=== PATIENT | female | born 1995 | race Caucasian/White ===

== ENCOUNTER 2023-07-24 21:26 | Inpatient (IN) ==
[2023-07-24 22:18] LABS: Appearance Urine Clear (Clear); Bacteria Urine Automated Negative (Negative); Bilirubin Urine Negative (Negative); Blood Urine 1+ (Negative); Color Urine Yellow; Epithelial Cell Urine Auto >30 /lpf (0-5); Glucose Urine UA Trace (Negative); Ketones Urine Negative (Negative); Leukocyte Esterase Urine Negative (Negative); Nitrite Urine Negative (Negative); Protein Urine 3+ (Negative); RBC Urine Automated 0-4 /hpf (0-4); Specific Gravity Urine 1.011 (1.000-1.030); Urobilinogen Urine Negative (Negative)
[2023-07-24 22:21] LABS: Basophils # (auto) 0.04 K/uL (0.00-0.20); Basophils % (auto) 0.5 %; Eosinophils # (auto) 0.12 K/uL (0.00-0.50); Eosinophils % (auto) 1.5 %; Hematocrit (blood only) 32.5 % (37.0-47.0); Hemoglobin 11.4 g/dl (12.0-16.0); Immature Granulocytes # (auto) 0.03 K/uL (0.01-0.20); Immature Granulocytes % (auto) 0.4 %; Lymphocytes # (auto) 1.22 K/uL (1.20-3.40); Lymphocytes % (auto) 15.3 %; Mean Corpuscular Hemoglobin 30.6 pg (25.0-34.0); Mean Corpuscular Hgb Conc 35.1 g/dL (32.0-36.0); Mean Corpuscular Volume 87.4 fL (80.0-100.0); Mean Platelet Volume 10.4 fL (9.4-12.4); Monocytes # (auto) 0.34 K/uL (0.11-0.59); Monocytes % (auto) 4.3 %; Neutrophils # (auto) 6.22 K/uL (1.40-6.50); Platelet Count 166 K/uL (130-400); RDW Coefficient of Variation 12.4 % (11.5-14.5); RDW Standard Deviation 39.8 fL (36.4-46.3); Red Blood Count 3.72 M/uL (4.20-5.40); White Blood Count 7.97 K/ul (4.8-10.8)
--- NOTE | 2023-07-24 22:32 | Emergency Department Note ---
History of Present Illness General Chief complaint: Abdominal Pain Stated complaint: ABDOMINAL PAIN, ON DIALYSIS, POSSIBLE PARATINITIS Time Seen by Provider: 07/24/23 22:10 History of Present Illness Maximum Pain Intensity: 7 This is a 28-year-old female presenting to the emergency department for evaluation of abdominal pains worsening over the past 4 to 5 hours. The patient has a history of chronic kidney disease and follows primarily with [facility] for PCP and transplant services. She began peritoneal dialysis about 2 months ago and reached out to her nephrology team, who sent her to the ER for possible peritonitis. Patient has not had fevers or chills. She has some discomfort at the exit site of her PD catheter. Her effluent has been clear and certainly not cloudy. She does make a small amount of urine, and this has not been uncomfortable. She rates her discomfort a 7/10. Home Medications Medication Instructions Recorded Confirmed Type carvedilol 12.5 mg tablet 12.5 mg PO BID 07/24/23 07/24/23 History levofloxacin 250 mg tablet 250 mg PO DAILY 07/24/23 07/24/23 History levothyroxine 50 mcg tablet 50 mcg PO DAILYBB 07/24/23 07/24/23 History promethazine-DM 6.25 mg-15 mg/5 mL 5 ml PO QID PRN Cough 07/24/23 07/24/23 History oral syrup Allergies Allergy/AdvReac Type Severity Reaction Status Date / Time amoxicillin [From Augmentin] Allergy Intermediate Rash Verified 07/24/23 23:24 clavulanic acid Allergy Intermediate Rash Verified 07/24/23 23:24 [From Augmentin] pollen extracts Allergy Intermediate ITCHY Verified 07/24/23 23:24 EYES, SNEEZING, CONGESTION Past Med/Surg History Medical History (Updated 07/25/23 @ 04:35 by Denzel Ruffin PA-C) Proteinuria FSGS (focal segmental glomerulosclerosis) Nephrotic syndrome Chronic kidney disease, stage V Surgical History (Updated 07/24/23 @ 22:31 by Denzel Ruffin PA-C) History of section H/O laparoscopy With intraperitoneal catheter placement performed 05/29/2023 Dr. Laci Elena @ [facility]. Social History Smoking Status: Never smoker Feels Safe at Home: Yes Review of Systems A total of 10 systems reviewed and were otherwise negative Physical Exam Vital Signs Vital Signs - 24 hr 07/24/23 21:34 07/24/23 22:22 07/25/23 01:00 Temperature 36.5 C Temperature Source Temporal Artery Scan Pulse Rate 103 H Pulse Rate [Finger] Pulse Rate [Right Radial] 86 87 Respiratory Rate 18 18 17 Respiratory Effort / Characteristics Non-Labored Spontaneous Respiratory Depth Normal Blood Pressure 140/88 Blood Pressure [Right Arm] 140/86 138/83 Blood Pressure Mean 105 Blood Pressure Mean [Right Arm] 104 101 Pulse Oximetry 100 99 99 Oxygen Delivery Method Room Air Room Air Room Air Sepsis Recent Fever Within 48 Hours No Sepsis New/Unexplained Change in Mental Status No Sepsis Action Taken by Nursing No Action Required 07/25/23 02:57 07/25/23 04:18 Temperature Temperature Source Pulse Rate Pulse Rate [Finger] 75 62 Pulse Rate [Right Radial] Respiratory Rate 20 16 Respiratory Effort / Characteristics Respiratory Depth Blood Pressure Blood Pressure [Right Arm] 138/83 132/80 Blood Pressure Mean Blood Pressure Mean [Right Arm] 101 97 Pulse Oximetry 99 97 Oxygen Delivery Method Room Air Room Air Sepsis Recent Fever Within 48 Hours Sepsis New/Unexplained Change in Mental Status Sepsis Action Taken by Nursing VITALS: Vitals are noted on the nurse's note and reviewed by myself. Vital signs stable. GENERAL: Well-developed, well-nourished, white female, who is in no acute distress and resting comfortably. Patient is cooperative with the examination. HEAD: Normocephalic atraumatic. MOUTH: Mucous membranes moist. Tonsils are not enlarged. Pharynx without erythema, blood, or exudate. Uvula midline. Airway patent. NECK: Supple without nuchal rigidity. No lymphadenopathy. No thyromegaly. Cervical spine is nontender. HEART: Regular rate and rhythm without murmurs gallops or rubs. LUNGS: Clear to auscultation bilaterally without wheezes, rales or rhonchi. No retractions or accessory muscle use. ABDOMEN: Positive normal bowel sounds x 4. Soft, nontender, without masses or organomegaly. No guarding or rebound tenderness. PD catheter site appears appropriately positioned. Course Administered Medications Discontinued Medications Acetaminophen (Acetaminophen 500 Mg Tab) 1,000 mg PO NOW STA Stop: 07/25/23 03:00 Last Admin: 07/25/23 03:04 Dose: 1,000 mg Documented By: DOLLY Medical Decision Making Differential Diagnosis Differential diagnosis: Etiologies such as biliary colic, cholecystitis, hepatitis, pancreatitis, cardiac disease, pancreatitis, gastritis, peptic ulcer disease, appendicitis, cystitis, diverticulitis, mesenteric ischemia, inflammatory bowel disease, ileus, bowel obstruction, testicular/adnexal torsion, aortic pathology, shingles, as well as others were considered Laboratory Data 07/24/23 Unknown 07/24/23 Unknown Lab Results 07/24/23 07/24/23 07/24/23 Range/Units 21:50 21:51 Unknown WBC 7.97 (4.8-10.8) K/ul RBC 3.72 L (4.20-5.40) M/uL Hgb 11.4 L (12.0-16.0) g/dl Hct 32.5 L (37.0-47.0) % MCV 87.4 (80.0-100.0) fL MCH 30.6 (25.0-34.0) pg MCHC 35.1 (32.0-36.0) g/dL RDW Std Deviation 39.8 (36.4-46.3) fL RDW Coeff of [place] 12.4 (11.5-14.5) % Plt Count 166 (130-400) K/uL MPV 10.4 (9.4-12.4) fL Immature Gran % (Auto) 0.4 % Neut % (Auto) 78.0 % Lymph % (Auto) 15.3 % [place] % (Auto) 4.3 % Eos % (Auto) 1.5 % Baso % (Auto) 0.5 % Neut # (Auto) 6.22 (1.40-6.50) K/uL Lymph # (Auto) 1.22 (1.20-3.40) K/uL [place] # (Auto) 0.34 (0.11-0.59) K/uL Eos # (Auto) 0.12 (0.00-0.50) K/uL Baso # (Auto) 0.04 (0.00-0.20) K/uL Immature Gran # (Auto) 0.03 (0.01-0.20) K/uL Sodium 136 (136-145) mmol/L Potassium 3.4 L (3.5-5.1) mmol/L Chloride 97 L (98-107) mmol/L Carbon Dioxide 27 (21-32) mmol/L Anion Gap 12 H (3-11) BUN 60 H (6-23) mg/dl Creatinine 9.79 H* (0.6-1.2) mg/dl Est Cr Clr Drug Dosing 9.1 ml/min Est GFR ( Amer) 5.7 ml/min Est GFR (Non-Af Amer) 4.9 ml/min BUN/Creatinine Ratio 6.1 L (10-20) Glucose 84 (70-99(Fasting)) mg/dl Lactate 0.7 (0.4-2.0) mmol/L Calcium 9.2 (8.6-10.3) mg/dl Total Bilirubin 0.4 (0.2-1.0) mg/dl AST 14 (13-39) U/L ALT 15 (7-52) U/L Alkaline Phosphatase 83 (34-104) U/L Total Protein 7.1 (6.0-8.3) gm/dl Albumin 4.1 (3.4-5.0) gm/dl Globulin 3.0 (2.5-4.0) gm/dl Albumin/Globulin Ratio 1.4 (0.9-2) Lipase 25 (11-82) U/L Urine Color Yellow Urine Appearance Clear (Clear) Urine pH 7.0 (4.5-7.5) Ur Specific [place] 1.011 (1.000-1.030) Urine Protein 3+ H (Negative) Urine Glucose (UA) Trace H (Negative) Urine Ketones Negative (Negative) Urine Blood 1+ H (Negative) Urine Nitrite Negative (Negative) Urine Bilirubin Negative (Negative) Urine Urobilinogen Negative (Negative) Ur Leukocyte Esterase Negative (Negative) Urine WBC (Auto) 1-5 (0-5) /hpf Urine RBC (Auto) 0-4 (0-4) /hpf U Hyaline Cast (Auto) 1-5 (0-5) /lpf U Epithel Cells (Auto) >30 H (0-5) /lpf Urine Bacteria (Auto) Negative (Negative) POC Ur Test NEG (NEG) Adenovirus (PCR) Not Detected (NotDetected) B. pertussis DNA (PCR) Not Detected (NotDetected) B.parapertussis DNA PCR Not Detected (NotDetected) C. pneumoniae DNA (PCR) Not Detected (NotDetected) Coronavirus OC43 (PCR) Not Detected (NotDetected) Coronavirus HKU1 (PCR) Not Detected (NotDetected) Coronavirus 229E (PCR) Not Detected (NotDetected) SARS-CoV-2 (PCR) Not Detected (NotDetected) Coronavirus NL63 (PCR) Not Detected (NotDetected) Human Metapneumovir PCR Not Detected (NotDetected) Influenza Type A (PCR) Not Detected (NotDetected) Influenza Type B (PCR) Not Detected (NotDetected) M. pneumoniae (PCR) Not Detected (NotDetected) Parainfluenza 1 (PCR) Not Detected (NotDetected) Parainfluenza 2 (PCR) Not Detected (NotDetected) Parainfluenza 3 (PCR) Not Detected (NotDetected) Parainfluenza 4 (PCR) Not Detected (NotDetected) RSV (PCR) Not Detected (NotDetected) Entero/Rhino (PCR) Not Detected (NotDetected) Imaging Data Radiologist's Impression: Abdomen/Pelvis CT 07/24/23 22:24 Exam(s): CT ABDOMEN + PELVIS Without Contrast EXAM: CT Abdomen and Pelvis Without Intravenous Contrast CLINICAL HISTORY: Pain. TECHNIQUE: Axial computed tomography images of the abdomen and pelvis without intravenous contrast. CTDI is 22.78 mGy and DLP is 1180.04 mGy-cm. Automated exposure control was utilized for the study. A dose lowering technique was utilized adhering to the principles of ALARA. COMPARISON: No relevant prior studies available. FINDINGS: Lung bases: Unremarkable. No mass. No consolidation. ABDOMEN: Liver: Unremarkable. Gallbladder and bile ducts: Unremarkable. No calcified stones. No ductal dilation. Pancreas: Unremarkable. No ductal dilation. Spleen: Unremarkable. No splenomegaly. Adrenals: Unremarkable. No mass. Kidneys and ureters: Atrophic kidneys. No obstructing stones. No hydronephrosis. Stomach and bowel: Unremarkable. No obstruction. No mucosal thickening. PELVIS: Appendix: Normal appendix. Bladder: Thickening of the urinary bladder wall could relate to nondistention or cystitis. No stones. Reproductive: Unremarkable as visualized. ABDOMEN and PELVIS: Intraperitoneal space: Trace free air likely relates to the peritoneal dialysis catheter. No significant fluid collection. Bones/joints: There are degenerative changes of the spine. No acute fracture. No dislocation. Soft tissues: Unremarkable. Vasculature: Unremarkable. No abdominal aortic aneurysm. Lymph nodes: Unremarkable. No enlarged lymph nodes. Tubes, lines and devices: There is a peritoneal dialysis catheter. IMPRESSION: 1. Thickening of the urinary bladder wall could relate to nondistention or cystitis. 2. Atrophic kidneys. Electronically signed by: Bronwyn Sandy MD 07/25/23 00:43 AM MDM Narrative Physical exam and history were performed. Nursing notes, EMR, and Medication List were personally reviewed. No social concerns were identified as barriers to patients care. I did engage with case management and reviewed patient's outpatient [facility] records including PCP and transplant notes. Patient appears to have abdominal discomfort bringing her to the ER. Symptoms have been ongoing for the past several hours. She does not appear toxic on exam and abdomen is fairly soft without significant reproducible tenderness. I discussed options of care with the patient. IV access was established and labs were obtained. She was sent to CT scan for imaging of her abdomen and pelvis. Patient's blood work is as above and was reviewed. She does not have a significantly elevated white blood cell count, gross anemia, bandemia, or significant electrolyte imbalance. Potassium is 3.4. Creatinine is greater than 9, and this is fairly consistent for the patient over the past 1 to 2 months per her outpatient labs. Lactic is negative with blood cultures pending. I did reach out to the on-call [facility] cotton expert, Dr Mo, and after discussion with nephrology it would be reasonable to bring the patient into the ER. She may need peritoneal fluid tapping for culture, as well as possibly peritoneal antibiotics. She does not appear toxic on current presentation, and the case was discussed with the [facility] hospitalist team. [facility] further patient course, plan, and disposition. The chart was completed utilizing [employer] Speech Voice Recognition Software. Grammatical errors, random word insertions, pronoun errors, and incomplete sentences are an occasional consequence of this system due to software limitations, ambient noise, and hardware issues. Any formal questions or concerns about the content, text, or information contained within the body of this dictation should be directly addressed to the provider for clarification. . Impression & Plan Abdominal pain, Chronic kidney disease, stage V, Complication of peritoneal dialysis Discharge Plan Visit Data Chief Complaint: Abdominal Pain Stated Complaint: ABDOMINAL PAIN, ON DIALYSIS, POSSIBLE PARATINITIS ED Provider: Emerson Yun ED Midlevel Provider: Denzel Ruffin Discharge Problem: Abdominal pain, Chronic kidney disease, stage V, Complication of peritoneal dialysis Forms Stand Alone Forms: My [facility] Prescriptions Prescriptions: No Action carvedilol 12.5 mg tablet 12.5 mg PO BID levofloxacin 250 mg Tablet 250 mg PO DAILY Rx Instructions: STARTED 07/23/23/ FOR 3 DAYS levothyroxine 50 mcg tablet 50 mcg PO DAILYBB promethazine-DM 6.25-15 mg/5 mL syrup 5 ml PO QID PRN (Reason: Cough) Referrals Referrals: PCP,NO [Physician] -
[2023-07-24 22:48] LABS: Albumin Globulin Ratio 1.4 (0.9-2); Albumin Level 4.1 gm/dl (3.4-5.0); BUN Creatinine Ratio 6.1 (10-20); Bilirubin,Total 0.4 mg/dl (0.2-1.0); Calcium 9.2 mg/dl (8.6-10.3); Creatinine Clr Calc Pharmacy 9.1 ml/min; Est GFR (African American) 5.7 ml/min; Est GFR (Non-African American) 4.9 ml/min; Potassium 3.4 mmol/L (3.5-5.1); Total Protein 7.1 gm/dl (6.0-8.3)
[2023-07-24 23:47] LABS: Adenovirus PCR Not Detected (NotDetected); Bordetella parapertussis PCR Not Detected (NotDetected); Bordetella pertussis PCR Not Detected (NotDetected); Chlamydia pneumoniae PCR Not Detected (NotDetected); Coronavirus 229E PCR Not Detected (NotDetected); Coronavirus CoV-2 (COVID19)PCR Not Detected (NotDetected); Coronavirus HKU1 PCR Not Detected (NotDetected); Coronavirus NL63 PCR Not Detected (NotDetected); Coronavirus OC43PCR Not Detected (NotDetected); Human Metapneumovirus PCR Not Detected (NotDetected); Influenza A PCR Not Detected (NotDetected); Influenza B PCR Not Detected (NotDetected); Mycoplasma pneumoniae PCR Not Detected (NotDetected); Parainfluenza Virus 1 PCR Not Detected (NotDetected); Parainfluenza Virus 2 PCR Not Detected (NotDetected); Parainfluenza Virus 3 PCR Not Detected (NotDetected); Parainfluenza Virus 4 PCR Not Detected (NotDetected); Respiratory Syncytial VirusPCR Not Detected (NotDetected); Rhinovirus/Enterovirus PCR Not Detected (NotDetected)
[2023-07-25] MEDS ORDERED: cephALEXin 500 MG CAP PO SCH
--- NOTE | 2023-07-25 00:44 | CT Scan Report ---
Exam(s): CT ABDOMEN + PELVIS Without Contrast EXAM: CT Abdomen and Pelvis Without Intravenous Contrast CLINICAL HISTORY: Pain. TECHNIQUE: Axial computed tomography images of the abdomen and pelvis without intravenous contrast. CTDI is 22.78 mGy and DLP is 1180.04 mGy-cm. Automated exposure control was utilized for the study. A dose lowering technique was utilized adhering to the principles of ALARA. COMPARISON: No relevant prior studies available. FINDINGS: Lung bases: Unremarkable. No mass. No consolidation. ABDOMEN: Liver: Unremarkable. Gallbladder and bile ducts: Unremarkable. No calcified stones. No ductal dilation. Pancreas: Unremarkable. No ductal dilation. Spleen: Unremarkable. No splenomegaly. Adrenals: Unremarkable. No mass. Kidneys and ureters: Atrophic kidneys. No obstructing stones. No hydronephrosis. Stomach and bowel: Unremarkable. No obstruction. No mucosal thickening. PELVIS: Appendix: Normal appendix. Bladder: Thickening of the urinary bladder wall could relate to nondistention or cystitis. No stones. Reproductive: Unremarkable as visualized. ABDOMEN and PELVIS: Intraperitoneal space: Trace free air likely relates to the peritoneal dialysis catheter. No significant fluid collection. Bones/joints: There are degenerative changes of the spine. No acute fracture. No dislocation. Soft tissues: Unremarkable. Vasculature: Unremarkable. No abdominal aortic aneurysm. Lymph nodes: Unremarkable. No enlarged lymph nodes. Tubes, lines and devices: There is a peritoneal dialysis catheter. IMPRESSION: 1. Thickening of the urinary bladder wall could relate to nondistention or cystitis. 2. Atrophic kidneys. Electronically signed by: Bronwyn Sandy MD 07/25/23 00:43 AM
[2023-07-25] MEDS ORDERED: ACETAMINOPHEN 500 MG TAB PO STA (02:59)
--- NOTE | 2023-07-25 05:47 | History & Physical Report ---
Date of Service July 25, 2023 Assessment & Plan (1) Abdominal pain: Plan: 28-year-old female with past medical history significant for hypothyroidism, hypertension, nephrotic syndrome, focal segmental glomerulosclerosis with nephrosis,end-stage renal disease on peritoneal dialysis, history of abnormal uterine bleeding, anxiety and depression presents with severe abdominal pain. Pain is located around peritoneal dialysis catheter site. Denies any fevers. No chest pain or shortness of breath. No nausea. No headache. No runny nose or sore throat or cough. No diarrhea or constipation. Hemodynamics are stable. Abdominal pain Possible PD cath site infection CT scan no obvious findings Pain control IV Invanz for now Consult nephrology for further recommendations History of focal segmental glomerulosclerosis End-stage renal disease on peritoneal dialysis Nephro consult Hypertension On Coreg Hypothyroidism On Synthyroid DVT prophylaxis SCDs for now Disposition Medical floor Full code History of Present Illness Chief Complaint: Abdominal pain Primary Care Provider: Robert Gtz 28-year-old female with past medical history significant for hypothyroidism, hypertension, nephrotic syndrome, focal segmental glomerulosclerosis with nephrosis,end-stage renal disease on peritoneal dialysis, history of abnormal uterine bleeding, anxiety and depression presents with severe abdominal pain. Pain is located around peritoneal dialysis catheter site. Denies any fevers. No chest pain or shortness of breath. No nausea. No headache. No runny nose or sore throat or cough. No diarrhea or constipation. Hemodynamics are stable. Past medical history. As mentioned above Past surgical history. . Insert contraceptive capsules. IR biopsy. Laparoscopic insertion of intraperitoneal cannula. Renal biopsy. Social history. No smoking. No alcohol use. No drug use. Family history. Father has scoliosis. Allergies Allergy/AdvReac Type Severity Reaction Status Date / Time amoxicillin [From Augmentin] Allergy Intermediate Rash Verified 07/24/23 23:24 clavulanic acid Allergy Intermediate Rash Verified 07/24/23 23:24 [From Augmentin] pollen extracts Allergy Intermediate ITCHY Verified 07/24/23 23:24 EYES, SNEEZING, CONGESTION Home Medications Medication Instructions Recorded Confirmed Type carvedilol 12.5 mg tablet 12.5 mg PO BID 07/24/23 07/24/23 History levofloxacin 250 mg tablet 250 mg PO DAILY 07/24/23 07/24/23 History levothyroxine 50 mcg tablet 50 mcg PO DAILYBB 07/24/23 07/24/23 History promethazine-DM 6.25 mg-15 mg/5 mL 5 ml PO QID PRN Cough 07/24/23 07/24/23 History oral syrup Past Med/Surg History Medical History (Updated 07/25/23 @ 04:35 by Denzel Ruffin PA-C) Proteinuria FSGS (focal segmental glomerulosclerosis) Nephrotic syndrome Chronic kidney disease, stage V Surgical History (Updated 07/24/23 @ 22:31 by Denzel Ruffin PA-C) History of section H/O laparoscopy With intraperitoneal catheter placement performed 05/29/2023 Dr. Laci Briones on @ [facility]. Social History Smoking Status: Never smoker Feels Safe at Home: Yes Review of Systems Review of Systems: All systems reviewed & are unremarkable except as noted in HPI & below Physical Exam Physical Exam: General- Not in distress Head- atraumatic Eyes- PERRL. ENT- oropharynx clear Neck- supple, no JVD. Lungs- clear to auscultation no wheezing or crackles. Heart- regular rhythm; no murmur, no gallop. Abdomen- normal bowel sounds, soft, nontender, no distension. Peritoneal cath site no erythema or drainage seen. Extremities- no pretibial edema, no erythema Neuro- alert, oriented x 3; PERRL no facial palsy; no dysarthria; moves extremities. Skin- warm & dry Results & Data Results & Data Vital Signs (Past 12 Hours) Vital Signs Temp Pulse Pulse Pulse Resp BP BP 07/25/23 04:18 62 16 132/80 07/25/23 02:57 75 20 138/83 07/25/23 01:00 87 17 138/83 07/24/23 22:22 86 18 140/86 07/24/23 21:34 36.5 C 103 H 18 140/88 Pulse Ox O2 Del Method 07/25/23 04:18 97 Room Air 07/25/23 02:57 99 Room Air 07/25/23 01:00 99 Room Air 07/24/23 22:22 99 Room Air 07/24/23 21:34 100 Room Air Diagnostic Findings Laboratory Results WBC 7.97 K/ul (4.8-10.8) 07/24/23 Unknown RBC 3.72 M/uL (4.20-5.40) L 07/24/23 Unknown Hgb 11.4 g/dl (12.0-16.0) L 07/24/23 Unknown Hct 32.5 % (37.0-47.0) L 07/24/23 Unknown MCV 87.4 fL (80.0-100.0) 07/24/23 Unknown MCH 30.6 pg (25.0-34.0) 07/24/23 Unknown MCHC 35.1 g/dL (32.0-36.0) 07/24/23 Unknown RDW Std Deviation 39.8 fL (36.4-46.3) 07/24/23 Unknown RDW Coeff of [place] 12.4 % (11.5-14.5) 07/24/23 Unknown Plt Count 166 K/uL (130-400) 07/24/23 Unknown MPV 10.4 fL (9.4-12.4) 07/24/23 Unknown Immature Gran % (Auto) 0.4 % 07/24/23 Unknown Neut % (Auto) 78.0 % 07/24/23 Unknown Lymph % (Auto) 15.3 % 07/24/23 Unknown [place] % (Auto) 4.3 % 07/24/23 Unknown Eos % (Auto) 1.5 % 07/24/23 Unknown Baso % (Auto) 0.5 % 07/24/23 Unknown Neut # (Auto) 6.22 K/uL (1.40-6.50) 07/24/23 Unknown Lymph # (Auto) 1.22 K/uL (1.20-3.40) 07/24/23 Unknown [place] # (Auto) 0.34 K/uL (0.11-0.59) 07/24/23 Unknown Eos # (Auto) 0.12 K/uL (0.00-0.50) 07/24/23 Unknown Baso # (Auto) 0.04 K/uL (0.00-0.20) 07/24/23 Unknown Immature Gran # (Auto) 0.03 K/uL (0.01-0.20) 07/24/23 Unknown Sodium 136 mmol/L (136-145) 07/24/23 Unknown Potassium 3.4 mmol/L (3.5-5.1) L 07/24/23 Unknown Chloride 97 mmol/L (98-107) L 07/24/23 Unknown Carbon Dioxide 27 mmol/L (21-32) 07/24/23 Unknown Anion Gap 12 (3-11) H 07/24/23 Unknown BUN 60 mg/dl (6-23) H 07/24/23 Unknown Creatinine 9.79 mg/dl (0.6-1.2) H* 07/24/23 Unknown Est Cr Clr Drug Dosing 9.1 ml/min 07/24/23 Unknown Est GFR ( Amer) 5.7 ml/min 07/24/23 Unknown Est GFR (Non-Af Amer) 4.9 ml/min 07/24/23 Unknown BUN/Creatinine Ratio 6.1 (10-20) L 07/24/23 Unknown Glucose 84 mg/dl (70-99(Fasting)) 07/24/23 Unknown Lactate 0.7 mmol/L (0.4-2.0) 07/24/23 Unknown Calcium 9.2 mg/dl (8.6-10.3) 07/24/23 Unknown Total Bilirubin 0.4 mg/dl (0.2-1.0) 07/24/23 Unknown AST 14 U/L (13-39) 07/24/23 Unknown ALT 15 U/L (7-52) 07/24/23 Unknown Alkaline Phosphatase 83 U/L (34-104) 07/24/23 Unknown Total Protein 7.1 gm/dl (6.0-8.3) 07/24/23 Unknown Albumin 4.1 gm/dl (3.4-5.0) 07/24/23 Unknown Globulin 3.0 gm/dl (2.5-4.0) 07/24/23 Unknown Albumin/Globulin Ratio 1.4 (0.9-2) 07/24/23 Unknown Lipase 25 U/L (11-82) 07/24/23 Unknown Urine Color Yellow 07/24/23 21:50 Urine Appearance Clear (Clear) 07/24/23 21:50 Urine pH 7.0 (4.5-7.5) 07/24/23 21:50 Ur Specific [place] 1.011 (1.000-1.030) 07/24/23 21:50 Urine Protein 3+ (Negative) H 07/24/23 21:50 Urine Glucose (UA) Trace (Negative) H 07/24/23 21:50 Urine Ketones Negative (Negative) 07/24/23 21:50 Urine Blood 1+ (Negative) H 07/24/23 21:50 Urine Nitrite Negative (Negative) 07/24/23 21:50 Urine Bilirubin Negative (Negative) 07/24/23 21:50 Urine Urobilinogen Negative (Negative) 07/24/23 21:50 Ur Leukocyte Esterase Negative (Negative) 07/24/23 21:50 Urine WBC (Auto) 1-5 /hpf (0-5) 07/24/23 21:50 Urine RBC (Auto) 0-4 /hpf (0-4) 07/24/23 21:50 U Hyaline Cast (Auto) 1-5 /lpf (0-5) 07/24/23 21:50 U Epithel Cells (Auto) >30 /lpf (0-5) H 07/24/23 21:50 Urine Bacteria (Auto) Negative (Negative) 07/24/23 21:50 POC Ur Test NEG (NEG) 07/24/23 21:51 Adenovirus (PCR) Not Detected (NotDetected) 07/24/23 Unknown B. pertussis DNA (PCR) Not Detected (NotDetected) 07/24/23 Unknown B.parapertussis DNA PCR Not Detected (NotDetected) 07/24/23 Unknown C. pneumoniae DNA (PCR) Not Detected (NotDetected) 07/24/23 Unknown Coronavirus OC43 (PCR) Not Detected (NotDetected) 07/24/23 Unknown Coronavirus HKU1 (PCR) Not Detected (NotDetected) 07/24/23 Unknown Coronavirus 229E (PCR) Not Detected (NotDetected) 07/24/23 Unknown SARS-CoV-2 (PCR) Not Detected (NotDetected) 07/24/23 Unknown Coronavirus NL63 (PCR) Not Detected (NotDetected) 07/24/23 Unknown Human Metapneumovir PCR Not Detected (NotDetected) 07/24/23 Unknown Influenza Type A (PCR) Not Detected (NotDetected) 07/24/23 Unknown Influenza Type B (PCR) Not Detected (NotDetected) 07/24/23 Unknown M. pneumoniae (PCR) Not Detected (NotDetected) 07/24/23 Unknown Parainfluenza 1 (PCR) Not Detected (NotDetected) 07/24/23 Unknown Parainfluenza 2 (PCR) Not Detected (NotDetected) 07/24/23 Unknown Parainfluenza 3 (PCR) Not Detected (NotDetected) 07/24/23 Unknown Parainfluenza 4 (PCR) Not Detected (NotDetected) 07/24/23 Unknown RSV (PCR) Not Detected (NotDetected) 07/24/23 Unknown Entero/Rhino (PCR) Not Detected (NotDetected) 07/24/23 Unknown Impressions Abdomen/Pelvis CT 07/24/23 22:24 Exam(s): CT ABDOMEN + PELVIS Without Contrast EXAM: CT Abdomen and Pelvis Without Intravenous Contrast CLINICAL HISTORY: Pain. TECHNIQUE: Axial computed tomography images of the abdomen and pelvis without intravenous contrast. CTDI is 22.78 mGy and DLP is 1180.04 mGy-cm. Automated exposure control was utilized for the study. A dose lowering technique was utilized adhering to the principles of ALARA. COMPARISON: No relevant prior studies available. FINDINGS: Lung bases: Unremarkable. No mass. No consolidation. ABDOMEN: Liver: Unremarkable. Gallbladder and bile ducts: Unremarkable. No calcified stones. No ductal dilation. Pancreas: Unremarkable. No ductal dilation. Spleen: Unremarkable. No splenomegaly. Adrenals: Unremarkable. No mass. Kidneys and ureters: Atrophic kidneys. No obstructing stones. No hydronephrosis. Stomach and bowel: Unremarkable. No obstruction. No mucosal thickening. PELVIS: Appendix: Normal appendix. Bladder: Thickening of the urinary bladder wall could relate to nondistention or cystitis. No stones. Reproductive: Unremarkable as visualized. ABDOMEN and PELVIS: Intraperitoneal space: Trace free air likely relates to the peritoneal dialysis catheter. No significant fluid collection. Bones/joints: There are degenerative changes of the spine. No acute fracture. No dislocation. Soft tissues: Unremarkable. Vasculature: Unremarkable. No abdominal aortic aneurysm. Lymph nodes: Unremarkable. No enlarged lymph nodes. Tubes, lines and devices: There is a peritoneal dialysis catheter. IMPRESSION: 1. Thickening of the urinary bladder wall could relate to nondistention or cystitis. 2. Atrophic kidneys. Electronically signed by: Bronwyn Sandy MD 07/25/23 00:43 AM Code Status & VTE Plan VTE Prophylaxis Plan VTE Prophylaxis will be ordered: Yes
[2023-07-25] MEDS ORDERED: ACETAMINOPHEN 325 MG TAB PO PRN (09:33)
[2023-07-25] MEDS ORDERED: HYDROmorphone INJ 0.5 MG/0.5 ML SYR IV PRN (09:33)
[2023-07-25] MEDS ORDERED: carvediloL 12.5 MG TAB PO SCH (09:33)
[2023-07-25] MEDS ORDERED: LEVOTHYROXINE SODIUM 50 MCG TABLET PO SCH (09:33)
[2023-07-25] MEDS ORDERED: ERTAPENEM SODIUM 500 MG in SYRINGE 0 ML IV SCH (10:00)
[2023-07-25 10:34] LABS: Basophils # (auto) 0.03 K/uL (0.00-0.20); Basophils % (auto) 0.6 %; Eosinophils % (auto) 1.9 %; Hematocrit (blood only) 28.6 % (37.0-47.0); Hemoglobin 10.3 g/dl (12.0-16.0); Immature Granulocytes # (auto) 0.03 K/uL (0.01-0.20); Immature Granulocytes % (auto) 0.6 %; Lymphocytes # (auto) 0.98 K/uL (1.20-3.40); Lymphocytes % (auto) 18.6 %; Mean Corpuscular Hemoglobin 31.2 pg (25.0-34.0); Mean Corpuscular Volume 86.7 fL (80.0-100.0); Mean Platelet Volume 10.2 fL (9.4-12.4); Monocytes # (auto) 0.25 K/uL (0.11-0.59); Monocytes % (auto) 4.7 %; Neutrophils # (auto) 3.88 K/uL (1.40-6.50); Neutrophils % (auto) 73.6 %; Platelet Count 133 K/uL (130-400); RDW Coefficient of Variation 12.3 % (11.5-14.5); RDW Standard Deviation 39.1 fL (36.4-46.3); White Blood Count 5.27 K/ul (4.8-10.8)
[2023-07-25] MEDS: MUPIROCIN 2% OINT 22 GM TUBE EXT SCH ×2 (10:44→14:37)
[2023-07-25 10:46] LABS: BUN Creatinine Ratio 6.4 (10-20); Calcium 8.9 mg/dl (8.6-10.3); Creatinine Clr Calc Pharmacy 8.6 ml/min; Est GFR (African American) 5.3 ml/min; Est GFR (Non-African American) 4.6 ml/min; Magnesium 2.2 mg/dl (1.7-2.4)
[2023-07-25 11:24] LABS: Appearance Peritoneal Fluid Clear; Color Peritoneal Fluid Colorless; RBC Peritoneal Fluid Auto < 2000 /uL; WBC Peritoneal Fluid Auto < 10 /ul (0-300)
--- OUTSIDE RECORDS SUMMARY | 2023-07-25 11:31 | External Medical Summary | Summary of Care ---
Author Name Unknown Organization [facility] Address [address] [place] [address] Phone [phone] Care Team Providers Care User Experience Team Lead Name Role Phone Robert Garza PA-C Primary Care Provider [phone] Reason for Visit * Reason Onset Date Comments Appointment 07/21/2023 Encounter Details Date Type Department Care Team (Late st Contact Info) Description 07/21/2023 Telephone Trans[facility], [place] [address] [place] [address] Alexei Ross DNP [address] [place] [address] Appointment Allergies Active Allergy Reactions Criticality Noted Date Comments Amoxicillin-Pot Clavulanate Hives 04/26/2016 Pollen Other (Please comment) Medium 04/12/2012 Seasonal allergies: Itchy watery eyes, sneezes. documented as of this encounter (statuses as of 07/21/2023) Medications Medication Sig Dispensed Refills Start Date End Date Status Sodium Bicarbonate 650 MG Oral TabletIndications: CKD (chronic kidney disease) stage 5, GFR less than 15 ml/min ([facility]),Metabolic acidosis Take 1 Tablet by mouth in the morning and 1 Tablet before bedtime. 180 Tablet 2 08/29/2022 Active Additional Information Patient not taking.Reported on 06/18/2023 Vitamin D (Ergocalciferol) 92788 UNIT Oral CapsuleIndications :Vitamin D deficiency Take 50,000 Units by mouth once a week. 10 Capsule 4 11/06/2022 Active Sertraline HCl 50 MG Oral Tablet (Zoloft) Take 1 Tablet by mouth in the morning. 30 Tablet 5 11/05/2022 Active Levothyroxine Sodium 50 MCG Oral Tablet (Levoxyl) Take 1 Tablet by mouth daily first thing in the morning. (at least 30 min prior to breakfast or other meds) 30 Tablet 5 11/20/2022 Active Calcium Acetate (Phos Binder) 667 MG Oral Capsule (Phoslo)Indication s:Chronic kidney disease, stage 5 (HCC) Take 2 Capsules by mouth in the morning and 2 Capsules at noon and 2 Capsules in the evening. Take with meals. 180 Capsule 1 03/24/2023 Active Ferrous Sulfate 325 (65 Fe) MG Oral Tablet (FeroSul)Indicatio ns:Iron deficiency anemia, unspecified iron deficiency anemia type Take 1 Tablet by mouth in the morning and 1 Tablet before bedtime. 180 Tablet 2 04/21/2023 Active oxyCODONE HCl 5 MG Oral Tablet (Oxy IR) Take 1 Tablet by mouth every 6 hours as needed for Pain, Severe. 5 Tablet 0 05/29/2023 Active Additional Information Patient not taking.Reported on 06/01/2023 Furosemide 80 MG Oral Tablet (Lasix) Take 1 tablet by mouth daily. 90 Tablet 3 06/04/2023 Active Additional Information Patient not taking.Reported on 06/18/2023 Carvedilol 12.5 MG Oral Tablet (Coreg) Take 1 Tablet by mouth in the morning and 1 Tablet before bedtime. 0 Active Promethazine-DM 6.25-15 MG/5ML Oral Syrup Take 5 mL by mouth 4 times a day as needed for Cough. 120 mL 1 06/30/2023 Active documented as of this encounter (statuses as of 07/21/2023) Active Problems Problem Noted Date Diagnosed Date Postop check 05/29/2023 Anxiety and depression 05/21/2023 Chronic kidney disease, stage 5 09/29/2022 Overview: Per CKD protocol Abnormal uterine bleeding (AUB) 07/29/2022 Encounter for gynecological examination with abnormal finding 07/29/2022 Acquired hypothyroidism 05/08/2022 HTN, goal below 130/80 08/03/2019 FSGS (focal segmental glomerulosclerosis) with n ephrosis 08/03/2019 Nephrotic range proteinuria 08/03/2019 Nephrotic syndrome 11/13/2017 Overview: See 11/2015 note documented as of this encounter (statuses as of 07/21/2023) Resolved Problems Problem Noted Date Diagnosed Date Resolved Date Hypertensive urgency 05/08/2022 022 Stage 4 chronic kidney disease 05/08/2022 10/01/2022 Overview: Per CKD protocol Body mass index (BMI) of 40. 0 to 44.9 in adult 10/28/2021 10/15/2022 Overview: Per Obesity protocol Morbid (severe) obesity due to excess calories 07/18/2019 06/21/2022 GBS (group B streptococcus) infection 10/01/2018 11/12/2018 Overview: RV probe positive for GBS. Will in treat when in labor per protocol. Severe pre-eclampsia in third trimester 09/29/2018 11/12/2018 Nexplanon removal 09/27/2018 05/01/2021 Overview: No, Advance Directive brochure offered, patient declined. Dichorionic diamniotic twin , antepartum 07/26/2018 12/29/2018 Low back pain during pregnan cy in second trimester 05/31/2018 12/29/2018 Persistent proteinuria 05/06/201806/21 Encounter for supervision of other normal , unspecified trimester 03/17/2018 019 Overview: 03/17/18 Problem Action Taken Date entered Entered by Date resolved BMI greater than 30 Discuss importance of proper diet 03/17/2018 Jen Kessler RN 03/17/18 Fatigue Schedule a short nap if possible Take vitamins Good nutrition and hydration will help Exercise every day will help regulate the extremes 03/17/2018 Jen Kessler RN 03/17/18 Nutrition Currently receiving food stamps and WIC - letter given for current 03/17/18 Jen Kessler RN 03/17/18 Education Booklet and appropriate trimester education reviewed. 03/17/2018 Jen Kessler RN 03/17/18 04/20/18 Problem Action Taken Date entered Entered by Date resolved High Risk - twins Provider referral to Maternal Medicine 04/20/2018 Jen Kessler RN 04/20/18 05/31/18 Problem Action Taken Date entered Entered by Date resolved Backache Encourage good posture and body mechanics Wear supportive footwear Back stretching exercises and pelvic rock exercises Tylenol as needed 05/31/2018 Jen Kessler RN ongoing 06/28/18 Problem Action Taken Date entered Entered by Date resolved Current needs or questions Patient denies having any current needs or questions 06/28/2018 Jen Kessler RN 06/28/18 Gestational proteinuria in third trimester 04/29/2016 12/29/2018 , with renal disease 12/13/2015 05/01/2021 Class 1 obesity 12/13/2015 05/01/2021 Obesity in , antepartum 12/13/2015 06/21/2022 Hypothyroid in , antepartum 12/13/2015 07/21/2019 Supervision of high risk pre gnancy in third trimester 09/13/2015 12/29/2018 Overview: 09/13/2015 Problem Action Taken Date entered Entered by Date resolved First Referral sent to [facility] 09/13/2015 Jen Kessler RN 09/13/2015 Nausea and vomiting due to Nutrition Review 9 months booklet 09/13/2015 Jen Kessler RN ongoing Nutrition Pamphlet given for WIC 09/13/2015 Jen Kessler RN 09/13/2015 Education Booklet and appropriate trimester education reviewed. 09/13/2015 Jen Kessler RN 09/13/2015 10/15/2015 Problem Action Taken Date entered Entered by Date resolved Current needs or questions Patient denies having any current needs or questions. Has decided to decline NFP. 10/15/2015 Jen Kessler RN 10/15/2015 11/15/2015 Problem Action Taken Date entered Entered by Date resolved Current needs or questions Patient denies having any current needs or questions 11/15/2015 Jen Kessler RN 11/15/2015 01/07/2016 Problem Action Taken Date entered Entered by Date resolved Current needs or questions Patient denies having any current needs or questions 01/07/2016 Jen Kessler RN 01/07/2016 02/04/2016 Problem Action Taken Date entered Entered by Date resolved Current needs or questions Patient denies having any current needs or questions 02/04/2016 Jen Kessler RN 02/04/2016 02/18/2016 Problem Action Taken Date entered Entered by Date resolved Current needs or questions Patient denies having any current needs or questions 02/18/2016 Jen Kessler RN 02/18/2016 03/03/2016 Problem Action Taken Date entered Entered by Date resolved Current needs or questions Patient denies having any current needs or questions 03/03/2016 Jen Kessler RN 03/03/2016 04/16/2016 Problem Action Taken Date entered Entered by Date resolved Current needs or questions Patient denies having any current needs or questions 04/16/2016 Jen Kessler RN 04/16/2016 ICD-10 update of inactive term Surveillance of previously p rescribed contraceptive method 04/25/2009 12/29/2018 Overview: Implanon left arm 04/19/09, removal due 04/19/2012 Viral warts 02/13/2009 04/25/2009 Overview: ICD-10 update of inactive term NO KNOWN PROBLEMS 03/30/2009 documented as of this encounter (statuses as of 07/21/2023) Immunizations Name Administration Dates Next Due Pneumococcal Conjugate Vacci ne, 20-valent ([id number]) 05/29/2023(Deferred: Patient Refused) Seasonal Influenza, PF, 6 M & above, IM , (FluLaval or Fluzone) 07/21/2019 TDAP (age 10 and older)(Boostrix) 10/03/2018,07/2015 documented as of this encounter Social History Tobacco Use Types Packs/Day Years Used Date Smoking Tobacco: Never Smokeless Tobacco: Never Alcohol Use Standard Drinks/Week Comments No 0 (1 standard drink = 0.6 oz pur e alcohol) PHQ-2 Answer Date Recorded PHQ-2 Score 0 05/23/2018 Hunger Vital Sign Answer Date Recorded Within the past 12 months, y ou worried that your food would run out before you got the money to buy more. Never true 07/30/19 23 Within the past 12 months, t he food you bought just didn't last and you didn't have money to get more. Never true 07/30/2022 Sex and Gender Information Value Date Recorded Sex Assigned at Female 05/01/2021 5:18 PM EDT Gender Identity Female 05/01/2021 5:18 PM EDT Sexual Orientation Straight 05/01/2021 5: 18 PM EDT Job Start Date Occupation Industry Not on file Not on file Not on file documented as of this encounter Functional Status Functional Status Response Date of Assess ment Are you deaf or do you have serious difficulty h earing? No 05/08/2022 Are you blind or do you have serious difficulty seeing, even when wearing glasses? No 05/08/2022 Do you have serious difficul ty walking or climbing stairs? (5 years old or older) No 05/08/2022 Do you have difficulty dress ing or bathing? (5 years old or older) No 05/08/2022 Because of a physical, menta l, or emotional condition, do you have difficulty doing errands alone such as visiting a doctor s office or shopping? (15 years old or older) No 05/08/20 22 Cognitive Status Response Date of Assessm ent Because of a physical, menta l, or emotional condition, do you have serious difficulty concentrating, remembering, or making decisions? (5 years old or older) No 05/08/2022 documented as of this encounter Miscellaneous Notes * Telephone Encounter - Laurie Guevara OSA - 07/21/2023 2:36 PM EST Please reschedule the annual eval that pt canceled for tomorrow with Mauricio * Telephone Encounter - Ashlee Hatch - Kathe Ob/OrHEIDE - 07/21/2023 1:40 PM EST Elysia all she is schedule for 1.3 needs to reschedule would like 1.8 if possible if not an am time Please call her back Thank you ashlee documented in this encounter Plan of Treatment Upcoming Encounters Date Type Department Care Team ([facility] st Contact Info) Description 07/29/2023 8:00 AM EST Telemedicine Transplant Surgery 3rd Floor PIO, Amy Kohler [address] [place] [address] Coordinator, Transplant Nurse [address] [place] [address] 09/18/2023 12:00 PM EST Office Visit [facility] [address] [place] [id number] Robert Garza PA-C [address] [place] [id number] Health Maintenance Due Date Last Done Comments Hepatitis B (1 of 3 - 3-dose series) 1996 COVID-19 Vaccine (#1) 1996 Pneumococcal Vaccine: Pediatrics (0 to 5 Years) and At-Risk Patients (6 to 64 Years) (1 - PCV) 01/03/2002 Depression Screening 08/02/2020 08/02/2019 Influenza Vaccine (FLU shot) (#1) 2023 07/21/2019 TSH 06/02/2024 06/02/2023, 10/19, 06/23/2022, Additional history exists Pap Smear 07/29/2025 07/29/2022, 11/13/2017 DTaP,Tdap,and Td Vaccines (3 - Td or Tdap) 10/03/2028 10/03/2018, 02/18/2016 Gonorrhea / Chlamydia Screen Discontinued 07/29/2022, 08/02/2019, 03/17/2018, Additional history exists Albumin/Creatinine Ratio Discontinued 10/06/2022, 04/20 Nephrology Referral Discontinued 06/01/2023 GARDASIL-HPV IMMUNIZATION SERIES Aged Out No longer eligible based on patient's age to complete this topic MENINGOCOCCAL (MENACTRA/MENVEO) Aged Out No longer eligible based on patient's age to complete this topic documented as of this encounter Medical Devices Not on filedocumented as of this encounter Advance Directives Latest Code Status on File Code Status Date Activated Date Inactivated Comments Full Code 05/29/2023 9:34 AM 05/29/2023 8:09 PM Question Answer Comments Discussion of Advance Direct kendell occurred with: Patient Code Status History Code Status Date Activated Date Inactivated Comments Full Code 05/08/2022 6:36 PM 05/09/2022 6:05 PM Thi s order reflects the patients wishes and were consensually agreed upon. Question Answer Comments Discussion of Advance Directives occurred with: Patient Does the patient have a Living Will? No Does the patient have Health Care Power of [place]? No Full Code 09/28/2018 11:48 PM 10/03/2018 4:20 PM This order reflects the patients wishes and were consensually agreed upon. Full Code 04/26/2016 12:06 PM 04/29/2016 11:05 PM Th is order reflects the patients wishes and were consensually agreed upon. Care Teams User Experience Team Lead Relationship Specialty Start Date End Date Robert Garza PA-C [address] [place] [address] [place] [address] PCP - General Physician Construction Sales Representative 06/18/22 documented as of this encounter
--- OUTSIDE RECORDS SUMMARY | 2023-07-25 11:31 | External Medical Summary | Summary of Care ---
Author Name Unknown Organization [facility] Address [address] [place] [address] Phone [phone] Support Name Relationship Address Phone Agnieszka Lane Mother Unknown Yudelkachidi Lane Grandparent Unknown Bryce [place] Emergency Contact 48 07/21 [facility] [place] [address] Care Team Providers Care Body Builder Apprentice Name Role Phone Robert Garza PA-C Primary Care Provider [phone] [phone] Reason for Visit * Reason Comments Cold Symptoms Encounter Details Date Type Department Care Team (Late st Contact Info) Description 06/30/2023 3:35 PM EST [facility] [place] [address] [place] [address] Denzel Carney PA-C [address] [place] [place] [address] Upper respiratory tract infection, unspecified type* Allergies Active Allergy Reactions Criticality Noted Date Comments Amoxicillin-Pot Clavulanate Hives 04/26/2016 Pollen Other (Please comment) Medium 04/12/2012 Seasonal allergies: Itchy watery eyes, sneezes. documented as of this encounter (statuses as of 06/30/2023) Medications Medication Sig Dispensed Refills Start Date End Date Status Sodium Bicarbonate 650 MG Oral TabletIndications: CKD (chronic kidney disease) stage 5, GFR less than 15 ml/min (HCC),Metabolic acidosis Take 1 Tablet by mouth in the morning and 1 Tablet before bedtime. 180 Tablet 2 08/29/2022 Active Additional Information Patient not taking.Reported on 06/18/2023 Vitamin D (Ergocalciferol) 17873 UNIT Oral CapsuleIndications :Vitamin D deficiency Take [...] and 1 Tablet before bedtime. 0 Active predniSONE 20 MG Oral Tablet (Deltasone) Take 1 Tablet by mouth in the morning and 1 Tablet before bedtime. Do all this for 3 days. 6 Tablet 0 06/30/2023 07/03/2023 Active Promethazine-DM 6.25-15 MG/5ML Oral Syrup Take 5 mL by mouth 4 times a day as needed for Cough. 120 mL 1 06/30/2023 Active documented as of this encounter (statuses as of 06/30/2023) Active Problems Problem Noted Date Diagnosed Date [...] as of this encounter (statuses as of 06/30/2023) Resolved Problems Problem Noted Date Diagnosed Date [...] as of this encounter (statuses as of 06/30/2023) Immunizations Name Administration Dates Next Due Pneumococcal Conjugate Vacci ne, 20-valent ([id number]) 05/29/2023(Deferred: Patient Refused) Seasonal Influenza, PF, 6 [...] on file documented as of this encounter Last Filed Vital Signs Vital Sign Reading Time Taken Comments Blood Pressure 161/124 06/30/2023 3:38 PM EST on dialysis and was high this morning; happens; has next dialysis 1HR form now. Pulse 76 06/30/2023 3:38 PM EST Temperature 37.1 C (98.8 F) 06/30/2023 3 :38 PM EST Respiratory Rate 14 06/30/2023 3:38 PM EST Oxygen Saturation 100% 06/30/2023 3:3 8 PM EST Inhaled Oxygen Concentration - - Weight 88.5 kg (195 lb) 06/30/2023 3:38 PM EST Height - - Body Mass Index 33.47 05/29/2023 9:41 AM EST documented in this encounter Functional Status Functional Status Response [...] (15 years old or older) No 05/08/20 Cognitive Status Response Date of Assessm ent Because of a physical, menta l, or emotional condition, do you have serious difficulty concentrating, remembering, or making decisions? (5 years old or older) No 05/08/2022 documented as of this encounter Patient Instructions * Patient Instructions* Denzel Carney PA-C - 06/30/2023 4:13 PM EST FLUIDS FLUIDS FLUIDS; TYLENOL DIRECTED FOR PAIN AND FEVERS; HUMIDIFY RETURN TO or SEE PCP IF NEEDED. documented in this encounter Progress Notes * Denzel Carney PA-C - 06/30/2023 3:38 PM EST . Subjective: Radha Lane is a 28 year old female. No chief complaint on file. There are no exam notes on file for this visit. HPI: 3 DAYS OF SINUS PRESSURE AND FATIGUE; BAD COUGING; LOTS OF PRESSURE IN EARS ALSO; HAS BEEN TAKING NOTHING OTC DUE TO KIDNEY; TYLENOL FOR THE HEADACHE/ACHES; NO N/V/D; NO CONCERNS ABOUT COVID/FLU/RSV - NO KNOWN CONTACTS RECENTLY, BUT KIDS HAVE BEEN SICK WITH OFF/ON SINUS ISSUES SINCE ; PATIENT IS CURRENTLY IN DIALYSIS; BP THIS MORNING WAS 160s/>100s; GOING BACK IN AN HOUR FROM NOWFOR ANOTHER DIALYSIS AND THE HOPES IS IT WILL GO DOWN; HAPPENS AT TIMES; BROTHER MEETING WITH TRANSPLANT TEAM IN A FEW WEEKS - LOOKS LIKE HE IS A MATCH. All other systems reviewed and are negative. 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 Do all this for 3 days. 6 Tablet 0 Promethazine-DM 6.25-15 MG/5ML Oral Syrup Take 5 mL by mouth 4 times a day as needed for Cough. 120mL 1 Sodium Bicarbonate 650 MG Oral Tablet Take 1 Tablet by mouth in the morning and 1 Tablet before bedtime. (Patient not taking: Reported on 06/18/2023) 180 Tablet 2 Vitamin D (Ergocalciferol) 47954 UNIT Oral Capsule Take 50,000 Units by mouth once a week. 10 Capsule 4 Sertraline HCl 50 MG Oral Tablet (Zoloft) Take 1 Tablet by mouth in the morning. 30 Tablet 5 Levothyroxine Sodium 50 MCG Oral Tablet (Levoxyl) Take 1 Tablet by mouth daily first thing in the morning. (at least 30 min prior to breakfast or other meds) 30 Tablet 5 Calcium Acetate (Phos Binder) 667 MG Oral Capsule (Phoslo) Take 2 Capsules by mouth in the morning and 2 Capsules at noon and 2 Capsules in the evening. Take with meals. 180 Capsule 1 Ferrous Sulfate 325 (65 Fe) MG Oral Tablet (FeroSul) Take 1 Tablet by mouth in the morning and 1 Tablet before bedtime. 180 Tablet 2 oxyCODONE HCl 5 MG Oral Tablet (Oxy IR) Take 1 Tablet by mouth every 6 hours as needed for Pain, Severe. (Patient not taking: Reported on 06/01/2023) 5 Tablet 0 Furosemide 80 MG Oral Tablet (Lasix) Take 1 tablet by mouth daily. (Patient not taking: Reported on06/18/2023) 90 Tablet 3 Carvedilol 12.5 MG Oral Tablet (Coreg) Take 1 Tablet by mouth in the morning and 1 Tablet before bedtime. No current facility-administered medications for this visit. Review of patient's allergies indicates: Allergen Reactions Environmental [Pollen] Other (Please comment) Seasonal allergies: Itchy watery eyes, sneezes. Augmentin [Amoxicillin-Pot Clavulanate] Hives OBJECTIVE: BP (!) 161/124 (BP Site: Left Arm, BP Position: Sitting, BP Cuff Size: Regular) Comment: on dialysis and was high this morning; happens; has next dialysis 1HR form now. | Pulse 76 | Temp 37.1 C (98.8 F) (Tympanic) | Resp 14 | Wt 88.5 kg (195 lb) | SpO2 100% | BMI 33.47 kg/m | BSA 2 m Review of Systems: See HPI. All other systems reviewed and are negative. PHYSICAL EXAM: General: alert, healthy, and no distress; FATIGUED. Head: Normocephalic, No masses, lesions, tenderness or abnormalities Eye Exam: PERRLA, extraocular movements intact, conjunctiva are pink and non- injected, sclera GLASSY BUT NO D/C Ears: External ears normal, Canals clear, TM's NORMAL Nose: no mucosal erythema, ++ mucosal edema, no purulent discharge Oropharynx: no exudate, NO erythema, lips, buccal mucosa, and tongue normal, and mucous membranes are moist; NO PND Lymph: NO palpable lymphadenopathy Heart: regular rate & rhythm, no murmur, and no gallops Lungs; NO WHEEZE; NO RHONCHI ASSESSMENT/PLAN: Upper respiratory tract infection, unspecified type (Primary) - INFLUENZA A/B RSV SARS-COV2,PCR Other orders - predniSONE 20 MG Oral Tablet (Deltasone); Take 1 Tablet by mouth in the morning and 1 Tablet before bedtime. Do all this for 3 days. - Promethazine-DM 6.25-15 MG/5ML Oral Syrup; Take 5 mL by mouth 4 times a day as needed for Cough. Denzel Carney PA-C 06/30/23 documented in this encounter Plan of Treatment Upcoming Encounters Date Type Department Care Team (Late st Contact Info) Description 07/29/2023 8:00 AM EST Telemedicine Transplant Surgery 3rd Floor [facility] [address] [facility] [place] [address] Coordinator, Transplant Nurse [address] [place] [facility] [place] [address] 07/29/2023 11:30 AM EST Office Visit Trans[facility] Clinic, [place] [address] [place] [address] Alexei Ross, ARON [address] [place] [address] Stephanie Milton, VIKTORIYA [address] [place] [address] 07/29/2023 12:40 PM EST Laboratory Outpatient Laboratory, [place] [address] [place] [address] [place], Lab B1a [address] [place] [address] 09/18/2023 12:00 PM EST Office Visit [facility] [address] [place] [address] Robert Garza PA-C [address] [place] [address] Pending Results Name Type Priority Associated Diagnoses Date /Time INFLUENZA A/B RSV SARS-COV2,PCR Lab Routine Upper respiratory tract infection, unspecified type 06/30/2023 3:48 PM EST Health Maintenance Due Date Last Done Comments [...] Not on filedocumented as of this encounter Visit Diagnoses Diagnosis Upper respiratory tract infection, unspecified type- Primary documented in this encounter Advance Directives Latest Code Status [...] the patient have Health Care Power of Manager Solar? No Full Code 09/28/2018 11:48 PM 10/03/2018 4:20 PM This order reflects the patients wishes and were consensually agreed upon. Full Code 04/26/2016 12:06 PM 04/29/2016 11:05 PM Th is order reflects the patients wishes and were consensually agreed upon. Care Teams Body Builder Apprentice Relationship Specialty Start Date End Date Robert Garza PA-C [address] [place] [address] PCP - General Physician Supervisory Historian 06/18/22 documented as of this encounter"
--- OUTSIDE RECORDS SUMMARY | 2023-07-25 11:31 | External Medical Summary | Summary of Care ---
Author Name Unknown Organization [facility] Address [address] [place] [address] Phone [phone] Care Team Providers Care Egg Processor Name Role Phone Robert Garza PA-C Primary Care Provider [phone] [phone] Reason for Visit * Reason Onset Date Comments Appointment 07/21/2023 Encounter Details Date Type Department Care Team (Late st Contact Info) Description 07/21/2023 Telephone Transplant Clinic, [place] [address] [place] [address] Alexei Ross DNP [address] [place] [address] Appointment Allergies Active Allergy Reactions Criticality Noted Date Comments Amoxicillin-Pot Clavulanate Hives 04/26/2016 Pollen Other (Please comment) Medium 04/12/2012 Seasonal allergies: Itchy watery eyes, sneezes. documented as of this encounter (statuses as of 07/21/2023) Medications Medication Sig Dispensed Refills Start Date End Date Status Sodium Bicarbonate 650 MG Oral TabletIndications: CKD (chronic kidney disease) stage 5, GFR less than 15 ml/min ([facility]),Metabolic acidosis Take 1 Tablet by mouth in the morning and 1 Tablet before bedtime. 180 Tablet 2 08/29/2022 Active Additional Information Patient not taking.Reported on 06/18/2023 Vitamin D (Ergocalciferol) 48437 UNIT Oral CapsuleIndications :Vitamin D deficiency Take [...] Next Due Pneumococcal Conjugate Vacci ne, 20-valent ([id number]) 05/29/2023(Deferred: Patient Refused) Seasonal Influenza, PF, 6 [...] encounter Miscellaneous Notes * Telephone Encounter - Asa Hatch - No Ob/Or, HEIDE - 07/21/2023 1:40 PM EST Elysia all she is schedule for 1.3 needs to reschedule would like 1.8 if possible if not an am time Please call her back Thank you asa documented in this encounter Plan of Treatment Upcoming Encounters Date Type Department Care Team (Late st Contact Info) Description 07/29/2023 8:00 AM EST Telemedicine Transplant Surgery 3rd Floor Aym [facility] [address] [place] [address] Coordinator, Transplant Nurse [address] [place] [address] 09/18/2023 12:00 PM EST Office Visit [facility] [address] [facility] [place] [phone] Robert Garza PA-C [address] [place] [address] Health Maintenance Due Date Last Done Comments [...] the patient have Health Care Power of Batch Unloader? No Full Code 09/28/2018 11:48 PM 10/03/2018 4:20 PM This order reflects the patients wishes and were consensually agreed upon. Full Code 04/26/2016 12:06 PM 04/29/2016 11:05 PM Th is order reflects the patients wishes and were consensually agreed upon. Care Teams Egg Processor Relationship Specialty Start Date End Date Robetr Garza PA-C [address] [place] [address] PCP - General Physician Conservation Engineer 06/18/22 documented as of this encounter
--- OUTSIDE RECORDS SUMMARY | 2023-07-25 11:32 | External Medical Summary | Summary of Care ---
Author Name Unknown Organization [facility] Address [address] [place] [address] Phone [phone] Care Team Providers Care Cable Systems Installer Name Role Phone Robert Garza PA-C Primary Care Provider [phone] [phone] Reason for Visit * Reason Onset Date Comments Pre-Transplant Evaluation 06/02/2023 Encounter Details Date Type Department Care Team (Late st Contact Info) Description [facility] [address] [place] [address] Addie Barr, RN [address] [place] [address] Pre-Transplant Evaluation Allergies Active Allergy Reactions Criticality Noted Date Comments Amoxicillin-Pot Clavulanate Hives 04/26/2016 Pollen Other (Please comment) Medium 04/12/2012 Seasonal allergies: Itchy watery eyes, sneezes. documented as of this encounter (statuses as of 06/02/2023) Medications Medication Sig Dispensed Refills Start Date End Date Status Sodium Bicarbonate 650 MG Oral TabletIndications: CKD (chronic kidney disease) stage 5, GFR less than 15 ml/min (HCC),Metabolic acidosis Take 1 Tablet by mouth in the morning and 1 Tablet before bedtime. 180 Tablet 2 08/29/2022 Active Vitamin D (Ergocalciferol) 12401 UNIT Oral CapsuleIndications :Vitamin D deficiency Take [...] Additional Information Patient not taking.Reported on 06/01/2023 documented as of this encounter (statuses as of 06/02/2023) Active Problems Problem Noted Date Diagnosed Date [...] as of this encounter (statuses as of 06/02/2023) Resolved Problems Problem Noted Date Diagnosed Date [...] as of this encounter (statuses as of 06/02/2023) Immunizations Name Administration Dates Next Due Pneumococcal Conjugate Vacci ne, 20-valent ([id number]) 05/29/2023(Deferred: Patient Refused) SEASONAL INFLUENZA, PF, 6 M & Above, IM , (FLULAVAL or FLUZONE) 07/21/2019 TDAP (age 10 and older)(Boostrix) 10/03/2018,07/2015 documented as of this encounter Social History Tobacco Use Types Packs/Day Years Used Date Smoking Tobacco: Never Smokeless Tobacco: Never Alcohol Use Standard Drinks/Week Comments No 0 (1 standard drink = 0.6 oz pur e alcohol) PHQ-2 Answer Date Recorded PHQ-2 Score 0 05/23/2018 Hunger Vital Sign Answer Date Recorded Worried About Running Out of Food in the Last Ye ar Never true 07/21/2019 Ran Out of Food in the Last Year Never true 07/21/2019 Sex and Gender Information Value Date Recorded [...] encounter Miscellaneous Notes * Telephone Encounter - Addie Barr, RN - 06/02/2023 12:52 PM EST I called and spoke to Elysia. I received a message for [employer] about her HLA sample. She needs anupdate. She plans to go today for the sample documented in this encounter Plan of Treatment Upcoming Encounters Date Type Department Care Team (Late st Contact Info) Description 07/29/2023 8:00 AM EST Telemedicine Transplant Surgery 3rd Floor [facility] [place] [address] [place] [facility] [place] [address] Coordinator, Transplant Nurse [address] [place] [facility] [place] [place] [address] 07/29/2023 11:30 AM EST Office Visit Transplant Clinic, [address] [address] Alexei Ross, ARON [address] [place] [address] Stephanie Milton, ELIGIBILITY SERVICES REPRESENTATIVE [address] [place] [address] 07/29/2023 12:40 PM EST Laboratory Outpatient Laboratory, [address] [phone] [place], Lab B1a [address] [place] [address] 09/18/2023 12:00 PM EST Office Visit [address] [address] Robert Garza PA-C [address] [place] [address] Health Maintenance Due Date Last Done Comments Hepatitis B (1 of 3 - 3-dose series) 1996 COVID-19 Vaccine (#1) 1996 Pneumococcal Vaccine: Pediatrics (0 to 5 Years) and At-Risk Patients (6 to 64 Years) (1 - PCV) 01/03/2002 Depression Screening 08/02/2020 08/02/2019 Influenza Vaccine (FLU shot) (#1) 2023 07/21/2019 TSH 11/15/2023 11/14/2022, 1211/2021, 05/08/2022, Additional history exists Pap Smear 07/29/2025 07/29/2022, [...] the patient have Health Care Power of Multi Slide Machine Tender? No Full Code 09/28/2018 11:48 PM 10/03/2018 4:20 PM This order reflects the patients wishes and were consensually agreed upon. Full Code 04/26/2016 12:06 PM 04/29/2016 11:05 PM Th is order reflects the patients wishes and were consensually agreed upon. Care Teams Cable Systems Installer Relationship Specialty Start Date End Date Robert Garza PA-C [address] [place] [address] PCP - General Physician Revenue Cycle Specialist 06/18/22 documented as of this encounter
--- OUTSIDE RECORDS SUMMARY | 2023-07-25 11:32 | External Medical Summary | Summary of Care ---
Author Name Unknown Organization [facility] Address [address] [place] [address] Phone [phone] Care Team Providers Care Mule Developer Name Role Phone Robert Garza PA-C Primary Care Provider [phone] [phone] Encounter Details Date Type Department Care Team (Late st Contact Info) Description 06/12/2023 Orders Only Transplant Clinic, [place] [address], [place] [id number] Agatha Marshall, RN [facility] [place] [address] Pre-transplant evaluation for ESRD (end stage renal disease)* Allergies Active Allergy Reactions Criticality Noted Date Comments Amoxicillin-Pot Clavulanate Hives 04/26/2016 Pollen Other (Please comment) Medium 04/12/2012 Seasonal allergies: Itchy watery eyes, sneezes. documented as of this encounter (statuses as of 06/12/2023) Medications Medication Sig Dispensed Refills Start Date End Date Status Sodium Bicarbonate 650 MG Oral TabletIndications: CKD (chronic kidney disease) stage 5, GFR less than 15 ml/min (HCC),Metabolic acidosis Take 1 Tablet by mouth in the morning and 1 Tablet before bedtime. 180 Tablet 2 08/29/2022 Active Vitamin D (Ergocalciferol) 04608 UNIT Oral CapsuleIndications :Vitamin D deficiency Take [...] mouth daily. 90 Tablet 3 06/04/2023 Active documented as of this encounter (statuses as of 06/12/2023) Active Problems Problem Noted Date Diagnosed Date [...] as of this encounter (statuses as of 06/12/2023) Resolved Problems Problem Noted Date Diagnosed Date [...] as of this encounter (statuses as of 06/12/2023) Immunizations Name Administration Dates Next Due Pneumococcal Conjugate Vacci ne, 20-valent ([id number]) 05/29/2023(Deferred: Patient Refused) SEASONAL INFLUENZA, PF, 6 [...] No 05/08/2022 documented as of this encounter Plan of Treatment Upcoming Encounters Date Type Department Care Team (Late st Contact Info) Description 07/29/2023 8:00 AM EST Telemedicine Transplant Surgery 3rd Floor [facility] [address] [facility] [place] [address] Coordinator, Transplant Nurse [address] [facility] [place] [address] 07/29/2023 11:30 AM EST Office Visit Transplant Clinic, [place] [address] [place] [address] Alexei Ross, DNP [address] [place] [address] Stephanie Milton, SUPERVISOR CUSTOMER COMPLAINT SERVICE [address] [place] [address] 07/29/2023 12:40 PM EST Laboratory Outpatient Laboratory, [place] [address] [place] [address] [place], Lab B1a [address] [place] [address] 09/18/2023 12:00 PM EST Office Visit [facility] [address] [place] [address] Robert Garza PA-C [address] [place] [address] Scheduled Orders Name Type Priority Associated Diagnoses Orde r Schedule MONTHLY HLA CLASS 1 & 2 W/REFLEX, SOLID ORGAN TRANSPLANT Lab STAT Pre-transplant evaluation for ESRD (end stage renal disease) Every Month for 15 Occurrences starting 06/12/2023 until 07/12/2024 Health Maintenance Due Date Last Done Comments [...] as of this encounter Visit Diagnoses Diagnosis Pre-transplant evaluation for ESRD (end stage renal disease)- Primary Other specified pre-operative examination documented in this encounter Advance Directives Latest [...] the patient have Health Care Power of Housecalls Nurse? No Full Code 09/28/2018 11:48 PM 10/03/2018 4:20 PM This order reflects the patients wishes and were consensually agreed upon. Full Code 04/26/2016 12:06 PM 04/29/2016 11:05 PM Th is order reflects the patients wishes and were consensually agreed upon. Care Teams Mule Developer Relationship Specialty Start Date End Date Robert Garza PA-C [address] [place] [address] PCP - General Physician Boom Operator 06/18/22 documented as of this encounter
--- OUTSIDE RECORDS SUMMARY | 2023-07-25 11:32 | External Medical Summary | Summary of Care ---
Demographics Address [address] [place] [address] Mobile Phone Email Address Preferred Language Korean Marital Status Unknown Buddhism Affiliation Unknown Race White Ethnic Group Not or Lati no Author Name Unknown Organization [facility] Address [address] [place] [address] Phone [phone] Support Name Relationship Address Phone Agnieszka Lane Mother Unknown Yudelka Lane Grandparent Unknown Bryce [place] Emergency Contact [address] [place] [address] Care Team Providers Care Pharmacovigilance Specialist Name Role Phone Robert Garza PA-C Primary Care Provider [phone] Reason for Visit * Reason Comments Outpatient Testing Encounter Details Date Type Department Care Team (Late st Contact Info) Description 06/02/2023 1:20 PM EST Laboratory Laboratory Patient Service [address] [phone] [address] Pre-transplant evaluation for ESRD (end stage renal disease); Acquired hypothyroidism; Chronic kidney disease, stage 5 ([facility]) Allergies Active Allergy Reactions Criticality Noted Date Comments Amoxicillin-Pot Clavulanate Hives 04/26/2016 Pollen Other (Please comment) Medium 04/12/2012 Seasonal allergies: Itchy watery eyes, sneezes. documented as of this encounter (statuses as of 06/02/2023) Medications Medication Sig Dispensed Refills Start Date End Date Status Sodium Bicarbonate 650 MG Oral TabletIndications: CKD (chronic kidney disease) stage 5, GFR less than 15 ml/min ([facility]),Metabolic acidosis Take 1 Tablet by mouth in the morning and 1 Tablet before bedtime. 180 Tablet 2 08/29/2022 Active Vitamin D (Ergocalciferol) 54140 UNIT Oral CapsuleIndications :Vitamin D deficiency Take [...] Next Due Pneumococcal Conjugate Vacci ne, 20-valent ([id number]) 05/29/2023(Deferred: Patient Refused) SEASONAL INFLUENZA, PF, 6 [...] AM EST Telemedicine Transplant Surgery 3rd Floor [facility], Amy Kohler [address] [facility] [place] [address] Coordinator, Transplant Nurse [address] [facility] [place] [address] 07/29/2023 11:30 AM EST Office Visit Transplant Clinic, [place] [address] [place] [address] Alexei Ross, [facility] [address] [place] [address] Stephanie Milton, DIE GRINDER [address] [place] [address] 07/29/2023 12:40 PM EST Laboratory Outpatient Laboratory, [place] [address] [place] [address] Lois, Lab [facility] [address] [place] [address] 09/18/2023 12:00 PM EST Office Visit [address] [phone] Robert Garza PA-C [address] [place] [phone] Pending Results Name Type Priority Associated Diagnoses Date /Time MONTHLY HLA CLASS 1 & 2 W/REFLEX, SOLID ORGAN TRANSPLANT Lab STAT Pre-transplant evaluation for ESRD (end stage renal disease) 06/02/2023 1:17 PM EST TSH WITH FREE T4 IF INDICATED Lab Routine Acquired hypothyroidism 06/02/2023 1:17 PM EST 25-HYDROXY VITAMIN D Lab Routine Chronic kidney disease, stage 5 (HCC) 06/02/2023 1:17 PM EST Health Maintenance Due Date Last Done Comments Hepatitis B (1 of 3 - 3-dose series) 1996 COVID-19 Vaccine (#1) 1996 Pneumococcal Vaccine: Pediatrics (0 to 5 Years) and At-Risk Patients (6 to 64 Years) (1 - PCV) 01/03/2002 Depression Screening 08/02/2020 08/02/2019 Influenza Vaccine (FLU shot) (#1) 2023 07/21/2019 TSH 11/15/2023 11/14/2022, 11/2021, 05/08/2022, Additional history exists Pap Smear 07/29/2025 [...] evaluation for ESRD (end stage renal disease) Other specified pre-operative examination Acquired hypothyroidism Unspecified hypothyroidism Chronic kidney disease, stage 5 (HCC) documented in this encounter Advance Directives Latest [...] the patient have Health Care Power of Retarder Operator? No Full Code 09/28/2018 11:48 PM 10/03/2018 4:20 PM This order reflects the patients wishes and were consensually agreed upon. Full Code 04/26/2016 12:06 PM 04/29/2016 11:05 PM Th is order reflects the patients wishes and were consensually agreed upon. Care Teams Pharmacovigilance Specialist Relationship Specialty Start Date End Date Robert Garza PA-C [address] [place] [id number] PCP - General Physician Line Builder 06/18/22 documented as of this encounter
--- OUTSIDE RECORDS SUMMARY | 2023-07-25 11:32 | External Medical Summary | Summary of Care ---
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 [N04.1] Procedures LAPAROSCOPY, W/ INSERT INTRAPERITONEAL CATH LAPAROSCOPIC INSERTION INTRAPERITONEAL CANNULA OR CATHETER Referral ID Status Reason Start Date Expiration Date Visits Re quested Visits Authorized [id number] Encounter Details Date Type Department Care Team (Latest Contact Info) Description 05/29/2023 9:27 AM EST - 05/29/2023 4:09 PM EST Hospital Encounter OR GL, Operating Room, [facility] - 4th Floor [address] [facility] [place] [address] Donnie Elena MD [address] [facility] [address] [place] [address] Discharge Disposition: Home - Self Care Allergies Active Allergy Reactions Criticality Noted Date Comments Amoxicillin-Pot Clavulanate Hives 04/26/2016 Pollen Other (Please comment) Medium 04/12/2012 Seasonal allergies: Itchy watery eyes, sneezes. documented as of this encounter (statuses as of 05/30/2023) Medications Medication Sig Dispensed Refills Start Date End Date Status Sodium Bicarbonate 650 MG Oral TabletIndications: CKD (chronic kidney disease) stage 5, GFR less than 15 ml/min (HCC),Metabolic acidosis Take 1 Tablet by mouth in the morning and 1 Tablet before bedtime. 180 Tablet 2 08/29/2022 Active Vitamin D (Ergocalciferol) 96850 UNIT Oral CapsuleIndications :Vitamin D deficiency Take [...] Pain, Severe. 5 Tablet 0 05/29/2023 Active Carvedilol 12.5 MG Oral Tablet (Coreg) TAKE 1 TABLET BY MOUTH 2 TIMES A DAY WITH MORNING AND EVENING MEALS. 60 Tablet 11 05/09/2022 05/29/2023 documented as of this encounter (statuses as of 05/30/2023) Active Problems Problem Noted Date Diagnosed Date [...] as of this encounter (statuses as of 05/30/2023) Resolved Problems Problem Noted Date Diagnosed Date [...] as of this encounter (statuses as of 05/30/2023) Immunizations Name Administration Dates Next Due Pneumococcal Conjugate Vacci ne, 20-valent ([id number]) 05/29/2023(Deferred: Patient Refused) SEASONAL INFLUENZA, PF, 6 [...] Sign Reading Time Taken Comments Blood Pressure 134/86 05/29/2023 3:57 PM EST Pulse 56 05/29/2023 3:57 PM EST Temperature 36 C (96.8 F) 05/29/2023 3:57 PM EST Respiratory Rate 14 05/29/2023 3:57 PM EST Oxygen Saturation 100% 05/29/2023 3:57 PM EST Inhaled Oxygen Concentration - - Weight 89.8 kg (198 lb) 05/29/2023 9:41 AM EST Height 162.6 cm (5' 4") 05/29/2023 9:41 AM EST Body Mass Index 33.99 05/29/2023 9:41 AM EST documented in this [...] or making decisions? (5 years old or older No 05/08/2022 documented as of this encounter Discharge Summaries * Missy Ny MD - 05/29/2023 1:09 PM EST [facility] [address] OUTPATIENT SURGERY DISCHARGE SUMMARY NOTE Name: Radha Lane Location: [place] [facility] Date: 05/29/2023 Time: 1:10 PM Surgery Date: 05/29/2023 Procedure: Procedure(s): LAPAROSCOPIC INSERTION INTRAPERITONEAL CANNULA OR CATHETER N/A Surgeon: Surgeon(s): Donnie Elena MD Jammula, Shreya, MD Blase, Gina, PA-Mirza Discharge Diagnosis: End stage renal disease After examination of this patient, I have determined she is ready for discharge to home when the patient meets criteria. Discharge instructions were given to the patient. documented in this encounter Discharge Instructions * Discharge Instr - AVS* Missy Ny MD - 05/29/2023 12:56 PM EST Discharge Date: 05/29/2023 You may call Doctor Elena of the department of General Surgery at [phone] during business hours for any questions or test results. Your attending physician at the time of your discharge was: Donnie Elena [address] [place] [address] Brief summary of your care: You underwent the procedure listed below. You tolerated this operation well and were discharged home after tolerating adequate oral intake and had good pain control. Please follow-up with the dialysis nurse in 1 week for dressing change. You do not need to follow-up withDr. Elena unless you have an issue with your incisions Your primary diagnosis at discharge was Need for peritoneal dialysis access Your doctors during this hospitalization included: Dr. Elena Inpatient test results pending: Surgical pathology Operations & Procedures: 05/29/2023 Placement of peritoneal dialysis catheter Complications: none significant Diet: normal diet Pain control: Please take the following medication every six hours for three days after your surgery: -Tylenol 975mg (3 tabs of 325mg) every 6 hours. Do not take more than 4000mg of Tylenol in 24 hours. You may also try ice packs or heating pads to the abdomen as needed to help with pain and swelling / bruising. If your pain is not controlled with the above medications, you may take the Oxycodone 5mg tabs every 4 to 6 hours as needed in addition. You may also try ice packs or heating pads to the abdomen as needed to help with pain and swelling / bruising. Wound instructions: - You may take off the tape and 4x4 off on 05/31/23. Please only remove the dressings on the right side of the abdomen and the smaller one on the bottom midline. The larger dressing on the left side of the abdomen is the dialysis catheter. This dressing should only be changed sterilely. DO NOT REMOVE THE DRESSING FROM THE LEFT SIDE. - Your incisions are closed with sutures and Steri-strips. The sutures do not have to be removed. The Steri-strips will fall off on its own. - You may shower, but do not scrub vigorously over the incisions. - Do not immerse the incision (for example, no swimming, no tub baths, no hot tubs). Activity: No strenuous activity for 4-6 weeks Getting up and walking after surgery aids recovery in many ways. Much of the pain after major surgery is from muscle spasm. Getting out of bed, sitting and walking help you loosen up and actually reduce your pain. This also helps your breathing and quickens the recovery of your bowel function. Walking and using the stairs is permitted. You should try to get lots of rest. You should avoid full activity and vigorous exercise for about six to eight weeks after surgery. Driving: Don't drive until you are off narcotics for one full week and can walk normally and firmlyapply the brake without pain. Date you may return to work or school: N/A See your primary care physician as needed. Special Instructions: Call the Surgery office if you have any questions or concerns or if you experience any of the following: - Elevated temperatures of 101.5 degrees or greater - Persistent nausea and vomiting - Pus-like drainage or redness around the incision or wound - Pain that is not controlled with prescribed medications Additional Instructions: - Take a stool softener while taking narcotic pain medication; hold for loose stools. - May shower, but do not scrub vigorously over the incisions. - Do not immerse the incision (for example, no swimming, no tub baths, no hot tubs). documented in this encounter Progress Notes * Philippe Montano [facility] - 05/29/2023 1:00 PM EST PHARMACY DISCHARGE MEDICATION RECONCILIATION REVIEW [address] [address] Name: Radha Lane Location: [place] [facility]/[place] Date: 05/29/2023 Time: 1:00 PM This discharge medication reconciliation was reviewed by a pharmacist and no corrections or interventions were required. documented in this encounter H&P Notes * Missy Ny MD - 05/29/2023 11:15 AM EST HISTORY & PHYSICAL INTERVAL NOTE - General Surgery [address] [address] History and Physical Update: Name: Radha Lane Location: OR [facility] Date: 05/29/2023 Time: 11:15 AM DATE OF HISTORY AND PHYSICAL: 05/29/2023 BP: 158 mmHg/103 mmHg (05/29/23 1004) Pulse: 74 (05/29/[address]) Temp: 36.5 C (05/29/[address]) Resp: 18 (05/29/[address]) SpO2: 100 % (05/29/[address]) Does patient take a beta luci? No Did patient stop anticoagulants: None Heart Exam: regular rate and rhythm Lung Exam: clear to auscultation bilaterally Other Pertinent Physical Exam: N?A This patient has undergone a preprocedural evaluation. A determination has been made to proceed with the planned procedure under [facility] procedural guidelines and the CMS Non-Emergent, Elective Medical Services and Treatment Recommendations (published on 10-25-19). The community and hospital prevalence of COVID-19 has been discussed as well as this patient's specific risks associated with SARS-CoV-19 infection. Based upon the clinical acuity and patient-specific care considerations, this procedure is deemed a Tier II - Intermediate acuity treatment or service with either progression or the threat of progressive disease related to the delay in treatment. Not providing the service has the potential for increasing morbidity or mortality. I have reviewed the H&P previously performed and examined the patient today. There are no new findings noted. * Missy Ny MD - 05/29/2023 6:45 AM EST HISTORY AND PHYSICAL EXAMINATION - General Surgery [facility] [address] Name: Radha Lane Location: Room/bed info not found Date: 05/29/2023 Time: 6:45 AM Date of service: 05/05/23 HISTORY OF PRESENT ILLNESS: Patient is a 28 year old female with PMHx of biopsy-proven primary FSGS, nephrotic range proteinuria 2018,CKD stage 5, HTN hypothyroidism presenting for surgical consultation for PD Cath placement. Surgery scheduled 06/15/23 No blood thinners. Previous C section (2018), otherwise no previous surgeries Subjective ROS: CONST: no weight loss, no fever, no fatigue EYES: no changes in vision ENT: no changes in hearing, no sinus problems, no sore throat, no hoarseness, no nodes RESP: no cough, no wheezing, no SOB, no change in breathing CV: no chest pain, no dyspnea, no palpitations, no edema GI: no melena, no hemetemesis, no vomiting, no diarrhea, no constipation : no dysuria, no hematuria, no frequency MSK: no change in joint pains, no new arthritis PSYCH: no anxiety, no depression HEME: no bleeding tendency, no clotting tendency NEURO: no significant headache, no seizures, no strokes SKIN: no new rashes, no itching Past Medical History: Diagnosis Date Chronic kidney disease (CKD), stage II (mild) FSGS (focal segmental glomerulosclerosis) 2016 Hypothyroidism Kidney disease, chronic, stage IV (GFR 15-29 ml/min) ([facility]) 06/20/2021 Nephrotic syndrome 2016 Surveillance of previously prescribed contraceptive method 04/25/2009 Implanon left arm 04/19/09, removal due 04/19/2012 Viral warts, unspecified 02/13/2009 condyloma Current Medications - Prior to This Encounter Medication Sig Last Dose Discont. Ferrous Sulfate 325 (65 Fe) MG Oral Tablet (FeroSul) Take 1 Tablet by mouth in the morning and 1 Tablet before bedtime. 05/04/2023 Calcium Acetate (Phos Binder) 667 MG Oral Capsule (Phoslo) Take 2 Capsules by mouth in the morning and 2 Capsules at noon and 2 Capsules in the evening. Take with meals. 05/04/2023 Levothyroxine Sodium 50 MCG Oral Tablet (Levoxyl) Take 1 Tablet by mouth daily first thing in the morning. (at least 30 min prior to breakfast or other meds) 05/04/2023 Vitamin D (Ergocalciferol) 22211 UNIT Oral Capsule Take 50,000 Units by mouth once a week. 05/04/2023 Sertraline HCl 50 MG Oral Tablet (Zoloft) Take 1 Tablet by mouth in the morning. 05/04/2023 Sodium Bicarbonate 650 MG Oral Tablet Take 1 Tablet by mouth in the morning and 1 Tablet before bedtime. 05/04/2023 Carvedilol 12.5 MG Oral Tablet (Coreg) TAKE 1 TABLET BY MOUTH 2 TIMES A DAY WITH MORNING AND EVENING MEALS. 05/04/2023 Review of patient's allergies indicates: Allergen Reactions Environmental [Pollen] Other (Please comment) Seasonal allergies: Itchy watery eyes, sneezes. Augmentin [Amoxicillin-Pot Clavulanate] Hives Past Surgical History: Procedure Laterality Date DELIVERY ONLY W/ N/A 09/30/2018 DELIVERY AND CARE performed by Mio Fuentes MD at [facility] INSERT CONTRACEPTIVE CAPSULES 04/19/09 Implanon IR BIOPSY 06/04/2022 RENAL BIOPSY, PERCUTANEOUS (TROCAR/NEEDLE) N/A 02/23/2019 RENAL BIOPSY PERCUTANEOUS performed by [place] [facility] [place] [facility] [place] [facility] [place] Family History Problem Relation Age of Onset No Past Hx Mother Other (scoliosis) Father Other (ing hernias) Father No Past Hx Sister No Past Hx Brother Other (Polydactyly) Brother No Known Problems Brother No Known Problems Son No Known Problems Son No Known Problems Son No Known Problems Daughter Social History Tobacco Use Smoking status: Never Smokeless tobacco: Never Vaping Use Vaping Use: Never used Substance Use Topics Alcohol use: No Drug use: No Objective EXAM: BP 189/99 | Pulse 66 | Temp 36.6 C (97.9 F) (Temporal Artery) | Wt 89.8 kg (198 lb) | BMI 33.99kg/m | BSA 2.01 m GENERAL: alert, healthy, no distress, well nourished, and well developed HEAD: Normocephalic, No masses, lesions, tenderness or abnormalities EYES: sclera clear EARS: External ears normal NOSE: no mucosal erythema MOUTH: mucous membranes are moist NECK: supple, no adenopathy LUNGS: normal respiratory rate and rhythm, lungs clear to auscultation, clear to auscultation HEART: regular rate & rhythm, no gallops, and no murmurs ABDOMEN: abdomen soft, non-tender, normal bowel sounds, no masses or organomegaly, and no palpable hernias; well healed incision from BACK: no tenderness to percussion or palpation, No CVA tenderness EXTREMITIES: no edema NEURO: alert & oriented x 3 with fluent speech, no focal motor/sensory deficits SKIN: skin color, texture, turgor are normal, no rashes or significant lesions Assessment & Plan ASSESSMENT: Patient is a 28 year old female with PMHx of biopsy-proven primary FSGS, nephrotic range proteinuria 2018,CKD stage 5, HTN hypothyroidism presenting for surgical consultation for PD Cath placement. PLAN: -Discussed procedure, including risks, benefits, after-care -Patient expressed understanding and agrees Erendira May, This service was discussed with Dr. Elena to review the plan of care. ATTENDING NOTE: I have discussed the patient's management with the medical trainee and agree with the note. Please refer to the documented findings and plan of care. This patient's visit today consisted of an evaluation. I was present and confirmed the findings of the history and exam. Elijah Elena MD documented in this encounter Nursing Notes * Kathrine Geronimo RN - 05/29/2023 4:06 PM EST [address] [address] SameDay Surgery Discharge Note Name: Radha Lane Date: 05/29/2023 Time: 4:07 PM Discharge Disposition: Home Responsible adult as escort home: sister Transport Mode: Wheelchair Accompanied by: Mervat Geronimo RNC-NORA To: Car Belongings with patient: Yes Patient meets criteria to be transferred or discharged. * Chanel Dietz RN - 05/29/2023 9:41 AM EST Patient or the Patients Legally Authorized Leaf Binner has been advised that (1) the Patient meets criteria for testing and (2) the administration of anesthesia, radiation or other imaging agents may have a harmful impact to an unborn child. The Patient or Patients Representativewere offered the opportunity to ask questions as to necessity of such testing and potential outcomes. Consent for testing has been given. * Sally Irving RN - 05/29/2023 9:36 AM EST Patient or the Patients Legally Authorized [place] has been advised that (1) the Patient meets criteria for testing and (2) the administration of anesthesia, radiation or other imaging agents may have a harmful impact to an unborn child. The Patient or Patients Representativewere offered the opportunity to ask questions as to necessity of such testing and potential outcomes. Consent for testing has been given. A * Nicolette Reynolds RN - 05/06/2023 10:07 AM EDT Patient identified by: name/birthdate Person taught: Patient Optime case procedure confirmed with patient/parent/guardian - no consent signed. Laterality confirmed as N/a Surgery date at time of Pre-Surgery Center Encounter: 05/15/2023. What procedure is patient having? LAPAROSCOPIC INSERTION INTRAPERITONEAL CANNULA OR CATHETER ([address]) In an emergency, is patient willing to accept blood products or blood transfusion? Unknown. Do you need to place a blood bank order? No Anesthesia consent pool notified? N/A Anesthesia evaluation requested per case documentation? No Preop Evaluation Requested? No PATIENT EDUCATION SCREENING Person taught: Patient Motivation Level: Asks Questions and Eager to Learn Language Barrier: No Physical Barrier: N/A METHOD: Lecture-telephone interview Patient Preferred Learning Methods: Lecture-Telephone interview Health History interview completed, questions answered, and the following patient instructions provided via telephone interview: Preoperative bathing instructions General preoperative instructions Medication instructions NPO instructions - If your normal morning routine take Coreg, Levothyroxine, and Zoloft the morning of surgery. If you take metformin, hold it the evening before surgery as well. No tobacco products after midnight. OUTCOME: State / Describe / Explain and Needs Reinforcement documented in this encounter OR Notes * OR Surgeon - Missy Ny MD - 05/29/2023 1:11 PM EST [facility] [address] OPERATIVE REPORT Name: Radha Lane Date: 05/29/2023 Time: 1:11 PM Location: [facility] Service: General Surgery Date of Operation: 05/29/2023 Pre-op Diagnosis: Chronic kidney disease, need for peritoneal dialysis access Post-op Diagnosis: Same Operation: Placement of peritoneal dialysis catheter Surgeon: Donnie Elena MD Assistants: Missy Ny MD; Ирина Sykes PA-C Anesthesia: General endotracheal anesthesia 10 ml of Local anesthesia: 0.5% Sensorcaine infiltrated in the incision Drains: Peritoneal dialysis catheter (exiting in left mid abdomen) Estimated Blood Loss: 10 ml. IV Fluids: 100 ml. Urine Output: N/A Specimens/Disposition: None Apparent Intraoperative Complications: NONE Indications: Radha Lane is a 28 year old female who presents with the symptoms, signs, and findings of chronic kidney disease in need of peritoneal dialysis access. She is willing to undergo surgery for placement of peritoneal dialysis catheter. Consent: The details, benefits, risks, options, and alternatives of peritoneal dialysis catheter were explained to the patient, including the risks of bleeding, infection, and injury to the bowel. After apprising her of these risks, Radha Lane verbalized understanding and agreed to proceed. Details: The patient was brought to the operating room, correctly identified as Radha Lane, and positioned supine on the operating room table. After induction of general anesthesia, the abdomenwas sterilely prepped and draped. A timeout occurred, and the correct patient, procedure, and site were verified. A transverse incision above the umbilicus was marked and infiltrated with 0.5% Marcaine w/ Epinephrine. The incision was made with a #15 blade and carried down to the fascia. The fascia was elevated with Sammi clamps, divided with a 15 blade, and a Agustina clamp was used to make peritoneal entry. This was followed by introduction of a 5 mm trocar. The camera was inserted, and the abdomen was insufflated under direct vision to 15 mm Hg pressure. A general inspection revealed no evidence of injuryupon peritoneal entry. An additional 5mm trocar was placed on the right mid abdomen. The pelvis was inspected and minor midline adhesions to the abdominal wall were noted. These were taken down bluntly. A 5mm trocar was placed in the pelvis and the peritoneal dialysis catheter was introduced through that port. The coil of the catheter was positioned in the pelvis. The port site waswithdrawn from the abdomen. The catheter was positioned so the inner cuff lay just outside of the peritoneal lining - in the pre-peritoneal space. The catheter was then attached to a tunneling device and tunneled subcutaneously and brought out inthe patient's left upper abdomen. The catheter was then connected to heparinized saline flushes andthe catheter tested by filling the abdomen saline and subsequently draining the saline out of the abdomen. The catheter was secured to the skin with a prolene suture. The abdomen was desufflated and all trocars removed from the abdomen. The umbilical fascia was closed in a [id number] fashion using 0 Vicryl suture. All incisions were closed with 4-0 Monocryl in subcuticular fashion. Benzoin, steri-strips, and dry dressings were placed. Sterile dressings were additionally placed on the left s sergio to secure the peritoneal dialysis catheter. This terminated the procedure. The patient was extubated and brought to the Post-Operative Care Unit in stable condition. All sponge and needle counts were correct at the completion of the case. Patient Condition: stable Disposition: Post Anesthesia Care Unit Attestation: Dr. Elena was present and scrubbed for the entire procedure documented in this encounter Plan of Treatment Upcoming Encounters Date Type Department Care Team (Late st Contact Info) Description 06/01/2023 10:00 AM EST Scheduled Telephone General Surgery Baldo Mojica [address] [place] [address] Baldo, Nurse Gen Surg Ceci Sultana, RN [address] [place] [address] 06/01/2023 11:20 AM EST Office Visit Nephrology [facility] [address] [facility] [address] [place] [address] Dennis Sanford MD [address] [place], [place] [id number] 07/29/2023 8:00 AM EST Telemedicine Transplant Surgery 3rd Floor PIO, Amy Kohler [address] [facility] [place] [address] Coordinator, Transplant Nurse [address] [facility] [place] [address] 07/29/2023 11:30 AM EST Office Visit Transplant Clinic, [place] [address], [place] [id number] Alexei Ross, [facility] [address] [place] [address] Stephanie Milton, [facility]ER [address], [place] [id number] 07/29/2023 12:40 PM EST Laboratory Outpatient Laboratory, [place] [address] [place] [phone] [place], Lab [address], [place] [id number] 09/18/2023 12:00 PM EST Office Visit Family [address] [address] Robert Garza PA-C [address] [place] [address] Health Maintenance Due Date Last Done Comments [...] Ratio Discontinued 10/06/2022, 04/20 Nephrology Referral Discontinued 04/29/2023 GARDASIL-HPV IMMUNIZATION SERIES Aged Out No longer eligible based on patient's age to complete this topic MENINGOCOCCAL (MENACTRA/MENVEO) Aged Out No longer eligible based on patient's age to complete this topic documented as of this encounter Medical Devices Not on filedocumented as of this encounter Procedures Procedure Name Priority Date/Time Associated Diagnosis Comments GLUCOSE METER, POINT OF CARE BENITO 05/29/2023 10:11 AM EST URINE SCREEN, POINT OF CARE (ENTER/EDIT) STAT 05/29/2023 9:39 AM EST documented in this encounter Results * GLUCOSE METER, POINT OF CARE (05/29/2023 10:11 AM EST) Glucose Meter 75 70 - 120 mg/dL 05/29/2023 10:14 AM EST [facility] Blood Whole blood specimen / Unknown 05/29/2023 10:11 AM EST 05/29/2023 10:14 AM EST Donnie Elena MD LAB POINT OF C ARE TEST DOCKED DEVICE UNSOLICITED RESULTS [facility] [address] [facility] [address] [place] [address] * URINE SCREEN, POINT OF CARE (ENTER/EDIT) (05/29/2023 9:39 AM EST) hCG Beta, Urine Negative Negative Procedural Control Valid? Yes Lot Number [id number] Expiration Date 07/24/24 Urine 05/29/2023 9:39 AM EST Missy Ny MD LAB POINT OF CARE TE ST ENTER/EDIT ORDERABLES documented in this encounter Visit Diagnoses Diagnosis Postop check Follow-up examination, following unspecified surgery documented in this encounter Administered Medications Inactive Administered Medications - up to 3 most recent administrations Medication Order MAR Action Action Date Dose Rate Site Acetaminophen (Tylenol) tab 650 mg 650 mg, Oral, ONCE, On Thu05/29/23 at 1600, For 1 dose, Maximum of 4 grams (4000 mg) per day. Given 05/29/2023 3:30 PM EST 650 mg Acetaminophen (Tylenol) tab 975 mg 975 mg, Oral, PREOP, First dose on Thu05/29/23 at 1015, Last dose on Thu05/29/23 at 1015, For 1 dose, Maximum 4 g acetaminophen/day. Avoid in patients with severe hepatic impairment or severe active liver disease. Administer 60 minutes prior to OR., Pre-Op Given 05/29/2023 9:46 AM EST 975 mg fentaNYL (PF) inj 50 mcg 50 mcg, IV Push, ONCE, On Thu05/29/23 at 1500, For 1 dose, When given IV Push its recommended that the dose be given over 3 to 5 minutes. Given 05/29/2023 2:27 PM EST 50 mcg fentaNYL (PF) inj 50 mcg 50 mcg, IV Push, Q5 MIN PRN Pain, Moderate, Pain, Severe, Starting on Thu05/29/23 at 1420, Until Thu05/29/23 at 2008, Administer up to a total of 200mcg. Administer only postop in PACU When given IV Push its recommended that the dose be given over 3 to 5 minutes., PACU HYDROmorphone (Dilaudid) inj 0.5 mg 0.5 mg, IV Push, Q15 MIN PRN Pain, Severe, Pain, Breakthrough, Starting on Thu05/29/23 at 1420, Until Thu05/29/23 at 2008, Administer only postop in PACU. Hold for respiratory rate less than 12. Administer up to a total of 2mg., PACU metoclopramide (Reglan) inj 10 mg 10 mg, IV Push, ONCE, On Thu05/29/23 at 1600, For 1 dose Given 05/29/2023 3:31 PM EST 10 mg NSS infusion Intravenous, at 25 mL/hr, CONTINUOUS, Starting on Thu05/29/23 at 1015, Until Thu05/29/23 at 2008, Pre-Op Restarted 05/29/2023 12:27 PM EST Continue from Pre-Op 05/29/2023 11:33 AM EST 25 mL/hr New Bag 05/29/2023 10:28 AM EST 25 mL/hr ondansetron (Zofran) inj 4 mg 4 mg, IV Push, ONCE, On Thu05/29/23 at 1500, For 1 dose Given 05/29/2023 2:22 PM EST 4 mg ondansetron (Zofran) inj 4 mg 4 mg, IV Push, Q6H PRN Nausea, Starting on Thu05/29/23 at 1420, Until Thu05/29/23 at 2008, For 1 day, Administer only during the first hour post-op in PACU., PACU oxygen GAS Inhalation, OXYGEN, First dose on Thu05/29/23 at 1600, Until Discontinued, Device/Managed by: Low Flow Device, Goal SPO2 (%): Other, Lower-limit SPO2 (%): 88, Upper-limit SPO2 (%): 92, Starting Device: Nasal Cannula, Inital Flow Rate (LPM): 6 LPM for NC; 10 LPM for NRB mask, Lowest Support: Nasal Cannula: Flow 0-6 LPM. Titrate up/down by 1 LPM., Higher Support: Non-Rebreather (NRB) Mask: Minimum of 10 LPM. Titrate to maintain bag inflation., Titration Interval: Q2 minutes and as needed., Notify Provider: Other, Notify Provider [other]: If SpO2 less than 88%, notify provider immediately, If patient is on Room Air in the PACU and SpO2 is greater than 88% but less than 92% place patient on Nasal Cannula If patient is on Room Air in the PACU and SpO2 is less than 88% place patient on NRB Mask sodium chloride 0.9 % flush peripheral ravi 3 mL 3 mL, IV Push, QSHIFT, First dose on Thu05/29/23 at 1600, Until Discontinued, Do not flush if lock, PICC, or central line not in place; IV infusing or unable to flush., Pre-Op Vancomycin (Vancocin) 1250 mg in NSS 250 mL ivpb 1,250 mg, IV Piggyback, ONCALL, 1 dose, Starting on Thu05/29/23 at 1054, Until Thu05/29/23 at 1150, To be administered within 60 mins of incision time +++ SDS for Tuesday 05/29 +++, Pre-Op New Bag 05/29/2023 10:27 AM EST 1,250 mg 183.33 mL/hr documented in this encounter Active and Recently Administered Medications Times are shown in EST. Scheduled Medication Order 05/27/2023 05/28/2023 05/29/2023 Acetaminophen (Tylenol) tab 650 mg (COMPLETED) 650 mg, Oral, ONCE, On Thu05/29/23 at 1600, For 1 dose, Maximum of 4 grams (4000 mg) per day. 1530 (Given - Provid er: Kathrine Geronimo RN) Acetaminophen (Tylenol) tab 975 mg (COMPLETED) 975 mg, Oral, PREOP, First dose on Thu05/29/23 at 1015, Last dose on Thu05/29/23 at 1015, For 1 dose, Maximum 4 g acetaminophen/day. Avoid in patients with severe hepatic impairment or severe active liver disease. Administer 60 minutes prior to OR., Pre-Op 0946 (Given - Provid er: Sally Irving RN) fentaNYL (PF) inj 50 mcg (COMPLETED) 50 mcg, IV Push, ONCE, On Thu05/29/23 at 1500, For 1 dose, When given IV Push its recommended that the dose be given over 3 to 5 minutes. 1427 (Given - Provid er: Kathrine Geronimo RN) metoclopramide (Reglan) inj 10 mg (COMPLETED) 10 mg, IV Push, ONCE, On Thu05/29/23 at 1600, For 1 dose 1531 (Given - Provid er: Kathrine Geronimo RN) ondansetron (Zofran) inj 4 mg (COMPLETED) 4 mg, IV Push, ONCE, On Thu05/29/23 at 1500, For 1 dose 1422 (Given - Provid er: Kathrine Geronimo RN) oxyCODONE (Oxy IR) tab 5 mg 5 mg, Oral, ONCE, On Thu05/29/23 at 1330, For 1 dose, Post-op 1330 (Due) oxygen GAS Inhalation, OXYGEN, First dose on Thu05/29/23 at 1600, Until Discontinued, Device/Managed by: Low Flow Device, Goal SPO2 (%): Other, Lower-limit SPO2 (%): 88, Upper-limit SPO2 (%): 92, Starting Device: Nasal Cannula, Inital Flow Rate (LPM): 6 LPM for NC; 10 LPM for NRB mask, Lowest Support: Nasal Cannula: Flow 0-6 LPM. Titrate up/down by 1 LPM., Higher Support: Non-Rebreather (NRB) Mask: Minimum of 10 LPM. Titrate to maintain bag inflation., Titration Interval: Q2 minutes and as needed., Notify Provider: Other, Notify Provider [other]: If SpO2 less than 88%, notify provider immediately, If patient is on Room Air in the PACU and SpO2 is greater than 88% but less than 92% place patient on Nasal Cannula If patient is on Room Air in the PACU and SpO2 is less than 88% place patient on NRB Mask 1600 (Due) sodium chloride 0.9 % flush peripheral ravi 3 mL 3 mL, IV Push, QSHIFT, First dose on Thu05/29/23 at 1600, Until Discontinued, Do not flush if lock, PICC, or central line not in place; IV infusing or unable to flush., Pre-Op 1600 (Due) Vancomycin (Vancocin) 1250 mg in NSS 250 mL ivpb (COMPLETED) 1,250 mg, IV Piggyback, ONCALL, 1 dose, Starting on Thu05/29/23 at 1054, Until Discontinued, To be administered within 60 mins of incision time +++ SDS for Tuesday 05/29 +++, Pre-Op 1027 (New Bag - Prov ider: Sally Irving RN)1150 (Stopped - Provider: Arthur Marie CRNA) Continuous Medication Order 05/27/2023 05/28/2023 05/29/2023 NSS infusion Intravenous, at 25 mL/hr, CONTINUOUS, Starting on Thu05/29/23 at 1015, Until Thu05/29/23 at 2009, Pre-Op 1028 (New Bag - Prov ider: Sally Irivng RN)1133 (Continue from Pre-Op - Provider: Arthur Marie CRNA)1226 (Paused - Provider: Susie You CRNA - Comment: Switch to gravity)1227 (Restarted - Provider: Susie You CRNA)1256 (Anes Intra-Op Fluid - Provider: Susie You CRNA) PRN Medication Order 05/27/2023 05/28/2023 05/29/2023 BUPivacaine-EPINEPHrine (Sensorcaine W/ Epi) 0.5% -[id number] inj (CANCELED) ONCE PRN INTRA PROCEDURE, Starting on Thu05/29/23 at 1234, Until Thu05/29/23 at 1252, Intra-Op 1234 (Given - Provid er: Donnie Elena MD - Comment: abdomen) fentaNYL (PF) inj 50 mcg 50 mcg, IV Push, Q5 MIN PRN Pain, Moderate, Pain, Severe, Starting on Thu05/29/23 at 1420, Until Thu05/29/23 at 2009, Administer up to a total of 200mcg. Administer only postop in PACU When given IV Push its recommended that the dose be given over 3 to 5 minutes., PACU hEParin 5,000 Units in sodium chloride IR 0.9 % 500 mL irrigation (CANCELED) ONCE PRN INTRA PROCEDURE, Starting on Thu05/29/23 at 1236, Until Thu05/29/23 at 1252, Intra-Op 1236 (Given - Provid er: Donnie Elena MD - Comment: abdomen) HYDROmorphone (Dilaudid) inj 0.5 mg 0.5 mg, IV Push, Q15 MIN PRN Pain, Severe, Pain, Breakthrough, Starting on Thu05/29/23 at 1420, Until Thu05/29/23 at 2008, Administer only postop in PACU. Hold for respiratory rate less than 12. Administer up to a total of 2mg., PACU ondansetron (Zofran) inj 4 mg 4 mg, IV Push, Q6H PRN Nausea, Starting on Thu05/29/23 at 1420, Until Thu05/29/23 at 2008, For 1 day, Administer only during the first hour post-op in PACU., PACU documented in this encounter Advance Directives Latest [...] the patient have Health Care Power of Sub Prior? No Full Code 09/28/2018 11:48 PM 10/03/2018 4:20 PM This order reflects the patients wishes and were consensually agreed upon. Full Code 04/26/2016 12:06 PM 04/29/2016 11:05 PM Th is order reflects the patients wishes and were consensually agreed upon. Care Teams Skirt Maker Relationship Specialty Start Date End Date Robert Garza PA-C [address] [place] [address] [place] [address] PCP - General Physician Institute Scientist 06/18/22 documented as of this encounter
--- OUTSIDE RECORDS SUMMARY | 2023-07-25 11:32 | External Medical Summary ---
Demographics Address [address] [place] [address] Phone Unavailable Phone Unavailable Preferred Language Unknown Marital Status Unknown Hoahaoism Affiliation Unknown Race Unknown Ethnic Group Unknown Author Name Unknown Address Unknown Organization K01[place] [place] [address] [facility] [id number] Laboratory Report Ordering Provider Test Date Status EDMUNDO CANNON 06/30/2023 15:48:22 Final Observation Date Value Abnormality Reference (Units ) Status SARS Coronavirus 2 06/30/2023 15:48:22 Negative N egative Final No SARS-CoV2 Coronavirus RNA detected by PCR (amplified probe).
This automated test was developed and its performance characteristics determined by [facility]. It has not been cleared or approved by the U.S. Food and Drug Administration (FDA). FDA does not require this test to go thru premarket FDA review. This test is used for clinical purposes. It should not be regarded as investigational or for research. This laboratory is certified under the Clinical Laboratory Improvement Amendments (CLIA) as qualified to perform high complexity clinical laboratory testing.

This test is a nucleic acid amplification test (NAAT), a reverse transcriptase polymerase chain reaction (RT-PCR) test, or a Centers for Disease Control-acceptable equivalent. The test is performed in a high complexity Clinical Laboratory Improvement Amendments-(CLIA) certified laboratory. The test is acceptable for SARS-CoV-2 diagnosis, surveillance, and travel within the [place] and to most countries. Please check with local testing authorities about requirements before travel.

The validation of bronchial specimens, tracheal aspirates, and sputum for this assay was developed and performance characteristics determined by [facility]. The validation of alternate specimen types has not been cleared or approved by the U.S. Food and Drug Administration (FDA). It has been determined that such clearance or approval is not necessary. Influenza virus A RNA [Prese nce] in Specimen by [facility] with probe detection 06/30/2023 15:48:22 Negative Negative Final No Influenza A RNA detected by PCR (amplified probe) Influenza virus B RNA [Prese nce] in Specimen by [facility] with probe detection 06/30/2023 15:48:22 Negative Negative Final No Influenza B RNA detected by PCR (amplified probe) Respiratory syncytial virus RNA [Identifier] in Specimen by [facility] with probe detection 06/30/2023 15:48:22 Negative Negative Final No Respiratory Syncytial Vir us RNA detected by PCR (amplified probe) Performing Location [facility]ATORY [place] [address] [facility] [address]
--- OUTSIDE RECORDS SUMMARY | 2023-07-25 11:32 | External Medical Summary | Summary of Care ---
Author Name Unknown Organization [facility] Address [address] [place] [address] Phone [phone] Care Team Providers Care Cloth Booker Name Role Phone Robert Garza PA-C Primary Care Provider [phone] Reason for Visit * Reason Comments case management CKD CM goal review Encounter Details Date Type Department Care Team (Late st Contact Info) Description 05/19/2023 Mathematics Department Chair Care Coordination [address], [place] [id number] Miri Herzog, ALEX [address] [place] [address] Chronic kidney disease, stage 5 (HCC)*; CKD, patient preferred treatment modality peritoneal dialysis Allergies Active Allergy Reactions Criticality Noted Date Comments Amoxicillin-Pot Clavulanate Hives 04/26/2016 Pollen Other (Please comment) Medium 04/12/2012 Seasonal allergies: Itchy watery eyes, sneezes. documented as of this encounter (statuses as of 05/19/2023) Medications Medication Sig Dispensed Refills Start Date End Date Status Carvedilol 12.5 MG Oral Tablet (Coreg) TAKE 1 TABLET BY MOUTH 2 TIMES A DAY WITH MORNING AND EVENING MEALS. 60 Tablet 11 05/09/2022 05/26/2023 Active Sodium Bicarbonate 650 MG Oral TabletIndications: CKD (chronic kidney disease) stage 5, GFR less than 15 ml/min (HCC),Metabolic acidosis Take 1 Tablet by mouth in the morning and 1 Tablet before bedtime. 180 Tablet 2 08/29/2022 Active Vitamin D (Ergocalciferol) 14248 UNIT Oral CapsuleIndications :Vitamin D deficiency Take [...] before bedtime. 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 Verified patient name/. Advised patient that call is being recorded for quality and training purposes. Assessment: Pt. noted the following: CKD CM goal review Spoke with pt, she reports she feels better, she had COVID last week. Pt denies fever. Occasional cough, non productive. Said she does have some clear drainage when she blows her nose. Reports that she has noticed some SOB that started when she was sick, said that "carrying the kids"makes her SOB. Denies edema. No medication changes. Pt has appt with PCP tomorrow. She rescheduled her PD catheter placement until 05/29/23 d/t COVID. Reminded her to touch base with her PD nurse and make her aware of surgery date. Current wt 198#, BP 135/80. Pt able to teach back red flags. Plan; f/u in one week with phone call/progress note.. Did you receive an alert for an annual wellness visit? No Is this call for a hospital, half-way or rehab facility discharge to home? No Medication Reconciliation: Medication Reconciliation completed: no changes Review of Current goals: Discussed the following patient-centered CM goals with the patient during this discussion: -CKD: Patient will maintain kidney function as long as possible -Status: On Track pt denies s/s of uremia. . -ESRD: Patient will be prepared for dialysis initiation -Status: On Track pt rescheduled PD catheter placement for 05/29/23. -ESRD: Promote minimal renal risk for patient -Status: On Track Pt able to teach back red flags. COPD Patient: No CHF Patient: NO CM Plan: Reviewed 3 Red Flags with patient. Advised to call CM with any of the following: Red Flag 1: Edema,Red Flag 2: metallic taste/n/v, or Red Flag 3: SOB Remote Patient Monitoring: At this time, RPM not offered/considered for patient due to pt has own equipment. Plan for Future Contacts: Plan to follow up within 1 week to check progress on the following goals/needs s/s of uremia. Planned contacts from the following parties will occur this week: PCP office visit as additional contacts per workflow. Advancement/Closure Plan: Keep patient at current Tier with reassessment per workflow. Patient provided CM contact information and encouraged to call with any changes in condition. SNP Member? No PCP Notified of enrollment in CM/HM program: Yes Is Provider in agreement with POC? Yes Miri Herzog RN Kidney Transitions Specialist CKD Mathematics Department Chair documented in this encounter Plan of Treatment Upcoming Encounters Date Type Department Care Team ([facility] Contact Info) Description 05/20/2023 6:20 PM EDT Office Visit [facility] [address] [place] [address] Robert Garza PA-C [address] [place] [address] 05/29/2023 10:54 AM EST Hospital Encounter OR [facility], Operating Room, [facility] - 4th Floor [address] [place] [address] Donnie Elena MD [address] [place] [address] 05/29/2023 10:54 AM EST - 05/29/2023 12:38 PM EST Surgery OR [facility], Operating Room, [facility] - 4th Floor [address] [place] [address] Donnie Elena MD [address] [place] [address] LAPAROSCOPIC INSERTION INTRAPERITONEAL CANNULA OR CATHETER 06/01/2023 10:00 AM EST Scheduled Telephone General Surgery Baldo Mojica [address] [place] [address] Baldo Nurse Gen Surg Cecistewart Sultana, RN [address] [place] [address] 06/01/2023 11:20 AM EST Office Visit Nephrology [address] [place] [address] Dennis Sanford MD [address] [facility], [place] [id number] 07/29/2023 8:00 AM EST Telemedicine Transplant Surgery 3rd Floor [facility] [place] Amy Kohler [address] [facility] [place] [address] Coordinator, Transplant Nurse [address] [facility] [place] [address] 07/29/2023 11:30 AM EST Office Visit Transplant Clinic, [place] [address] [place], [place] [phone] Alexei Ross, DNP [address] [place] [address] Stephanie Milton, CLINICAL INFORMATICS STRATEGIST [address] [place] [address] 07/29/2023 12:40 PM EST Laboratory Outpatient Laboratory, [place] [address] [place] [id number] [place], Lab B[address] [place] [address] Scheduled Procedures Name Priority Associated Diagnoses Date/Ti me LAPAROSCOPIC INSERTION INTRAPERITONEAL CANNULA OR CATHETER FSGS (focal segmental glomerulosclerosis) with nephrosis 05/29/2023 10:54 AM EST Health Maintenance Due Date Last Done Comments Hepatitis B (1 of 3 - 3-dose series) 1996 COVID-19 Vaccine (#1) 1996 Pneumococcal Vaccine: Pediatrics (0 to 5 Years) and At-Risk Patients (6 to 64 Years) (1 - PCV) 01/03/2002 Depression Screening 08/02/2020 08/02/2019 Influenza Vaccine (FLU shot) (#1) 2023 07/21/2019 TSH 11/15/2023 11/14/2022, 12/0 11/2021, 05/08/2022, Additional history exists Pap Smear [...] as of this encounter Visit Diagnoses Diagnosis Chronic kidney disease, stage 5 (HCC)- Primary CKD, patient preferred treatment modality peritoneal dialysis 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 No Code Status History Code Status Date Activated Date Inactivated Comments Full Code 09/28/2018 11:48 PM 10/03/2018 4:20 PM This order reflects the patients wishes and were consensually agreed upon. Full Code 04/26/2016 12:06 PM 04/29/2016 11:05 PM Th is order reflects the patients wishes and were consensually agreed upon. Care Teams Cloth Booker Relationship Specialty Start Date End Date Robert Garza PA-C [address] [place] [phone] PCP - General Physician Traffic Ii Manager 06/18/22 documented as of this encounter
--- OUTSIDE RECORDS SUMMARY | 2023-07-25 11:32 | External Medical Summary ---
Author Name Unknown Address Unknown Organization K01[place] [place] [address] [place] [address] Laboratory Report Ordering Provider Test Date Status RUBEN JEAN 06/02/2023 13:17:05 Final Deficient: <20 ng/mL
Ins ufficient: 20-29 ng/mL
Recommended/Optimum:30-50 ng/mL

Vitamin D intoxication is rare. If suspicious of Vitamin D toxicity, evaluation of serum Calcium and PTH is recommended. Observation Date Value Abnormality Reference (Units ) Status 25-OH Vitamin D total 06/02/2023 13:17:05 27 >19 (ng/mL) Final Performing Location [facility] - [address] [place] [address]
--- OUTSIDE RECORDS SUMMARY | 2023-07-25 11:32 | External Medical Summary | Summary of Care ---
Demographics Address [address] [place] [address] Mobile Phone Email Address Preferred Language Yakut Marital Status Unknown Yazidism Affiliation Unknown Race White Ethnic Group Not or Lati no Author Name Unknown Organization [facility] Address [address] [place] [address] Phone [phone] Support Name Relationship Address Phone Agnieszka Lane Mother Unknown Yudelka Lane Grandparent Unknown Bryce Madison Emergency Contact [address] [place] [address] Care Team Providers Care [employer] English Teacher Name Role Phone Robert Garza PA-C Primary Care Provider [phone] Reason for Visit * Reason Comments Follow Up 4 month returnXenia colon was sick last week and has been having bilateral ear pain ever since, more so the left ear. Encounter Details Date Type Department Care Team ([facility] Contact Info) Description 05/20/2023 6:20 PM EDT Office Visit [facility] [address] [place] [address] Robert Garza PA-C [address] [place] [id number] Chronic kidney disease, stage 5 (HCC)*; FSGS (focal segmental glomerulosclerosis) with nephrosis; HTN, goal below 130/80; Acquired hypothyroidism; Anxiety and depression Allergies Active Allergy Reactions Criticality Noted Date Comments Amoxicillin-Pot Clavulanate Hives 04/26/2016 Pollen Other (Please comment) Medium 04/12/2012 Seasonal allergies: Itchy watery eyes, sneezes. documented as of this encounter (statuses as of 05/21/2023) Medications Medication Sig Dispensed Refills Start Date [...] Tablet 2 08/29/2022 Active Vitamin D (Ergocalciferol) 94020 UNIT Oral CapsuleIndications :Vitamin D deficiency Take [...] as of this encounter (statuses as of 05/21/2023) Active Problems Problem Noted Date Diagnosed Date Anxiety and depression 05/21/2023 Chronic kidney disease, stage 5 09/29/2022 Overview: Per CKD protocol Abnormal uterine bleeding (AUB) 07/29/2022 Encounter for gynecological examination with abnormal finding 07/29/2022 Acquired hypothyroidism 05/08/2022 HTN, goal below 130/80 08/03/2019 FSGS (focal segmental glomerulosclerosis) with n ephrosis 08/03/2019 Nephrotic range proteinuria 08/03/2019 Nephrotic syndrome 11/13/2017 Overview: See 11/2015 note documented as of this encounter (statuses as of 05/21/2023) Resolved Problems Problem Noted Date Diagnosed Date [...] as of this encounter (statuses as of 05/21/2023) Immunizations Name Administration Dates Next Due SEASONAL [...] Sign Reading Time Taken Comments Blood Pressure 142/100 05/20/2023 6:20 PM EDT Pulse 68 05/20/2023 6:20 PM EDT Temperature 36.4 C (97.5 F) 05/20/2023 6:20 PM ED T Respiratory Rate 16 05/20/2023 6:20 PM EDT Oxygen Saturation 99% 05/20/2023 6:20 PM EDT Inhaled Oxygen Concentration - - Weight 88.5 kg (195 lb 3.2 oz) 05/20/2023 6:20 P M EDT Height - - Body Mass Index 33.51 05/06/2023 9:47 AM EDT documented in this encounter Functional Status Functional [...] as of this encounter Progress Notes * Robert Garza PA-C - 05/20/2023 6:48 PM EDT Images from the original note were not included. History of Present Illness Radha Lane is a 28 year old female that presents for Follow Up (4 month return/Patient was sick last week and has been having bilateral ear pain ever since, more so the left ear. ) Last appointment 01/14/2023 (in office). Recovered from recent COVID-19 infection, just some lingering ear discomfort L>R. CKD5 following closely with Nephrology, PD catheter insertion planned 05/29/23. Creatinine Results: Lab Results Component Value Date/Time CREATININE - [facility] 11.4 (H) 05/08/2023 09:10 AM CREATININE - [facility] 10.7 (H) 04/28/2023 08:33 AM CREATININE - [facility] 8.5 (H) 03/20/2023 08:39 AM CREATININE - [facility] 1.2 (H) 11/02/2019 09:09 AM Home BP readings consistently <130/80. Mood stable on Zoloft, feels dose is appropriate. TSH normalized on levothyroxine. TSH Results: Lab Results Component Value Date/Time TSH - [facility] 3.12 11/14/2022 12:29 PM TSH - [facility] 2.92 06/23/2022 04:00 PM TSH - [facility] 4.95 (H) 05/08/2022 02:30 PM TSH - [facility] 3.89 07/05/2019 10:45 AM TSH - [facility] 1.95 09/22/2018 02:07 PM TSH - [facility] 4.29 (H) 08/23/2018 02:18 PM Medications: Ferrous Sulfate 325 (65 Fe) MG Oral Tablet (FeroSul) Calcium Acetate (Phos Binder) 667 MG Oral Capsule (Phoslo) Levothyroxine Sodium 50 MCG Oral Tablet (Levoxyl) Vitamin D (Ergocalciferol) 68210 UNIT Oral Capsule Sertraline HCl 50 MG Oral Tablet (Zoloft) Sodium Bicarbonate 650 MG Oral Tablet Carvedilol 12.5 MG Oral Tablet (Coreg) Immunizations declined. Physical Exam Vitals: 05/20/23 1820 Temp: 36.4 C (97.5 F) Pulse: 68 Resp: 16 SpO2: 99% BP: 142/100 BP Readings from Last 3 Encounters: 05/20/23 142/100 05/05/23 189/99 04/29/23 155/109 Wt Readings from Last 3 Encounters: 05/20/23 88.5 kg (195 lb 3.2 oz) 05/05/23 89.8 kg (198 lb) 04/29/23 90.7 kg (200 lb) Physical Exam Vitals and nursing note reviewed. Constitutional: General: She is not in acute distress. Appearance: Normal appearance. HENT: Head: Normocephalic and atraumatic. Right Ear: Tympanic membrane, ear canal and external ear normal. Left Ear: Tympanic membrane, ear canal and external ear normal. Nose: Nose normal. Mouth/Throat: Mouth: Mucous membranes are moist. Pharynx: Oropharynx is clear. Cardiovascular: Rate and Rhythm: Normal rate and regular rhythm. Heart sounds: Normal heart sounds. Pulmonary: Effort: Pulmonary effort is normal. Breath sounds: Normal breath sounds. Abdominal: General: Bowel sounds are normal. Palpations: Abdomen is soft. Tenderness: There is no abdominal tenderness. There is no guarding. Musculoskeletal: General: No swelling. Cervical back: Neck supple. Lymphadenopathy: Cervical: No cervical adenopathy. Neurological: Mental Status: She is alert and oriented to person, place, and time. Psychiatric: Mood and Affect: Mood normal. Behavior: Behavior normal. Thought Content: Thought content normal. I have reviewed the following results: TSH Results: Lab Results Component Value Date/Time TSH - [facility] 3.12 11/14/2022 12:29 PM TSH - [facility] 2.92 06/23/2022 04:00 PM TSH - [facility] 4.95 (H) 05/08/2022 02:30 PM TSH - [facility] 3.89 07/05/2019 10:45 AM TSH - [facility] 1.95 09/22/2018 02:07 PM TSH - [facility] 4.29 (H) 08/23/2018 02:18 PM Assessment and Plan Chronic kidney disease, stage 5 (HCC) - 25-HYDROXY VITAMIN D; Future FSGS (focal segmental glomerulosclerosis) with nephrosis HTN, goal below 130/80 Acquired hypothyroidism - TSH WITH FREE T4 IF INDICATED; Future Anxiety and depression Wrap-Up Follow Up: Return in about 4 months (around 09/18/2023). Time: I spent a total of 20-29 minutes (exact time 25 mins) on the date of service in preparation, delivery, and documentation of the care provided to Radha Lane excluding any time spent in the performance of separately billed services. documented in this encounter Nursing Notes * Bonny Martin LPN - 05/20/2023 6:20 PM EDT The patient has been properly identified by confirmation of name and date of . Chief Complaint Patient presents with Follow Up 4 month return Patient was sick last week and has been having bilateral ear pain ever since, more so the left ear. documented in this encounter Plan of Treatment Upcoming Encounters Date Type Department Care Team (Late st Contact Info) Description 05/29/2023 10:54 AM EST Hospital Encounter OR [facility], Operating Room, [facility] - 4th Floor [address] [place] [address] Donnie Elena MD [facility] [address] [place] [address] 05/29/2023 10:54 AM EST - 05/29/2023 12:38 PM EST Surgery OR [facility], Operating Room, [facility] - [facility] Floor [address] [place] [address] Donnie Elena MD [address] [facility] [address] [place] [address] LAPAROSCOPIC INSERTION INTRAPERITONEAL CANNULA OR CATHETER 06/01/2023 10:00 AM EST Scheduled Telephone General Surgery Baldo Mojica [address] [place] [address] Baldo Nurse Gen Surg Ceci Sultana, ALEX [address] [place] [address] 06/01/2023 11:20 AM EST Office Visit Nephrology [address] [place] [address] Dennis Sanford MD [address] [facility] [address] 07/29/2023 8:00 AM EST Telemedicine Transplant Surgery 3rd Floor Amy SUERO [address] [place] [address] Coordinator, Transplant Nurse [address] [place] [address] 07/29/2023 11:30 AM EST Office Visit Transplant Clinic, [place] [address] [place] [address] Alexei Ross, DNP [address] [place] [address] Stephanie Milton, STENOGRAPHER SECRETARY [address], [place] [id number] 07/29/2023 12:40 PM EST Laboratory Outpatient Laboratory, [place] [address] [place] [address] [place], Lab B1a [address], [place] [id number] 09/18/2023 12:00 PM EST Office Visit [address] [address] Robert Garza PA-C [address] [place] [phone] Scheduled Orders Name Type Priority Associated Diagnoses Orde r Schedule TSH WITH FREE T4 IF INDICATED Lab Routine Acquired hypothyroidism Expected: 05/20/2023 (Approximate), Expires: 05/19/2024 25-HYDROXY VITAMIN D Lab Routine Chronic kidney disease, stage 5 (HCC) Expected: 05/20/2023 (Approximate), Expires: 05/19/2024 Scheduled Procedures Name Priority Associated Diagnoses Date/Ti [...] shot) (#1) 2023 07/21/2019 TSH 11/15/2023 11/14/2022, 12/11/2021, 05/08/2022, Additional history exists Pap Smear 07/29/2025 [...] Chronic kidney disease, stage 5 (HCC)- Primary 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 No Code Status History Code Status Date Activated Date Inactivated Comments Full Code 09/28/2018 11:48 PM 10/03/2018 4:20 PM This order reflects the patients wishes and were consensually agreed upon. Full Code 04/26/2016 12:06 PM 04/29/2016 11:05 PM Th is order reflects the patients wishes and were consensually agreed upon. Care Teams Middle School English Teacher Relationship Specialty Start Date End Date Robert Garza PA-C [address] [place] [id number] PCP - General Physician Spanish Professor 06/18/22 documented as of this encounter
--- OUTSIDE RECORDS SUMMARY | 2023-07-25 11:32 | External Medical Summary ---
Demographics Address [address] [place] [address] Phone Unavailable Phone Unavailable Preferred Language Unknown Marital Status Unknown Restoration Affiliation Unknown Race Unknown Ethnic Group Unknown Author Name Unknown Address Unknown Organization : Laboratory Report Ordering Provider Test Date Status WILBERT WRIGHT 06/19/2023 09:15:00 Final Observation Date Value Abnormality Reference (Units ) Status REFERENCE LAB SCANNED REPORT 06/19/2023 09:15:00 See Scanned Report Final Performing Location
--- OUTSIDE RECORDS SUMMARY | 2023-07-25 11:32 | External Medical Summary | Summary of Care ---
Demographics Address [address] [place] [address] Mobile Phone Email Address Preferred Language Nepali Marital Status Unknown Zoroastrianism Affiliation Unknown Race White Ethnic Group Not or Lati no Author Name Unknown Organization [facility] Address [address] [place] [address] Phone [phone] Support Name Relationship Address Phone Agnieszka Lane Mother Unknown Yudelka Lane Grandparent Unknown Bryce Madison Emergency Contact [address] [place] [address] Care Team Providers Care Industrial Controls Technician Name Role Phone Robert Garza PA-C Primary Care Provider [phone] Reason for Visit * Reason Comments Outpatient Testing Encounter Details Date Type Department Care Team (Late st Contact Info) Description 06/02/2023 1:20 PM EST Laboratory Laboratory Patient Service [address] [phone] [address] Pre-transplant evaluation for ESRD (end stage renal disease); Acquired hypothyroidism; Chronic kidney disease, stage 5 ([facility]) Allergies Active Allergy Reactions Criticality Noted Date Comments Amoxicillin-Pot Clavulanate Hives 04/26/2016 Pollen Other (Please comment) Medium 04/12/2012 Seasonal allergies: Itchy watery eyes, sneezes. documented as of this encounter (statuses as of 06/02/2023) Medications Medication Sig Dispensed Refills Start Date End Date Status Sodium Bicarbonate 650 MG Oral TabletIndications: CKD (chronic kidney disease) stage 5, GFR less than 15 ml/min ([facility]),Metabolic acidosis Take 1 Tablet by mouth in the morning and 1 Tablet before bedtime. 180 Tablet 2 08/29/2022 Active Vitamin D (Ergocalciferol) 16109 UNIT Oral CapsuleIndications :Vitamin D deficiency Take [...] Next Due Pneumococcal Conjugate Vacci ne, 20-valent ([id number]) 05/29/2023(Deferred: Patient Refused) SEASONAL INFLUENZA, PF, 6 [...] AM EST Telemedicine Transplant Surgery 3rd Floor [facility], Amy Kohler [address] [facility] [place] [address] Coordinator, Transplant Nurse [address] [facility] [place] [address] 07/29/2023 11:30 AM EST Office Visit Transplant Clinic, [place] [address] [place] [address] Alexei Ross, [facility] [address] [place] [address] Stephanie Milton, LEAD BI DEVELOPER [address] [place] [address] 07/29/2023 12:40 PM EST Laboratory Outpatient Laboratory, [place] [address] [place] [address] [place], Lab B1a [address] [place] [address] 09/18/2023 12:00 PM EST Office Visit [address] [phone] Robert Garza PA-C [address] [place] [phone] Pending Results Name Type Priority Associated Diagnoses [...] the patient have Health Care Power of First Sampler? No Full Code 09/28/2018 11:48 PM 10/03/2018 4:20 PM This order reflects the patients wishes and were consensually agreed upon. Full Code 04/26/2016 12:06 PM 04/29/2016 11:05 PM Th is order reflects the patients wishes and were consensually agreed upon. Care Teams Industrial Controls Technician Relationship Specialty Start Date End Date Robert Garza PA-C [address] [place] [id number] PCP - General Physician Integrated Marketing Intern 06/18/22 documented as of this encounter
--- OUTSIDE RECORDS SUMMARY | 2023-07-25 11:32 | External Medical Summary | Summary of Care ---
Author Name Unknown Organization [facility] Address [address] [place] [address] Phone [phone] Support Name Relationship Address Phone Agnieszka Lane Mother Unknown Yudelka Lane Grandparent Unknown Bryce Madison Emergency Contact [address] [place] [address] Care Team Providers Care Poiser Name Role Phone Robert Garza PA-C Primary Care Provider [phone] [phone] Reason for Visit * Reason Comments Chronic Kidney Disease (CKD) Encounter Details Date Type Department Care Team ([facility] Contact Info) Description 06/01/2023 11:20 AM EST Office Visit Nephrology [address] [place] [phone] Dennis Sanford MD [address] [place] [address] Chronic kidney disease, stage 5 (HCC)*; FSGS (focal segmental glomerulosclerosis) with nephrosis Allergies Active Allergy Reactions Criticality Noted Date Comments Amoxicillin-Pot Clavulanate Hives 04/26/2016 Pollen Other (Please comment) Medium 04/12/2012 Seasonal allergies: Itchy watery eyes, sneezes. documented as of this encounter (statuses as of 06/01/2023) Medications Medication Sig Dispensed Refills Start Date End Date Status Carvedilol 12.5 MG Oral Tablet (Coreg) TAKE 1 TABLET BY MOUTH 2 TIMES A DAY WITH MORNING AND EVENING MEALS. 60 Tablet 11 05/09/2022 06/01/2023 Active Sodium Bicarbonate 650 MG Oral TabletIndications: CKD (chronic kidney disease) stage 5, GFR less than 15 ml/min (HCC),Metabolic acidosis Take 1 Tablet by mouth in the morning and 1 Tablet before bedtime. 180 Tablet 2 08/29/2022 Active Vitamin D (Ergocalciferol) 92193 UNIT Oral CapsuleIndications :Vitamin D deficiency Take [...] as of this encounter (statuses as of 06/01/2023) Active Problems Problem Noted Date Diagnosed Date [...] as of this encounter (statuses as of 06/01/2023) Resolved Problems Problem Noted Date Diagnosed Date [...] as of this encounter (statuses as of 06/01/2023) Immunizations Name Administration Dates Next Due Pneumococcal Conjugate Vacci ne, 20-valent ([id number]) 05/29/2023(Deferred: Patient Refused) SEASONAL INFLUENZA, PF, 6 [...] Sign Reading Time Taken Comments Blood Pressure 158/100 06/01/2023 11:14 AM EST Pulse 75 06/01/2023 11:14 AM EST Temperature 36.3 C (97.3 F) 06/01/2023 11:[address] Respiratory Rate 10 06/01/2023 11:14 AM EST Oxygen Saturation 98% 06/01/2023 11:14 AM EST Inhaled Oxygen Concentration - - Weight 87.2 kg (192 lb 3.2 oz) 06/01/2023 11:14 AM EST Height - - Body Mass Index 32.99 05/29/2023 9:41 AM EST documented in this [...] as of this encounter Progress Notes * Dennis Sanford MD - 06/01/2023 11:21 AM EST Chief Complaint Patient presents with Chronic Kidney Disease (CKD) SUBJECTIVE: HPI:Patient is a 28 year old female with notable for history of biopsy-proven primary FSGS, nephrotic range proteinuria,CKD stage 5, HTN hypothyroidism called today for CKD follow up. Regarding her primary FSGS-patient is been having nephrotic range proteinuria since 2016 (at that time she had her 1st child) and then lost to follow-up and with her 2nd she was found to have persistent nephrotic range proteinuria and underwent renal biopsy in 02/2019 which showed primary FSGS NOS variant, ATN, interstitial fibrosis and tubular atrophy 20-25%. Initially on prednisone (unknown date ) which was tapered around March 2019 and she was started on cyclosporine since February 2019. She has been taking it and then around February 2022 she stopped taking due to unclear reasons. Then the kidney rapidly failed. Since last visit ----She decided to do PD and also has multiple potential donors. Finally hadthe PD cath placement 05/29/2023. Starting PD training on 06/03 as urgent start. Patient presents today and reports she is feeling well despite very high creat. Denies any inc in fatigue- cares for 3small children . Good appetite, no pruritus, normal sleep pattern. Is now listed on transplant listand gets monthly labs. No edema despite No diuretics. alb still normal. No edema even though no diuretics HISTORY: Current Outpatient Medications Medication Sig Dispense Refill Carvedilol 12.5 MG Oral Tablet (Coreg) TAKE 1 TABLET BY MOUTH 2 TIMES A DAY WITH MORNING AND EVENING MEALS. 60 Tablet 11 Sodium Bicarbonate 650 MG Oral Tablet Take 1 Tablet by mouth in the morning and 1 Tablet before bedtime. 180 Tablet 2 Vitamin D (Ergocalciferol) 97601 UNIT Oral Capsule Take 50,000 Units by [...] taking: Reported on 06/01/2023) 5 Tablet 0 No current facility-administered medications for this visit. Review of patient's allergies indicates: Allergen Reactions Environmental [Pollen] Other (Please comment) Seasonal allergies: Itchy watery eyes, sneezes. Augmentin [Amoxicillin-Pot Clavulanate] Hives Past Medical History: Diagnosis Date Anxiety and depression Chronic kidney disease (CKD), stage II (mild) FSGS (focal segmental glomerulosclerosis) 2015 Hypothyroidism Kidney disease, chronic, stage IV (GFR 15-29 ml/min) (HCC) 06/20/2021 Nephrotic syndrome 2015 Surveillance of previously prescribed contraceptive method 04/25/2009 Implanon left arm 04/19/09, removal due 04/19/2012 Viral warts, unspecified 02/13/2009 condyloma Past Surgical History: Procedure Laterality Date DELIVERY ONLY W/ N/A 09/30/2018 DELIVERY AND CARE performed by Mio Fuentes MD at [facility] INSERT CONTRACEPTIVE CAPSULES 04/19/09 Implanon IR BIOPSY 06/04/2022 RENAL BIOPSY, PERCUTANEOUS (TROCAR/NEEDLE) N/A 02/23/2019 RENAL BIOPSY PERCUTANEOUS [place] [facility] [place] [facility] Family History Problem Relation Age of Onset No Past Hx Mother Other (scoliosis) Father Other (ing hernias) Father No Past Hx Sister No Past Hx Brother Other (Polydactyly) Brother No Known Problems Brother No Known Problems Son No Known Problems Son No Known Problems Son No Known Problems Daughter Social History Socioeconomic History Marital status: Single Spouse name: bryce 25 yo Number of children: 3 Years of education: 12 Highest education level: Not on file Occupational History Occupation: homemaker Tobacco Use Smoking status: Never Smokeless tobacco: Never Vaping Use Vaping Use: Never used Substance and Sexual Activity Alcohol use: No Drug use: No Sexual activity: Yes Partners: Male Comment: In a relationship for 3-4 yrs Other Topics Concern Not on file Social History Narrative Not on file Social Determinants of Health Financial Resource Strain: Not on file Food Insecurity: No Food Insecurity (07/21/2019) Hunger Vital Sign Worried About Running Out of Food in the Last Year: Never true Ran Out of Food in the Last Year: Never true Transportation Needs: Not on file Physical Activity: Not on file Stress: Not on file Social Connections: Not on file Intimate Partner Violence: Not on file Housing Stability: Not on file Ambulation: Withot assisted device REVIEW OF SYSTEMS General: No fatigue, No change in weight Head: No significant headache Respiratory: No cough,No wheezing, No shortness of breath Cardiovascular:No chest pain, No palpitations, and No syncope Gastrointestinal: No nausea, vomiting, diarrhea No blood in stools No abdominal pain Urinary: No dysuira, No hematuria. No flank pain Musculoskeletal: No muscle/joint pains , No edema Skin: No itching All other systems were reviewed and were negative. OBJECTIVE: BP 158/100 (BP Site: Right Arm, BP Position: Sitting, BP Cuff Size: Regular) | Pulse 75 | Temp 36.3C (97.3 F) (Tympanic) | Resp 10 | Wt 87.2 kg (192 lb 3.2 oz) | SpO2 98% | BMI 32.99 kg/m | BSA 1.98 m Wt Readings from Last 1 Encounters: 06/01/23 87.2 kg (192 lb 3.2 oz) General appearance: alert, no apparent distress. HEAD: Normocephalic, No masses, lesions, tenderness Respiratory: clear to auscultation, no rhonchi and no wheezes Heart: regular rate and regular rhythm Abdomen: abdomen soft, non-tender and no CVA tenderness EXTREMITIES: no edema, Skin: skin color, texture, turgor are normal NEURO: alert & oriented x 3 with fluent speech, no focal motor/sensory deficits No tremor Patient is a reliable historian of events Last 4 BP Readings: BP Readings from Last 4 Encounters: 06/01/23 158/100 05/29/23 134/86 05/20/23 142/100 05/05/23 189/99 Last 3 Weights: Wt Readings from Last 3 Encounters: 06/01/23 87.2 kg (192 lb 3.2 oz) 05/29/23 89.8 kg (198 lb) 05/20/23 88.5 kg (195 lb 3.2 oz) Estimated body mass index is 32.99 kg/m as calculated from the following: Height as of 05/29/23: 1.626 m (5' 4"). Weight as of this encounter: 87.2 kg (192 lb 3.2 oz). LABS: Latest Reference Range & Units 06/20/21 15:12 05/08/22 16:19 05/09/22 01:06 05/09/22 04:39 05/14/22 11:02 06/23/22 16:00 07/22/22 13:43 Sodium 135 - 146 mmol/L 140 135 137 137 136 137 135 Potassium 3.5 - 5.1 mmol/L 4.6 4.6 4.7 4.5 4.7 5.0 5.0 Chloride 98 - 107 mmol/L 107 101 104 105 102 107 104 CO2 22 - 32 mmol/L 19 (L) 17 (L) 19 (L) 19 (L) 22 20 (L) 19 (L) BUN 6 - 20 mg/dL 25 (H) 36 (H) 35 (H) 35 (H) 45 (H) 42 (H) 60 (H) Creatinine 0.5 - 1.0 mg/dL 2.5 (H) 5.0 (H) 4.9 (H) 4.9 (H) 5.1 (H) 4.6 (H) 5.0 (H) Estimated Glomerular Filtration Rate >=60 mL/min 26 (L) 12 (L) 12 (L) 12 (L) 12 (L) 11 (L) 13 (L) 12 (L) Anion Gap 7 - 15 mmol/L 14 17 (H) 14 13 12 10 12 (L): Data is abnormally low (H): Data is abnormally high Latest Reference Range & Units 07/05/19 10:45 11/02/19 09:09 05/03/21 09:21 06/20/21 15:12 05/08/22 14:29 07/22/22 13:43 Albumin / Creatinine Ratio, Urine <30 mg/g Creat 3,822 (H) ALBUMIN / CREATININE RATIO, URINE Rpt ! Protein/ Creatinine Ratio, Urine <150 mg/g 5,440 (H) 5,753 (H) 4,154 (H) PROTEIN/CREAT RATIO <150 mg/g 3,405 (H) 5,143 (H) (H): Data is abnormally high !: Data is abnormal Rpt: View report in Results Review for more information IMAGING: Exam: CT Abdomen And Pelvis Without Contrast Exam date and time: 07/22/2022 2:44 PM Age: 27 years old Clinical indication: Encounter for other preprocedural examination; Additional info: Pre transplant evaluation TECHNIQUE: Imaging protocol: Computed tomography of the abdomen and pelvis without contrast. Radiation optimization: All CT scans at this facility use at least one of these dose optimization techniques: automated exposure control; mA and/or kV adjustment per patient size (includes targeted exams where dose is matched to clinical indication); or iterative reconstruction. COMPARISON: CT Specials^ABD INTERVENTION (Adult) 06/04/2022 9:54 AM FINDINGS: Liver: Normal. No mass. Gallbladder and bile ducts: Normal. No calcified stones. No ductal dilation. Pancreas: Normal. No ductal dilation. Spleen: Normal. No splenomegaly. Adrenal glands: Normal. No mass. Kidneys and ureters: The [place] kidneys are small and atrophic. Stomach and bowel: Unremarkable. No obstruction. No mucosal thickening. Appendix: The appendix is seen and is normal in appearance. Intraperitoneal space: Unremarkable. No free air. No significant fluid collection. Vasculature: Unremarkable. No abdominal aortic aneurysm. Lymph nodes: Unremarkable. No enlarged lymph nodes. Urinary bladder: Unremarkable as visualized. Reproductive: Unremarkable as visualized. Bones/joints: Unremarkable. No acute fracture. Soft tissues: Unremarkable. IMPRESSION IMPRESSION: Bilateral atrophic kidneys. No significant vascular disease noted. ASSESSMENT/PLAN: Chronic kidney disease, stage 5 (HCC) (Primary) FSGS (focal segmental glomerulosclerosis) with nephrosis Gradually worsening renal function with proteinuria> unfortunately now progressed to CKD 5 GFR now 5. medication non compliance- previously on prednisone and cyclosporine, stopped by herself, and lost to follow up with nephrology. Kidney biopsy 06/04/22 showed advanced FSGS with IFTA 60%,Glomerular obsolescence. Pt is aware of NURSE TRANSPLANT modalities- Pt is also listed with transplant. She decided to do PD and also has multiple potential donors ( but has not really worked out) Finally had the PD cath placement 05/29/2023. Starting PD training on 06/03 as urgent start. Patient presents today and reports she is feeling well despite very high creat. Denies any inc in fatigue- cares for 3 small children . Good appetite, no pruritus, normal sleep pattern. Is now listed on transplant list and gets monthly labs. No edema despite No diuretics. alb still normal. No edema even though no diuretics Check-out note: No clinic follow up needed. Now peritoneal Dialysis patient. Will be seen in dialysis unit Dennis Sanford MD documented in this encounter Nursing Notes * Zenaida Marshall RN - 06/01/2023 11:17 AM EST 28 yo female here for follow up of CKD. Has questions about starting dialysis. documented in this encounter Plan of Treatment Upcoming Encounters Date Type Department Care Team (Late st Contact Info) Description 07/29/2023 8:00 AM EST Telemedicine Transplant Surgery 3rd Floor [facility], Amy Kohler [address] [facility] [place] [address] Coordinator, Transplant Nurse [address] [facility] [place] [address] 07/29/2023 11:30 AM EST Office Visit Transplant Clinic, [place] [address] [place] [address] Alexei Ross, [facility] [address] [place] [address] Stephanie Milton, EMERGENCY DEPARTMENT TECHNICIAN [address] [place] [address] 07/29/2023 12:40 PM EST Laboratory Outpatient Laboratory, [place] [address] [place] [address] [place], Lab B1a [address] [place] [address] 09/18/2023 12:00 PM EST Office Visit [address] [phone] Robert Garza PAPaul [address] [place] [address] [phone] Health Maintenance Due Date Last Done Comments [...] the patient have Health Care Power of Wood Drilling Machine Operator? No Full Code 09/28/2018 11:48 PM 10/03/2018 4:20 PM This order reflects the patients wishes and were consensually agreed upon. Full Code 04/26/2016 12:06 PM 04/29/2016 11:05 PM Th is order reflects the patients wishes and were consensually agreed upon. Care Teams Poiser Relationship Specialty Start Date End Date Robert Garza PA-C [address] [place] [id number] PCP - General Physician Candle Molder Hand 06/18/22 documented as of this encounter
--- OUTSIDE RECORDS SUMMARY | 2023-07-25 11:32 | External Medical Summary | Summary of Care ---
Author Name Unknown Organization [facility] Address [address] [place] [address] Phone [phone] Care Team Providers Care Brand Sales Consultant Name Role Phone Robert Garza PA-C Primary Care Provider [phone] Reason for Visit * Reason Comments case management CKD CM progress note Encounter Details Date Type Department Care Team (Late st Contact Info) Description 06/01/2023 Vault Manager Care Coordination [address] [place], [place] [id number] Miri Herzog, ALEX [address] [place] [address] Chronic kidney disease, stage 5 (HCC)* Allergies Active Allergy Reactions Criticality Noted Date Comments Amoxicillin-Pot Clavulanate Hives 04/26/2016 Pollen Other (Please comment) Medium 04/12/2012 Seasonal allergies: Itchy watery eyes, sneezes. documented as of this encounter (statuses as of 06/01/2023) Medications Medication Sig Dispensed Refills Start Date End Date Status Sodium Bicarbonate 650 MG Oral TabletIndications:C KD (chronic kidney disease) stage 5, GFR less than 15 ml/min (HCC),Metabolic acidosis Take 1 Tablet by mouth in the morning and 1 Tablet before bedtime. 180 Tablet 2 08/29/2022 Active Vitamin D (Ergocalciferol) 70907 UNIT Oral CapsuleIndications: Vitamin D deficiency Take 50,000 Units by mouth [...] Acetate (Phos Binder) 667 MG Oral Capsule (Phoslo)Indications :Chronic kidney disease, stage 5 (HCC) Take 2 Capsules by mouth in the morning and 2 Capsules at noon and 2 Capsules in the evening. Take with meals. 180 Capsule 1 03/24/2023 Active Ferrous Sulfate 325 (65 Fe) MG Oral Tablet (FeroSul)Indication s:Iron deficiency anemia, unspecified iron deficiency anemia type Take 1 Tablet by mouth in the morning and 1 Tablet before bedtime. 180 Tablet 2 04/21/2023 Active oxyCODONE HCl 5 MG Oral Tablet (Oxy IR) Take 1 Tablet by mouth every 6 hours as needed for Pain, Severe. 5 Tablet 0 05/29/2023 Active documented as of this encounter (statuses [...] Next Due Pneumococcal Conjugate Vacci ne, 20-valent ([id number]) 05/29/2023(Deferred: Patient Refused) SEASONAL INFLUENZA, PF, 6 [...] this encounter Progress Notes * Miri Herzog, RN - 06/01/2023 10:21 AM EST CKD CM progress note Spoke with pt, she had her TDC placed on 05/29/23. Pt has appt with Dr. Sanford this morning, she said she has not heard from PD Martita nurse re: flush/training. Pt denies any s/s of uremia. She is able to teach back red flags. Added fever redness at incision site. No wt change, no BP change. Pt has some pain to shoulder/collar bone area from gas during procedure. Asked pt to contact CM after she speaks with Dr. Sanford/Martita so office for disability can be made aware. Plan; f/u in one week with phone call. and 2-3 wks for goal review. Miri Herzog RN Kidney Transitions Specialist CKD Vault Manager documented in this encounter Plan of Treatment Upcoming Encounters Date Type Department Care Team (Late st Contact Info) Description 06/01/2023 11:20 AM EST Office Visit Nephrology [facility], [address] [place] [phone] Dennis Sanford MD [address] [facility] [place] [address] 07/29/2023 8:00 AM EST Telemedicine Transplant Surgery 3rd Floor [facility] [place], Amy Kohler [facility] [address] [facility] [place]ahn [address] Coordinator, Transplant Nurse [address] [place] [address] [place] [address] 07/29/2023 11:30 AM EST Office Visit Transplant Clinic, [place] [address] [place] [address] Alexei Ross, DNP [address] [place], [place] [phone] Stephanie Milton, CHICKEN AND FISH BUTCHER [address] [place], [place] [phone] 07/29/2023 12:40 PM EST Laboratory Outpatient Laboratory, [place] [address] [place] [phone] [place], Lab B1a [facility] [address], [place] [phone] 09/18/2023 12:00 PM EST Office Visit [address] [phone] Robert Garza PA-C [address] [place] [address] [phone] Health Maintenance Due Date Last Done Comments [...] Chronic kidney disease, stage 5 (HCC)- Primary documented in this encounter Advance Directives [...] the patient have Health Care Power of Metal Numerical Tool Programmer? No Full Code 09/28/2018 11:48 PM 10/03/2018 4:20 PM This order reflects the patients wishes and were consensually agreed upon. Full Code 04/26/2016 12:06 PM 04/29/2016 11:05 PM Th is order reflects the patients wishes and were consensually agreed upon. Care Teams Brand Sales Consultant Relationship Specialty Start Date End Date Robert Garza PA-C [address] [place], [place] [address]son [id number] PCP - General Physician Dredge Boat Engineer 06/18/22 documented as of this encounter
--- OUTSIDE RECORDS SUMMARY | 2023-07-25 11:32 | External Medical Summary ---
Demographics Address [address] [place] [address] Phone Unavailable Phone Unavailable Preferred Language Unknown Marital Status Unknown Spiritism Affiliation Unknown Race Unknown Ethnic Group Unknown Author Name Unknown Address Unknown Organization : Laboratory Report Ordering Provider Test Date Status DEMETRA ESCOBAR 06/02/2023 13:17:05 Correction Observation Date Value Abnormality Reference (Units ) Status REFERENCE LAB SCANNED REPORT 06/02/2023 13:17:05 See Scanned Report Final [facility] STORAGE FEE 06/02/2023 13:17:05 Serum not tested, on hold at [facility] HLA Lab Final Performing Location
--- OUTSIDE RECORDS SUMMARY | 2023-07-25 11:32 | External Medical Summary | Summary of Care ---
Author Name Unknown Organization [facility] Address [address] [place] [address] Phone [phone] Care Team Providers Care Mannequin Coloring Artist Name Role Phone Robert Garza PA-C Primary Care Provider [phone] Reason for Visit * Reason Onset Date Comments Follow Up 06/01/2023 Encounter Details Date Type Department Care Team (Late st Contact Info) Description 06/01/2023 10:00 AM EST Scheduled Telephone General Surgery Baldo Mojica 27 Ceci Zamora [facility] [address] [place] [address] Nurse Baldo Gen Surg Ceci Sultana RN 27 Ceci Sultana [facility] [address] [place] [address] Arrived Allergies Active Allergy Reactions Criticality Noted Date [...] Tablet 2 08/29/2022 Active Vitamin D (Ergocalciferol) 05624 UNIT Oral CapsuleIndications: Vitamin D deficiency Take [...] Next Due Pneumococcal Conjugate Vacci ne, 20-valent ([id number]) 05/29/2023(Deferred: Patient Refused) SEASONAL INFLUENZA, PF, 6 [...] encounter Miscellaneous Notes * Telephone Encounter - Stella Posey CMA - 06/01/2023 10:31 AM EST PATIENT IS S/p Placement of peritoneal dialysis catheter on 05/29/[address] Elena Stage Set Designer had just reached out to her. See note documented in this encounter Plan of Treatment Upcoming Encounters Date Type Department Care Team (Late st Contact Info) Description 06/01/2023 11:20 AM EST Office Visit Nephrology [address] [place] [phone] Dennis Sanford MD [address] [place] [address] 07/29/2023 8:00 AM EST Telemedicine Transplant Surgery 3rd Floor [facility] [address] [facility] [place] [address] Coordinator, Transplant Nurse [address] [facility] [place] [address] 07/29/2023 11:30 AM EST Office Visit Transplant Clinic, [place] [address] [place] [address] Alexei Ross, [facility] [address] [place] [address] Stephanie Milton, ALUMINUM FABRICATION SUPERVISOR [address] [place] [address] 07/29/2023 12:40 PM EST Laboratory Outpatient Laboratory, [facility] [address] [place] [address] [facility], Lab B1a [address] [place] [address] 09/18/2023 12:00 PM EST Office Visit [address] [phone] Robert Garza PA-C [address] [place] [address] [phone] Health Maintenance Due Date Last Done Comments [...] the patient have Health Care Power of Setup Technician? No Full Code 09/28/2018 11:48 PM 10/03/2018 4:20 PM This order reflects the patients wishes and were consensually agreed upon. Full Code 04/26/2016 12:06 PM 04/29/2016 11:05 PM Th is order reflects the patients wishes and were consensually agreed upon. Care Teams Mannequin Coloring Artist Relationship Specialty Start Date End Date Robert Garza PA-C [address] [place], [place] [address] [id number] PCP - General Physician Carbon Furnace Operator 06/18/22 documented as of this encounter
--- OUTSIDE RECORDS SUMMARY | 2023-07-25 11:32 | External Medical Summary | Summary of Care ---
Author Name Unknown Organization [facility] Address [address] [place] [address] Phone [phone] Care Team Providers Care Wet Machine Cutter Name Role Phone Robert Garza PA-C Primary Care Provider +1 [phone] Reason for Visit * Reason Onset Date Comments Order Request 06/08/2023 Encounter Details Date Type Department Care Team (Late st Contact Info) Description 06/08/2023 Telephone Transplant Clinic, [place] [address] [place] [address] Addie Barr RN [address] [place] [address] Order Request Allergies Active Allergy Reactions Criticality Noted Date Comments Amoxicillin-Pot Clavulanate Hives 04/26/2016 Pollen Other (Please comment) Medium 04/12/2012 Seasonal allergies: Itchy watery eyes, sneezes. documented as of this encounter (statuses as of 06/08/2023) Medications Medication Sig Dispensed Refills Start Date End Date Status Sodium Bicarbonate 650 MG Oral TabletIndications: CKD (chronic kidney disease) stage 5, GFR less than 15 ml/min (HCC),Metabolic acidosis Take 1 Tablet by mouth in the morning and 1 Tablet before bedtime. 180 Tablet 2 08/29/2022 Active Vitamin D (Ergocalciferol) 74115 UNIT Oral CapsuleIndications :Vitamin D deficiency Take [...] as of this encounter (statuses as of 06/08/2023) Active Problems Problem Noted Date Diagnosed Date [...] as of this encounter (statuses as of 06/08/2023) Resolved Problems Problem Noted Date Diagnosed Date [...] as of this encounter (statuses as of 06/08/2023) Immunizations Name Administration Dates Next Due Pneumococcal Conjugate Vacci ne, 20-valent ([id number]) 05/29/2023(Deferred: Patient Refused) SEASONAL INFLUENZA, PF, 6 [...] encounter Miscellaneous Notes * Telephone Encounter - Alvaro Mirza OSA - 06/08/2023 1:18 PM EST Monthly HLA Req faxed to [phone] per patient's request. * Telephone Encounter - Venessa Crowell OSA - 06/08/2023 12:49 PM EST Please fax monthly lab orders to [phone] Thank you HEIDE Carmona documented in this encounter Plan of Treatment Upcoming Encounters Date Type Department Care Team (Late st Contact Info) Description 07/29/2023 8:00 AM EST Telemedicine Transplant Surgery 3rd Floor Amy SUERO [address] [place] [address] Coordinator, Transplant Nurse [address] [place] [address] 07/29/2023 11:30 AM EST Office Visit Transplant Clinic, [place] [address] [place] [address] Alexei Ross, DNP [address] [place] [address] Stephanie Milton, WASHROOM CLEANER [address] [place] [address] 07/29/2023 12:40 PM EST Laboratory Outpatient Laboratory, [place] [address] [place] [address] [facility], Lab B1a [address] [place], [place] [phone] 09/18/2023 12:00 PM EST Office Visit [address] [phone] Robert Garza PA-C [address] [place] [address] Health Maintenance Due Date Last Done Comments [...] the patient have Health Care Power of Icu Specialist? No Full Code 09/28/2018 11:48 PM 10/03/2018 4:20 PM This order reflects the patients wishes and were consensually agreed upon. Full Code 04/26/2016 12:06 PM 04/29/2016 11:05 PM Th is order reflects the patients wishes and were consensually agreed upon. Care Teams Wet Machine Cutter Relationship Specialty Start Date End Date Robert Garza PA-C [address] [place], [place] [address] [address] PCP - General Physician Or First Assist Registered Nurse 06/18/22 documented as of this encounter
--- OUTSIDE RECORDS SUMMARY | 2023-07-25 11:32 | External Medical Summary | Summary of Care ---
Author Name Unknown Organization [facility] Address [address] [place] [address] Phone [phone] Care Team Providers Care Marketing Co Op Name Role Phone Robert Garza PA-C Primary Care Provider [phone] [phone] Reason for Visit * Reason Onset Date Comments Advice 05/11/2023 Encounter Details Date Type Department Care Team ([facility] Contact Info) Description 05/11/2023 Telephone NephrologyMoris [address] [place] [id number] Dennis Sanford MD [address] [place] [id number] Advice Allergies Active Allergy Reactions Criticality Noted Date Comments Amoxicillin-Pot Clavulanate Hives 04/26/2016 Pollen Other (Please comment) Medium 04/12/2012 Seasonal allergies: Itchy watery eyes, sneezes. documented as of this encounter (statuses as of 05/11/2023) Medications Medication Sig Dispensed Refills Start Date [...] Tablet 2 08/29/2022 Active Vitamin D (Ergocalciferol) 64909 UNIT Oral CapsuleIndications :Vitamin D deficiency Take [...] as of this encounter (statuses as of 05/11/2023) Active Problems Problem Noted Date Diagnosed Date [...] as of this encounter (statuses as of 05/11/2023) Resolved Problems Problem Noted Date Diagnosed Date [...] Booklet and appropriate trimester education reviewed. 09/13/2015 Jne Kessler RN 09/13/2015 10/15/2015 Problem Action Taken [...] as of this encounter (statuses as of 05/11/2023) Immunizations Name Administration Dates Next Due SEASONAL [...] encounter Miscellaneous Notes * Telephone Encounter - Meghan Parker RN - 05/11/2023 12:44 PM EDT Contacted by [facility] coordinator and questions answered. documented in this encounter Plan of Treatment Upcoming Encounters Date Type Department Care Team ([facility] Contact Info) Description 05/15/2023 7:30 AM EDT Hospital Encounter OR [facility], Operating Room, [facility] - 4th Floor [address] [place] [address] Donnie Elena MD [address] [place] [address] 05/15/2023 7:30 AM EDT - 05/15/2023 8:49 AM EDT Surgery OR GL, Operating Room, [facility] - 4th Floor [address] [place] [address] Donnie Elena MD [address] [place] [address] LAPAROSCOPIC INSERTION INTRAPERITONEAL CANNULA OR CATHETER 05/18/2023 9:30 AM EDT Scheduled Telephone General Surgery Baldo Mjoica [address] [place] [address] Nurse Baldo Gen Surg Ceci Sultana RN [address] [place] [address] 05/20/2023 6:20 PM EDT Office Visit [address] [phone] Robert Garza PA-C [address] [place] [address] 06/01/2023 11:20 AM EST Office Visit Nephrology [facility] [address] [facility] [address] [place] [phone] Dennis Sanford MD [address] [place] [address] 07/29/2023 8:00 AM EST Telemedicine Transplant Surgery 3rd Floor [facility] Amy Kohler [address] [facility] [place] [address] Coordinator, Transplant Nurse [address] [facility] [place] [address] 07/29/2023 11:30 AM EST Office Visit Transplant Clinic, [place] [address] [place], [place] [phone] Alexei Ross, DNP [address] [place], [place] [phone] Stephanie Milton, OYSTER FISHERMAN [address] [place], [place] [phone] 07/29/2023 12:40 PM EST Laboratory Outpatient Laboratory, [place] [address] [place] [address] [place], Lab B1a [address] [place] [address] Scheduled Procedures Name Priority Associated Diagnoses Date/Ti me LAPAROSCOPIC INSERTION INTRAPERITONEAL CANNULA OR CATHETER FSGS (focal segmental glomerulosclerosis) with nephrosis 05/15/2023 7:30 AM EDT Health Maintenance Due Date Last Done Comments [...] the patient have Health Care Power of Co Founder And Cto? No Code Status History Code Status Date Activated Date Inactivated Comments Full Code 09/28/2018 11:48 PM 10/03/2018 4:20 PM This order reflects the patients wishes and were consensually agreed upon. Full Code 04/26/2016 12:06 PM 04/29/2016 11:05 PM Th is order reflects the patients wishes and were consensually agreed upon. Care Teams Marketing Co Op Relationship Specialty Start Date End Date Robert Garza PA-C [address] [place] [address] [place] [phone] PCP - General Physician Distribution Agent 06/18/22 documented as of this encounter
--- OUTSIDE RECORDS SUMMARY | 2023-07-25 11:32 | External Medical Summary | Summary of Care ---
Author Name Unknown Organization [facility] Address [address] [place] [address] Phone [phone] Care Team Providers Care Sales Order Clerk Name Role Phone Robert Garza PA-C Primary Care Provider [phone] Reason for Visit * Reason Onset Date Comments Test Results 05/11/2023 Encounter Details Date Type Department Care Team ([facility] Contact Info) Description 05/11/2023 Telephone NephrologyMoris [address] [place] [address] Dennis Sanford MD 200 [place] [address] Test Results Allergies Active Allergy Reactions Criticality Noted Date [...] Tablet 2 08/29/2022 Active Vitamin D (Ergocalciferol) 19708 UNIT Oral CapsuleIndications :Vitamin D deficiency Take [...] any current needs or questions 06/28/2018 Jen Ksesler RN 06/28/18 Gestational proteinuria in third trimester [...] Encounter - Meghan Parker RN - 05/11/2023 9:34 AM EDT TE with pt regarding lab results. She is still planning to have her procedure on Thursday and has arrangements to go to [employer] for education. All information faxed to [employer]. * Telephone Encounter - Meghan Parker RN - 05/11/2023 9:34 AM EDT ----- Message from Dennis Sanford MD sent at 05/11/2023 8:48 AM EDT ----- All the hepatitis panel as well as chest x-ray all normal. Remind her again about getting the surgery done on May 15. 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 documented in this encounter Plan of Treatment Upcoming Encounters Date Type Department Care Team (Late st Contact Info) Description 05/15/2023 7:30 AM EDT Hospital Encounter OR [facility], Operating Room, [facility] - 4th Floor [address] [place] [address] Donnie Elena MD [address] [place] [address] 05/15/2023 7:30 AM EDT - 05/15/2023 8:49 AM EDT Surgery OR [facility], Operating Room, [facility] - 4th Floor [address] [place] [address] Donnie Elena MD [address] [place] [address] LAPAROSCOPIC INSERTION INTRAPERITONEAL CANNULA OR CATHETER 05/18/2023 9:30 AM EDT Scheduled Telephone General Surgery Ceci SultanaBaldo [address] [place] [address] Baldo, Nurse Gen Surg Ceci Sultana, RN [address] [place] [address] 05/20/2023 6:20 PM EDT Office Visit Family [facility] [address] [place] [address] Robert Garza PA-C [address] [place], [place] [phone] 06/01/2023 11:20 AM EST Office Visit Nephrology [facility] [address] [facility] [address] [place] [address] Dennis Sanford MD [address] [place] [address] 07/29/2023 8:00 AM EST Telemedicine Transplant Surgery 3rd Floor [facility] Amy [place] [address] [facility] [place] [address] Coordinator, Transplant Nurse [address] [facility] [place] [address] 07/29/2023 11:30 AM EST Office Visit Transplant Clinic, [address] [phone] Alexei Ross, DNP [address] [place] [address] Stephanie Milton, HEAD OF DATA [address] [place], [place] [phone] 07/29/2023 12:40 PM EST Laboratory Outpatient Laboratory, [place] [address] [place] [address] [place], Lab B1a [address] [place] [address] Scheduled Procedures Name Priority Associated Diagnoses Date/Ti [...] the patient have Health Care Power of Special Crimes Investigator? No Code Status History Code Status Date Activated Date Inactivated Comments Full Code 09/28/2018 11:48 PM 10/03/2018 4:20 PM This order reflects the patients wishes and were consensually agreed upon. Full Code 04/26/2016 12:06 PM 04/29/2016 11:05 PM Th is order reflects the patients wishes and were consensually agreed upon. Care Teams Sales Order Clerk Relationship Specialty Start Date End Date Robert Garza PA-C [address] [place] [phone] PCP - General Physician Executive Wellness Programs Director 06/18/22 documented as of this encounter
--- OUTSIDE RECORDS SUMMARY | 2023-07-25 11:32 | External Medical Summary ---
Author Name Unknown Address Unknown Organization : Laboratory Report Ordering Provider Test Date Status MARKOS TORRES 05/29/2023 10:11:06 Final Observation Date Value Abnormality Reference (Units ) Status Glucose Point of Care 05/29/2023 10:11:06 75 70-120 (mg/dL) Final Performing Location
--- OUTSIDE RECORDS SUMMARY | 2023-07-25 11:33 | External Medical Summary ---
Demographics Address [address] [place] [address] Phone Unavailable Phone Unavailable Preferred Language Unknown Marital Status Unknown [employer] Affiliation Unknown Race Unknown Ethnic Group Unknown Author Name Unknown Address Unknown Organization K01:LABORATORY [facility] - [address] [facility] [address] [facility] [address] Laboratory Report Ordering Provider Test Date Status MARKOS TORRES 05/08/2023 09:10:16 Final Observation Date Value Abnormality Reference (Units ) Status WBC, Total 05/08/2023 09:10:16 7.90 4.00-10.80 (K/uL) Final RBC 05/08/2023 09:10:16 3.48 3.85-5.15 (M/uL) Final Hemoglobin 05/08/2023 09:10:16 10.4 Below low normal 12.0-15.3 (g/dL) Final HCT 05/08/2023 09:10:16 31.4 Below low normal 36.0-45.2 (%) Final MCV 05/08/2023 09:10:16 90.2 81.5-97.5 (fL) Final MCH 05/08/2023 09:10:16 29.9 27.0-34.0 (pg) Final MCHC 05/08/2023 09:10:16 33.1 32.0-36.0 (g/dL) Final RDW 05/08/2023 09:10:16 12.3 11.5-15.5 (%) Final Platelets 05/08/2023 09:10:16 163 140-400 (K/uL) Final MPV 05/08/2023 09:10:16 11.3 6.6-11.1 (fL) Final Nucleated erythrocytes/100 leukocytes [Ratio] in Blood by Automated count 05/08/2023 09:10:16 0 <=0 (/100 WBCs) Final Performing Location LAB[facility]ATORY [facility] - [address] [place] [address]
--- OUTSIDE RECORDS SUMMARY | 2023-07-25 11:33 | External Medical Summary | Summary of Care ---
Author Name Unknown Organization [facility] Address [address] [place] [address] Phone [phone] Care Team Providers Care Stores Laborer Name Role Phone Robert Garza PA-C Primary Care Provider [phone] Reason for Visit * Reason Onset Date Comments case management 05/07/2023 CKD CM pt f/u Encounter Details Date Type Department Care Team Description 05/07/2023 Aircraft Air Conditioning Mechanic Telephone Care Coordination [address] [place], [place] [phone] Miri Herzog home management supervisor (CKD CM pt f/u ) Allergies Active Allergy Reactions Severity Noted Date Comments Amoxicillin-Pot Clavulanate Hives 04/26/2016 Pollen Other (Please comment) Medium 04/12/2012 Seasonal allergies: Itchy watery eyes, sneezes. 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 08/03/2019 Nephrotic range proteinuria 08/03/2019 Nephrotic syndrome 11/13/2017 Overview: See 11/2015 note documented as of this encounter (statuses as of 05/07/2023) Resolved Problems Problem Noted Date Resolved Date Hypertensive urgency 05/08/2022 06/21/2022 Stage 4 chronic kidney disease 05/08/2022 0 10/01/2022 Overview: Per CKD protocol Body mass index (BMI) of 40.0 to 44.9 in adult 0 10/28/2021 10/15/2022 Overview: Per Obesity protocol Morbid (severe) obesity due to excess calories 1 06/21/2022 GBS (group B streptococcus) infection 10/01/2018 11/12/2018 Overview: RV probe positive for GBS. Will in treat when in labor per protocol. Severe pre-eclampsia in third trimester 09/30/19 19 11/12/2018 Nexplanon removal 09/27/2018 05/01/2021 Overview: No, Advance Directive brochure offered, patient declined. Dichorionic diamniotic twin , antepartu m 07/26/2018 12/29/2018 Low back pain during in second trimest er 05/31/2018 12/29/2018 Persistent proteinuria 05/06/2018 2 Encounter for supervision of other normal , unspecified trimester 03/17/2018 07/26/2018 Overview: 03/17/18 Problem Action Taken Date entered [...] RN 06/28/18 Gestational proteinuria in third trimester 04/2912/29/2018 , with renal disease 12/13/2015 Class 1 obesity 12/13/2015 05/01/2021 Obesity in , antepartum 12/13/2015 06/21/2022 Hypothyroid in , antepartum 12/13/2015 07/21/2019 Supervision of high risk in third trim mitzy 09/13/2015 12/29/2018 Overview: 09/13/2015 Problem Action Taken [...] update of inactive term Surveillance of previously prescribed contracept kimberli method 04/25/2009 12/29/2018 Overview: Implanon left arm 04/19/09, removal due 04/19/2012 Viral warts 02/13/2009 04/25/2009 Overview: ICD-10 update of inactive term NO KNOWN PROBLEMS 03/30/2009 documented as of this encounter (statuses as of 05/07/2023) Immunizations Name Administration Dates Next Due SEASONAL INFLUENZA, PF, 6 M & Above, IM , (FLULAVAL or FLUZONE) 07/21/2019 TDAP (age 10 and older)(Boostrix) 10/03/2018,07/2015 documented as of this encounter Social History Tobacco Use Types Packs/Day Years Used Date Smoking Tobacco: Never Smokeless Tobacco: Never Alcohol Use Standard Drinks/Week Comments No 0 (1 standard drink = 0.6 oz pur e alcohol) Food Insecurity Answer Date Recorded Within the past 12 months, y ou worried that your food would run out before you got money to buy more. Never true 07/21/2019 Within the past 12 months, t he food you bought just didn't last and you didn't have money to get more. Never true 07/21/2019 Sex Assigned at Date Recorded Female 05/01/2021 5:18 PM E DT Job Start Date Occupation Industry Not on [...] encounter Miscellaneous Notes * Telephone Encounter - Miri Herzog RN - 05/07/2023 2:56 PM EDT CKD CM pt f/u Pt had surgical consult, will have PD catheter placed 05/15/23 Pt going for labs and CXR tomorrow. Pt able to teach back red flags. Pt denies s/s of uremia. Current Creat/GFR .01/21 Pt indicates PD nurse from [facility] called she has an appt on 05/20 for flushing and training to begin. Plan; f/u in 2 weeks for goal review. Miri Herzog RN Kidney Transitions Specialist CKD Aircraft Air Conditioning Mechanic documented in this encounter Plan of Treatment Upcoming Encounters Date Type Specialty Care Team Description 05/15/2023 Hospital Encounter Surgery Donnie Elena MD [address] [place] [address] 05/15/2023 Surgery Surgery Donnie Elena MD [address] [place] [address] LAPAROSCOPIC INSERTION INTRAPERITONEAL CANNULA OR CATHETER 05/18/2023 Scheduled Telephone General Surgery Nurse Baldo Gen Surg Ceci Sultana RN [address] [place] [address] 05/20/2023 Office Visit Family Medicine Robert Garza PA-C [address] [place] [address] 06/01/2023 Office Visit Nephrology Dennis Sanford MD [address] [place] [address] 07/29/2023 Telemedicine Transplant Surgery Coordinator, Transplant Nurse [address] [place] [address] [place] [address] 07/29/2023 Office Visit Transplant Clinic Alexei Ross, DNP [address] [place] [address] Stephanie Milton, FORECLOSURE SPECIALIST [address] [place], [place] [phone] 07/29/2023 Laboratory Laboratory [place], Lab B1a [address] [place], [place] [phone] Scheduled Procedures Name Priority Associated Diagnoses Date/Ti [...] the patient have Health Care Power of Senior Security Architect? No Code Status History Code Status Date Activated Date Inactivated Comments Full Code 09/28/2018 11:48 PM 10/03/2018 4:20 PM This order reflects the patients wishes and were consensually agreed upon. Full Code 04/26/2016 12:06 PM 04/29/2016 11:05 PM Th is order reflects the patients wishes and were consensually agreed upon. Care Teams Stores Laborer Relationship Specialty Start Date End Date Robert Garza PA-C [address] [place] [address] PCP - General Physician Ramp Agent 06/18/22 documented as of this encounter
--- OUTSIDE RECORDS SUMMARY | 2023-07-25 11:33 | External Medical Summary | Summary of Care ---
Author Name Unknown Organization [facility] Address [address] [place] [address] Phone [phone] Care Team Providers Care Pen Rider Name Role Phone Robert Garza PA-C Primary Care Provider [phone] Reason for Visit * Reason Onset Date Comments Information 05/01/2023 Annual Aug 12 Encounter Details Date Type Department Care Team Description [facility] [address] [place], [place] [id number] Agatha Marshall, ALEX [address] [place] [id number] Information (Aug 12) Allergies Active Allergy Reactions Severity Noted Date Comments Amoxicillin-Pot Clavulanate Hives 04/26/2016 Pollen Other (Please comment) Medium 04/12/2012 Seasonal allergies: Itchy watery eyes, sneezes. 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 Agatha Marshall RN documented in this encounter Plan of Treatment Upcoming Encounters Date Type Specialty Care Team Description 05/05/2023 Office Visit General Surgery Donnie Elena MD [address] [place] [address] 05/15/2023 Hospital Encounter Surgery Donnie Elena MD [address] [place] [address] 05/15/2023 Surgery Surgery Donnie Elena MD [address] [place] [address] LAPAROSCOPIC INSERTION INTRAPERITONEAL CANNULA OR CATHETER 05/18/2023 Scheduled Telephone General Surgery Nurse Baldo Gen Surg Ceci Sultana RN [address] [place] [address] 05/20/2023 Office Visit Family Medicine Robert Garza PA-C [address] [place] [address] 06/01/2023 Office Visit Nephrology Dennis Sanford MD [address] [place] [address] Scheduled Orders Name Type Priority Associated Diagnoses Orde r Schedule QUANTIFERON TB GOLD PLUS Lab STAT Pre-transplant evaluation for ESRD (end stage renal disease) Expected: 07/22/2023, Expires: 05/19/2024 HIV ANTIGEN & ANTIBODY SCREEN W/ CONFIRMATION Lab STAT Pre-transplant evaluation for ESRD (end stage renal disease) Expected: 07/22/2023, Expires: 05/19/2024 RPR Lab STAT Pre-transplant evaluation for ESRD (end stage renal disease) Expected: 07/22/2023, Expires: 05/19/2024 HEPATITIS B SURFACE ANTIGEN Lab STAT Pre-transplant evaluation for ESRD (end stage renal disease) Expected: 07/22/2023, Expires: 05/19/2024 HEPATITIS B SURFACE ANTIBODY Lab STAT Pre-transplant evaluation for ESRD (end stage renal disease) Expected: 07/22/2023, Expires: 05/19/2024 HEPATITIS B CORE ANTIBODIES IGG AND IGM Lab STAT Pre-transplant evaluation for ESRD (end stage renal disease) Expected: 07/22/2023, Expires: 05/19/2024 HEPATITIS C ANTIBODY Lab STAT Pre-transplant evaluation for ESRD (end stage renal disease) Expected: 07/22/2023, Expires: 05/19/2024 COMPREHENSIVE METABOLIC PANEL Lab STAT Pre-transplant evaluation for ESRD (end stage renal disease) Expected: 07/22/2023, Expires: 05/19/2024 MONTHLY HLA CLASS 1 & 2 W/REFLEX, SOLID ORGAN TRANSPLANT Lab STAT Pre-transplant evaluation for ESRD (end stage renal disease) Expected: 07/22/2023, Expires: 05/19/2024 PTH Lab STAT Pre-transplant evaluation for ESRD (end stage renal disease) Expected: 07/22/2023, Expires: 05/19/2024 HEMOGLOBIN A1C Lab STAT Pre-transplant evaluation for ESRD (end stage renal disease) Expected: 07/22/2023, Expires: 05/19/2024 Scheduled Procedures Name Priority Associated [...] renal disease)- Primary Other specified pre-operative examination FSGS (focal segmental glomerulosclerosis) with nephrosis 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 Question Answer Comments Discussion of Advance Directives occurred with: Patient Does the patient have a Living Will? No Does the patient have Health Care Power of Senior Product Integrity Engineer? No Code Status History Code Status Date Activated Date Inactivated Comments Full Code 09/28/2018 11:48 PM 10/03/2018 4:20 PM This order reflects the patients wishes and were consensually agreed upon. Full Code 04/26/2016 12:06 PM 04/29/2016 11:05 PM Th is order reflects the patients wishes and were consensually agreed upon. Care Teams Pen Rider Relationship Specialty Start Date End Date Robert Garza PA-C [address] [place] [address] PCP - General Physician Servicenow Administrator Developer 06/18/22 documented as of this encounter
--- OUTSIDE RECORDS SUMMARY | 2023-07-25 11:33 | External Medical Summary | Summary of Care ---
Author Name Unknown Organization [facility] Address [address] [place] [address] Phone [phone] Care Team Providers Care Customs Import Specialist Name Role Phone Robert Garza PA-C Primary Care Provider [phone] Reason for Visit * Reason Comments NEW PATIENT Encounter Details Date Type Department Care Team Description 05/05/2023 Office Visit General Surgery Baldo Mojica [address] [place] [id number] Donnie Elena MD [address] [address] Chronic kidney disease, stage 5 (HCC)*; Pre-op testing Allergies Active Allergy Reactions Severity Noted Date Comments Amoxicillin-Pot Clavulanate Hives 04/26/2016 Pollen Other (Please comment) Medium 04/12/2012 Seasonal allergies: Itchy watery eyes, sneezes. 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 08/03/2019 Nephrotic range proteinuria 08/03/2019 Nephrotic syndrome 11/13/2017 Overview: See 11/2015 note documented as of this encounter (statuses as of 05/05/2023) Resolved Problems Problem Noted Date Resolved Date [...] as of this encounter (statuses as of 05/05/2023) Immunizations Name Administration Dates Next Due SEASONAL [...] Sign Reading Time Taken Comments Blood Pressure 189/99 05/05/2023 11:16 AM EDT Pulse 66 05/05/2023 11:16 AM EDT Temperature 36.6 C (97.9 F) 05/05/2023 11:16 AM E DT Respiratory Rate - - Oxygen Saturation - - Inhaled Oxygen Concentration - - Weight 89.8 kg (198 lb) 05/05/2023 11:16 AM EDT Height - - Body Mass Index 33.99 11/29/2022 10:24 AM EDT documented in this encounter Functional [...] as of this encounter Progress Notes * Erendira May, DO - 05/05/2023 11:32 AM EDT DOS: 05/05/2023 Ref: Patient is seen at the request of Robert Garza PA-C. CC: PD Catheter Placement HPI: Patient is a 28 year old female with PMHx of biopsy-proven primary FSGS, nephrotic range proteinuria 2018,CKD stage 5, HTN hypothyroidism presenting for surgical consultation for PD Cath placement. Surgery scheduled 06/15/23 No blood thinners. Previous C section (2019), otherwise no previous surgeries Subjective ROS: CONST: [...] disease, chronic, stage IV (GFR 15-29 ml/min) ([facility]) 06/20/2021 Nephrotic syndrome 2016 Surveillance of previously [...] or other meds) 05/04/2023 Vitamin D (Ergocalciferol) 20945 UNIT Oral Capsule Take 50,000 Units by [...] performed by Mio Fuentes MD at [facility] INSERT CONTRACEPTIVE CAPSULES 04/19/09 Implanon IR BIOPSY 06/04/2022 RENAL BIOPSY, PERCUTANEOUS (TROCAR/NEEDLE) N/A 02/23/2019 RENAL BIOPSY PERCUTANEOUS performed [place] [facility] [place] [facility] Family History Problem Relation [...] -Patient expressed understanding and agrees Erendira May, DO This service was discussed with Dr. Elena [...] documented in this encounter Nursing Notes * Meghan Marshall LPN - 05/05/2023 11:16 AM EDT Chief Complaint Patient presents with NEW PATIENT Pt referred by Nephrology for consultation of PD catheter. documented in this encounter Plan of Treatment Upcoming Encounters Date Type Specialty Care Team Description 05/15/2023 Hospital Encounter Surgery Donnie Elena MD [address] [facility] [address] [address] 05/15/2023 Surgery Surgery Donnie Elena MD [address] [facility] [address] [phone] LAPAROSCOPIC INSERTION INTRAPERITONEAL CANNULA OR CATHETER 05/18/2023 Scheduled Telephone General Surgery Nurse Baldo Gen Surg [facility] [address] [facility] [address] [address] 05/20/2023 Office Visit Family Medicine Robert Garza PA-C [address] [place] [address] 06/01/2023 Office Visit Nephrology Dennis Sanford MD [address] [place] [address] 07/29/2023 Telemedicine Transplant Surgery Coordinator, Transplant Nurse [address] [place] [address] [place] [address] 07/29/2023 Office Visit Transplant Clinic Alexei Ross, ARON [address] [place] [address] Stephanie Milton, PEST CONTROL CHEMICAL TECHNICIAN [address] [place] [address] 07/29/2023 Laboratory Laboratory [place], Lab [address] [place] [address] Scheduled Orders Name Type Priority Associated Diagnoses Orde r Schedule CBC Lab Routine Chronic kidney disease, stage 5 (HCC) Pre-op testing Expected: 05/11/2023 (Approximate), Expires: 05/05/2024 BASIC METABOLIC PANEL Lab Routine Chronic kidney disease, stage 5 (HCC) Pre-op testing Expected: 05/11/2023 (Approximate), Expires: 05/05/2024 Scheduled Procedures Name Priority Associated Diagnoses Date/Ti [...] Chronic kidney disease, stage 5 (HCC)- Primary Pre-op testing Preoperative examination, unspecified FSGS (focal segmental glomerulosclerosis) with nephrosis Chronic [...] the patient have Health Care Power of Internet Marketing Consultant? No Code Status History Code Status Date Activated Date Inactivated Comments Full Code 09/28/2018 11:48 PM 10/03/2018 4:20 PM This order reflects the patients wishes and were consensually agreed upon. Full Code 04/26/2016 12:06 PM 04/29/2016 11:05 PM Th is order reflects the patients wishes and were consensually agreed upon. Care Teams Customs Import Specialist Relationship Specialty Start Date End Date Robert Garza PA-C [address] [place] [address] PCP - General Physician Paint Roller Winder 06/18/22 documented as of this encounter"
--- OUTSIDE RECORDS SUMMARY | 2023-07-25 11:33 | External Medical Summary ---
Demographics Address [address] [place] [address] Phone Unavailable Phone Unavailable Preferred Language Unknown Marital Status Unknown Worship Affiliation Unknown Race Unknown Ethnic Group Unknown Author Name Unknown Address Unknown Organization K01:[facility] - [address] [address] Laboratory Report Ordering Provider Test Date Status LAZ MATTHEWS 04/28/2023 08:33:34 Final Observation Date Value Abnormality Reference (Units ) Status BUN 04/28/2023 08:33:34 85 Above high normal 6-20 (mg/dL) Final Creatinine 04/28/2023 08:33:34 10.7 Above high normal 0.5-1.0 (mg/dL) Final Glomerular filtration rate/1.73 sq M.predicted [Volume Rate/Area] in Serum, Plasma or Blood by Creatinine-based formula (CKD-EPI) 04/28/2023 08:33:34 5 Below low normal >=60 (mL/min) Final eGFR is calculated based on the CKD-EPI 2020 equation SODIUM 04/28/2023 08:33:34 135 135-146 (m mol/L) Final Potassium 04/28/2023 08:33:34 4.8 3.5-5.1 (m mol/L) Final Cl 04/28/2023 08:33:34 101 98-107 (mm ol/L) Final CO2 04/28/2023 08:33:34 18 Below low normal 22- 32 (mmol/L) Final Anion gap 04/28/2023 08:33:34 16 Above high normal 7- 15 (mmol/L) Final Glucose 04/28/2023 08:33:34 82 70-120 (mg /dL) Final Calcium 04/28/2023 08:33:34 8.6 8.4-10.2 ( mg/dL) Final Albumin 04/28/2023 08:33:34 4.2 3.8-5.0 (g /dL) Final Phosphate 04/28/2023 08:33:34 7.7 Above high normal 2. 5-4.8 (mg/dL) Final Performing Location [facility] - [address] [facility] [address]
--- OUTSIDE RECORDS SUMMARY | 2023-07-25 11:33 | External Medical Summary | Summary of Care ---
Author Name Unknown Organization [facility] Address [address] [place] [address] Phone [phone] Care Team Providers Care Exercise Science Instructor Name Role Phone Robert Garza PA-C Primary Care Provider [phone] [phone] Reason for Visit * Reason Comments case management CKD CM LATE ENTRY FO R 04/15/23 Encounter Details Date Type Department Care Team Description 04/21/2023 Gas Or Water Meter Installer Care Coordination [address] [place], [place] [phone] Miri Herzog RN Chronic kidney disease, stage 5 (HCC)*; CKD, patient preferred treatment modality peritoneal dialysis Allergies Active Allergy Reactions Severity Noted Date Comments Amoxicillin-Pot Clavulanate Hives 04/26/2016 Pollen Other (Please comment) Medium 04/12/2012 Seasonal allergies: Itchy watery eyes, sneezes. documented as of this encounter (statuses as of 04/21/2023) Medications Medication Sig Dispensed Refills Start Date End Date Status Carvedilol 12.5 MG Oral Tablet (Coreg) TAKE 1 TABLET BY MOUTH 2 TIMES A DAY WITH MORNING AND EVENING MEALS. 60 Tablet 11 05/09/2022 05/09/2023 Active Ferrous Sulfate 325 (65 Fe) MG Oral Tablet (Feosol)Indication s:Iron deficiency anemia, unspecified iron deficiency anemia type Take 1 Tablet by mouth in the morning and 1 Tablet before bedtime. 180 Tablet 2 07/23/2022 Active Sodium Bicarbonate 650 MG Oral TabletIndications: CKD (chronic kidney disease) stage 5, GFR less than 15 ml/min (HCC),Metabolic acidosis Take 1 Tablet by mouth in the morning and 1 Tablet before bedtime. 180 Tablet 2 08/29/2022 Active Vitamin D (Ergocalciferol) 23509 UNIT Oral CapsuleIndications :Vitamin D deficiency Take [...] with meals. 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 Wt is 198#, denies any edema. Appetite is good, limiting salt, potassium and phosphorus, pt taking phosphate binder with food at mealtimes. No med changes. Reviewed importance of scheduling appt for surgical consult to get PD catheter placed. Pt reports that her sister is not a match for kidney donation but is willing to donate a kidney so pt can get one. Pt able to teach back red flags. Plan; f/u in 1-2 weeks for goal review. Exacerbation Plan Reviewed S/S of uremia and fluid retention. Reviewed diet restrictions, including no added salt, phosphorus and potassium. Encouraged to call office if symptoms occur. Follow up: as noted above patient verbalizes understanding to call office if questions or concerns arise. Miri Herzog RN Kidney Transitions Specialist Nephrology Case Management documented in this encounter Plan of Treatment Upcoming Encounters Date Type Specialty Care Team Description 04/29/2023 Office Visit Nephrology Dennis Sanford MD [address] [place] [address] 05/20/2023 Office Visit Family Medicine Robert Garza PA-C [address] [place] [address] Health Maintenance Due Date Last Done [...] Ratio Discontinued 10/06/2022, 04/20 Nephrology Referral Discontinued 02/27/2023 GARDASIL-HPV IMMUNIZATION SERIES Aged Out No longer eligible based on patient's age to complete this topic MENINGOCOCCAL (MENACTRA/MENVEO) Aged Out No longer eligible based on patient's age to complete this topic documented as of this encounter Medical Devices Not on filedocumented as of this encounter Visit Diagnoses Diagnosis Chronic kidney disease, stage 5 (HCC)- Primary CKD, patient preferred treatment modality peritoneal dialysis documented in this encounter Advance Directives Latest [...] the patient have Health Care Power of Superintendent Power? No Code Status History Code Status Date Activated Date Inactivated Comments Full Code 09/28/2018 11:48 PM 10/03/2018 4:20 PM This order reflects the patients wishes and were consensually agreed upon. Full Code 04/26/2016 12:06 PM 04/29/2016 11:05 PM Th is order reflects the patients wishes and were consensually agreed upon. Care Teams Exercise Science Instructor Relationship Specialty Start Date End Date Robert Garza PA-C [address] [place], [place] [address] [id number] PCP - General Physician Surgical Territory Manager 06/18/22 documented as of this encounter
--- OUTSIDE RECORDS SUMMARY | 2023-07-25 11:33 | External Medical Summary | Summary of Care ---
Author Name Unknown Organization [facility] Address [address] [place] [address] Phone [phone] Care Team Providers Care Guide Setter Name Role Phone Robert Garza PA-C Primary Care Provider [phone] Reason for Visit * Reason Comments Chronic Kidney Disease (CKD) Encounter Details Date Type Department Care Team Description 04/29/2023 Office Visit Nephrology [address] [place] [id number] Dennis Sanford MD [address] [place] [address] FSGS (focal segmental glomerulosclerosis) with nephrosis*; CKD (chronic kidney disease) stage 5, GFR less than 15 ml/min ([facility]) Allergies Active Allergy Reactions Severity Noted Date Comments Amoxicillin-Pot Clavulanate Hives 04/26/2016 Pollen Other (Please comment) Medium 04/12/2012 Seasonal allergies: Itchy watery eyes, sneezes. documented as of this encounter (statuses as of 04/29/2023) Medications Medication Sig Dispensed Refills Start Date [...] Tablet 2 08/29/2022 Active Vitamin D (Ergocalciferol) 97634 UNIT Oral CapsuleIndications :Vitamin D deficiency Take [...] as of this encounter (statuses as of 04/29/2023) Active Problems Problem Noted Date Chronic kidney disease, stage 5 09/30/19 Overview: Per CKD protocol Abnormal uterine bleeding (AUB) 07/29/19 Encounter for gynecological examination with abnormal finding 07/29/2022 Acquired hypothyroidism 05/08/2022 HTN, goal below 130/80 08/03/2019 FSGS (focal segmental glomerulosclerosis ) with nephrosis 08/03/2019 Nephrotic range proteinuria 08/03/2019 Nephrotic syndrome 11/13/2017 Overview: See 11/2015 note documented as of this encounter (statuses as of 04/29/2023) Resolved Problems Problem Noted Date Resolved Date [...] as of this encounter (statuses as of 04/29/2023) Immunizations Name Administration Dates Next Due SEASONAL [...] Sign Reading Time Taken Comments Blood Pressure 155/109 04/29/2023 10:26 AM EDT Pulse 62 04/29/2023 10:26 AM EDT Temperature 36 C (96.8 F) 04/29/2023 10:22 AM EDT Respiratory Rate 16 04/29/2023 10:22 AM EDT Oxygen Saturation - - Inhaled Oxygen Concentration - - Weight 90.7 kg (200 lb) 04/29/2023 10:22 AM EDT Height - - Body Mass Index 34.33 11/29/2022 10:24 AM EDT documented in this [...] Progress Notes * Dennis Sanford MD - 04/29/2023 10:49 AM EDT Chief Complaint Patient presents with Chronic Kidney Disease (CKD) SUBJECTIVE: HPI:Patient is a 28 year old female with notable for history of biopsy-proven primary FSGS, nephrotic range proteinuria 2018,CKD stage 5, HTN hypothyroidism called today for CKD follow up. Notes from Nephrology consult by Dr Travis Regarding her primary FSGS-patient is been having nephrotic range proteinuria since 2016 (at that time she had her 1st child) and then lost to follow-up and with her 2nd she was found to have persistent nephrotic range proteinuria and underwent renal biopsy in 02/2019 which showed primary FSGS NOS variant, ATN, interstitial fibrosis and tubular atrophy 20-25%. Initially on prednisone (unknown the date it was started-likely March 17) which was tapered aroundMarch 2019 and she was started on cyclosporine since February 2019. She has been taking it and then around February 2022 she stopped taking due to unclear reasons. She is currently not on any medications. She is stopped getting blood work since June 2021 because nobody was there to help her drive to outpatient laboratory. Since last visit ----She decided to do PD and also has multiple potential donors. So she cancelled her AVF surgery. Also has not proceeded with appt with PD surgeon. Patient presents today and reports she is feeling well. Denies any inc in fatigue- cares for 3 small children . Good appetite, no pruritus, normal sleep pattern. Is now listed on transplant list and gets monthly labs. No edema despite No diuretics. Hgb, alb still normal. HISTORY: Current Outpatient Medications Medication Sig Dispense Refill Carvedilol 12.5 MG Oral Tablet (Coreg) TAKE 1 TABLET BY MOUTH 2 TIMES A DAY WITH MORNING AND EVENING MEALS. 60 Tablet 11 Sodium Bicarbonate 650 MG Oral Tablet Take 1 Tablet by mouth in the morning and 1 Tablet before bedtime. 180 Tablet 2 Vitamin D (Ergocalciferol) 77510 UNIT Oral Capsule Take 50,000 Units by [...] 1 Tablet before bedtime. 180 Tablet 2 No current facility-administered medications for this visit. Review of patient's allergies indicates: Allergen Reactions Environmental [Pollen] Other (Please comment) Seasonal allergies: Itchy watery eyes, sneezes. Augmentin [Amoxicillin-Pot Clavulanate] Hives Past Medical History: Diagnosis Date Chronic kidney disease (CKD), stage II (mild) FSGS (focal segmental glomerulosclerosis) 2015 Hypothyroidism Kidney disease, chronic, stage IV (GFR 15-29 ml/min) ([facility]) 06/20/2021 Nephrotic syndrome 2016 Surveillance of previously prescribed contraceptive method 04/25/2009 Implanon left arm 04/19/09, removal due 04/19/2012 Viral warts, unspecified 02/13/2009 condyloma Past Surgical History: Procedure Laterality Date DELIVERY ONLY W/ N/A 09/30/2018 DELIVERY AND CARE [place] [facility] [place] CONTRACEPTIVE CAPSULES 04/19/09 Implanon IR BIOPSY 06/04/2022 RENAL BIOPSY, PERCUTANEOUS (TROCAR/NEEDLE) N/A 02/23/2019 RENAL BIOPSY PERCUTANEOUS [place] [facility] [place] [facility] Family History Problem Relation Age of Onset [...] Resource Strain: Not on file Food Insecurity: Not on file Transportation Needs: Not on file Physical Activity: [...] were reviewed and were negative. OBJECTIVE: BP 155/109 (BP Site: Right Arm, BP Position: Sitting, BP Cuff Size: Regular) | Pulse 62 | Temp 36 C (96.8 F) (Tympanic) | Resp 16 | Wt 90.7 kg (200 lb) | BMI 34.33 kg/m | BSA 2.02 m Wt Readings from Last 1 Encounters: 04/29/23 90.7 kg (200 lb) General appearance: alert, no apparent distress. HEAD: [...] Readings: BP Readings from Last 4 Encounters: 04/29/23 155/109 02/27/23 136/84 01/14/23 132/76 11/29/22 153/100 Last 3 Weights: Wt Readings from Last 3 Encounters: 04/29/23 90.7 kg (200 lb) 02/27/23 89.4 kg (197 lb) 01/14/23 92.5 kg (204 lb) Estimated body mass index is 34.33 kg/m as calculated from the following: Height as of 11/29/22: 1.626 m (5' 4"). Weight as of this encounter: 90.7 kg (200 lb). LABS: Latest Reference Range & Units 06/20/21 [...] Normal. No mass. Kidneys and ureters: The kiana kidneys are small and atrophic. Stomach and [...] Chronic kidney disease, stage 5 (HCC) (Primary) - PTH; Future; Expected date: 11/20/2022 - RENAL FUNCTION PANEL; Future; Expected date: 11/20/2022 FSGS (focal segmental glomerulosclerosis) with nephrosis Gradually worsening renal function with proteinuria> unfortunately now progressed to CKD 5 GFR now 5. medication non compliance- previously on prednisone and cyclosporine, stopped by herself, and lost to follow up with nephrology. Kidney biopsy 06/04/22 showed advanced FSGS with IFTA 60%,Glomerular obsolescence. Pt is aware of FORM GRADER modalities- Pt is also listed with transplant. She has decided to do PD at home now after talking to her sister's Mother in law who is my PD patient. She told good things about the PD nurse in [facility] unit and now she wants to do sameas her sister's Mother in law. She also wants to use the same surgeon for PD--which is Dr Elena at [facility]. Will arrange this. Already did home visit by PD nurse and she has been cleared without any issues. Even now she feels completely normal and is very surprised to hear that GFR is so low. Normal exam no edema despite no diuretics. Absolutely no uremic symptoms so no need to start dialysis at this point. She has ?? multiple donors however I reached out to transplant Dept and none has worked so far. Most have not followed through with testing. Sister not a match. Patient would really like to get transplant directly without doing dialysis but now with creat of 10.8 not really an option. Told her and her that leaving ESRD untreated can cause fatal cardiac Arrhythmia, Pericardial effusion, life threatening bleed and so many sudden situation that it is not worth few more months of waiting. They agreed and said they will follow up with appt with Dr Elena. They have been delaying this for a while. I have messaged Dr Elena also to help expedite the Surgery. Will do PD training right after PD cath placement. I spent a total of Greater than 55 mins (exact time 56 mins) on the date of service in preparation,delivery, and documentation of the care provided to Radha Lane excluding any time spent in theperformance of separately billed services. Dennis Sanford MD documented in this encounter Nursing Notes * Yaneth Bess RN - 04/29/2023 10:20 AM EDT Patient identified by full name and date of Chief Complaint Patient presents with Chronic Kidney Disease (CKD) documented in this encounter Plan of Treatment Upcoming Encounters Date Type Specialty Care Team Description 05/20/2023 Office Visit Family Medicine Robert Garza PA-C [address] [place] [id number] 06/01/2023 Office Visit Nephrology Dennis Sanford MD [address] [place] [phone] Health Maintenance Due Date Last Done Comments [...] as of this encounter Visit Diagnoses Diagnosis 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 No Code Status History Code Status Date Activated Date Inactivated Comments Full Code 09/28/2018 11:48 PM 10/03/2018 4:20 PM This order reflects the patients wishes and were consensually agreed upon. Full Code 04/26/2016 12:06 PM 04/29/2016 11:05 PM Th is order reflects the patients wishes and were consensually agreed upon. Care Teams Guide Setter Relationship Specialty Start Date End Date Robert Garza PA-C [address] [place] [id number] PCP - General Physician Cellophane Press Operator 06/18/22 documented as of this encounter
--- OUTSIDE RECORDS SUMMARY | 2023-07-25 11:33 | External Medical Summary ---
Demographics Address [address] [place] [address] Phone Unavailable Phone Unavailable Preferred Language Unknown Marital Status Unknown Samaritan Affiliation Unknown Race Unknown Ethnic Group Unknown Author Name Unknown Address Unknown Organization [facility] - [address] [place] [address] Laboratory Report Ordering Provider Test Date Status LAZ MATTHEWS 05/08/2023 09:10:16 Final Observation Date Value Abnormality Reference (Units ) Status Hep B Core IgM 05/08/2023 09:10:16 Negative Negat kimberli Final Performing Location [facility] - [address] [place] [address]
--- OUTSIDE RECORDS SUMMARY | 2023-07-25 11:33 | External Medical Summary | Summary of Care ---
Author Name Unknown Organization [facility] Address [address] [place] [address] Phone [phone] Care Team Providers Care Cable Tv Installer Name Role Phone Robert Garza PA-C Primary Care Provider [phone] Reason for Visit * Reason Comments case management CKD CM goal review Encounter Details Date Type Department Care Team Description 04/23/2023 Cashier And Salesperson Care Coordination [address], [place] [phone] Miri Herzog RN Chronic kidney disease, stage 5 (HCC)*; CKD, patient preferred treatment modality peritoneal dialysis Allergies Active Allergy Reactions Severity Noted Date Comments Amoxicillin-Pot Clavulanate Hives 04/26/2016 Pollen Other (Please comment) Medium 04/12/2012 Seasonal allergies: Itchy watery eyes, sneezes. documented as of this encounter (statuses as of 04/23/2023) Medications Medication Sig Dispensed Refills Start Date [...] Tablet 2 08/29/2022 Active Vitamin D (Ergocalciferol) 14286 UNIT Oral CapsuleIndications :Vitamin D deficiency Take [...] as of this encounter (statuses as of 04/23/2023) Active Problems Problem Noted Date Chronic kidney disease, stage 5 09/30/19 Overview: Per CKD protocol Abnormal uterine bleeding (AUB) 07/29/19 Encounter for gynecological examination with abnormal finding 07/29/2022 Acquired hypothyroidism 05/08/2022 HTN, goal below 130/80 08/03/2019 FSGS (focal segmental glomerulosclerosis ) with nephrosis 08/03/2019 Nephrotic range proteinuria 08/03/2019 Nephrotic syndrome 11/13/2017 Overview: See 11/2015 note documented as of this encounter (statuses as of 04/23/2023) Resolved Problems Problem Noted Date Resolved Date [...] trimest er 05/31/2018 12/29/2018 Persistent proteinuria 05/06/2018 Encounter for supervision of other normal , [...] having any current needs or questions 11/15/2015 eJn Kessler RN 11/15/2015 01/07/2016 Problem Action Taken [...] as of this encounter (statuses as of 04/23/2023) Immunizations Name Administration Dates Next Due SEASONAL [...] Progress Notes * Miri Herzog RN - 04/23/2023 3:36 PM EDT Cashier And Salesperson Progress Note: Date: 04/23/23 Assigned Patient Tier: 3 Connected with patient via phone. Verified patient name/. Advised patient that call is being recorded for quality and training purposes. Assessment: Pt. noted the following: CKD CM goal review Spoke with pt, she is able to teach back red flags. She has not yet scheduled surgical consult for PD catheter. Pt says her kids, and everyone is sick,she didn't want to schedule it and then not make it. Encouraged her to call and get on the scheduleand if still not feeling well to call and let them know her symptoms to see if they still want her to come. Pt denies any s/s of uremia. She is able to teach back red flags. Wt 198#, BP 135/70. No med changes. Plan: will f/u with pt in 2 wks for progress note. . Did you receive an alert for an annual wellness visit? No Is this call for a hospital, prison or rehab facility discharge to home? No Medication Reconciliation: Medication Reconciliation completed: reviewed, no changes Review of Current goals: Discussed the following patient-centered CM goals with the patient during this discussion: -CKD: Patient will maintain kidney function as long as possible -Status: At Risk Creat/GFR continue to get progress, denies s/s of uremia at this time.. -ESRD: Patient will be prepared for dialysis initiation -Status: At Risk pt has not yet scheduled PD placement consult, verified that she has number to schedule and encouraged her to do so. -SYMPTOM Monitoring: Patient will verbalize understanding of symptom monitoring -Status: On Track pt able to verbalize/teach back red flags.. COPD Patient: No CHF Patient: NO CM Plan: Reviewed 3 Red Flags with patient. Advised to call CM with any of the following: Red Flag 1: edema,Red Flag 2: N/V, or Red Flag 3: metallic taste Remote Patient Monitoring: At this time, RPM not offered/considered for patient due to pt has own equipment. Plan for Future Contacts: Plan to follow up within 2 weeks to check progress on the following goals/needs s/s of uremia. Planned contacts from the following parties will occur this week: Specialty Visit as additional contacts per workflow. Advancement/Closure Plan: Keep patient at current Tier with reassessment per workflow. Patient provided CM contact information and encouraged to call with any changes in condition. SNP Member? No PCP Notified of enrollment in CM/HM program: Yes Is Provider in agreement with POC? Yes Exacerbation Plan Reviewed S/S of uremia and fluid retention. Reviewed diet restrictions, including no added salt, phosphorus and potassium. Encouraged to call office if symptoms occur. Follow up:as noted above, patient verbalizes understanding to call office if questions or concerns arise. Miri Herzog RN Kidney Transitions Specialist Nephrology Case Management documented in this encounter Plan of Treatment Upcoming Encounters Date Type Specialty Care Team Description 04/29/2023 Office Visit Nephrology Dennis Sanford MD [address] [place] [address] 05/20/2023 Office Visit Family Medicine Robert Garza PA-C [address] [place] [phone] Health Maintenance Due Date Last Done Comments [...] the patient have Health Care Power of Shoulder Joiner? No Code Status History Code Status Date Activated Date Inactivated Comments Full Code 09/28/2018 11:48 PM 10/03/2018 4:20 PM This order reflects the patients wishes and were consensually agreed upon. Full Code 04/26/2016 12:06 PM 04/29/2016 11:05 PM Th is order reflects the patients wishes and were consensually agreed upon. Care Teams Cable Tv Installer Relationship Specialty Start Date End Date Robert Garza PA-Mirza [address] [place] [id number] PCP - General Physician Gis Mapping Technician 06/18/22 documented as of this encounter
--- OUTSIDE RECORDS SUMMARY | 2023-07-25 11:33 | External Medical Summary | Summary of Care ---
Author Name Unknown Organization [facility] Address [address] [place] [address] Phone [phone] Care Team Providers Care Tile Ditcher Name Role Phone Robert Garza PA-C Primary Care Provider [phone] Reason for Visit * Reason Onset Date Comments case management 04/21/2023 CKD CM attempt t o contact Encounter Details Date Type Department Care Team Description 04/21/2023 Depilatory Painter Telephone Care Coordination [address] [place], [place] [phone] Miri Herzog, agency sales management assistant (CKD CM attempt to contact) Allergies Active Allergy Reactions Severity Noted Date [...] Tablet 2 08/29/2022 Active Vitamin D (Ergocalciferol) 59620 UNIT Oral CapsuleIndications :Vitamin D deficiency Take [...] Telephone Encounter - Miri Herzog RN - 04/21/2023 12:25 PM EDT Follow-up Routine Attempted Phone Call First Attempt Call Outcome Left Voicemail/Message Plan To attempt another outreach Miri Herzog RN Kidney Transitions Specialist CKD Depilatory Painter documented in this encounter Plan of Treatment Upcoming Encounters Date Type Specialty Care Team Description 04/29/2023 Office Visit Nephrology Dennis Safnord MD [address] [place] [address] 05/20/2023 Office Visit Family Medicine Robert Garza PA-C [address] [place] [phone] Health Maintenance Due Date Last Done Comments [...] the patient have Health Care Power of Pantograph Machine Set Up Operator? No Code Status History Code Status Date Activated Date Inactivated Comments Full Code 09/28/2018 11:48 PM 10/03/2018 4:20 PM This order reflects the patients wishes and were consensually agreed upon. Full Code 04/26/2016 12:06 PM 04/29/2016 11:05 PM Th is order reflects the patients wishes and were consensually agreed upon. Care Teams Tile Ditcher Relationship Specialty Start Date End Date Robert Garza PA-C [address] [place] [id number] PCP - General Physician Maintenance Mechanic 2Nd Shift 06/18/22 documented as of this encounter
--- OUTSIDE RECORDS SUMMARY | 2023-07-25 11:33 | External Medical Summary ---
Demographics Address [address] [place] [id number] Phone Unavailable Phone Unavailable Preferred Language Unknown Marital Status Unknown Anabaptism Affiliation Unknown Race Unknown Ethnic Group Unknown Author Name Unknown Address Unknown Organization [facility] - [address] [place] [address] Laboratory Report Ordering Provider Test Date Status LAZ MATTHEWS 05/08/2023 09:10:16 Final Observation Date Value Abnormality Reference (Units ) Status Hep C Ab 05/08/2023 09:10:16 Negative Negative Final Further HCV quantitative winston ting not performed per protocol. Performing Location [facility] - [address] [place] [address]
--- OUTSIDE RECORDS SUMMARY | 2023-07-25 11:33 | External Medical Summary ---
Demographics Address [address] [place] [address] Phone Unavailable Phone Unavailable Preferred Language Unknown Marital Status Unknown Mormon Affiliation Unknown Race Unknown Ethnic Group Unknown Author Name Unknown Address Unknown Organization K[facility] - [address] [facility] [address] Laboratory Report Ordering Provider Test Date Status MARKOS TORRES 05/08/2023 09:10:16 Final Observation Date Value Abnormality Reference (Units ) Status BUN 05/08/2023 09:10:16 90 Above high normal 6-20 (mg/dL) Final Creatinine 05/08/2023 09:10:16 11.4 Above high normal 0.5-1.0 (mg/dL) Final Glomerular filtration rate/1.73 sq M.predicted [Volume Rate/Area] in Serum, Plasma or Blood by Creatinine-based formula (CKD-EPI) 05/08/2023 09:10:16 4 Below low normal >=60 (mL/min) Final eGFR is calculated based on the CKD-EPI 2020 equation SODIUM 05/08/2023 09:10:16 135 135-146 (m mol/L) Final Potassium 05/08/2023 09:10:16 4.9 3.5-5.1 (m mol/L) Final Cl 05/08/2023 09:10:16 101 98-107 (mm ol/L) Final CO2 05/08/2023 09:10:16 17 Below low normal 22- 32 (mmol/L) Final Anion gap 05/08/2023 09:10:16 17 Above high normal 7- 15 (mmol/L) Final Glucose 05/08/2023 09:10:16 139 Above high normal 70 -120 (mg/dL) Final Calcium 05/08/2023 09:10:16 8.3 Below low normal 8.4 -10.2 (mg/dL) Final Performing Location [facility] [place] - [address] [place] [address]
--- OUTSIDE RECORDS SUMMARY | 2023-07-25 11:33 | External Medical Summary ---
Demographics Address [address] [place] [address] Phone Unavailable Phone Unavailable Preferred Language Unknown Marital Status Unknown Jew Affiliation Unknown Race Unknown Ethnic Group Unknown Author Name Unknown Address Unknown Organization K01:[facility] - [address] [place] [address] Laboratory Report Ordering Provider Test Date Status LAZ MATTHEWS 05/08/2023 09:10:16 Final Observation Date Value Abnormality Reference (Units ) Status Hepatitis B virus core Ab [Presence] in Serum 05/08/2023 09:10:16 Negative Negative Final Performing Location [facility] [address] [facility] [address]
--- OUTSIDE RECORDS SUMMARY | 2023-07-25 11:33 | External Medical Summary ---
Demographics Address [address] [place] [address] Phone Unavailable Phone Unavailable Preferred Language Unknown Marital Status Unknown Rastafari Affiliation Unknown Race Unknown Ethnic Group Unknown Author Name Unknown Address Unknown Organization : Laboratory Report Ordering Provider Test Date Status DEMETRA ESCOBAR 04/28/2023 08:33:34 Correction Observation Date Value Abnormality Reference (Units ) Status REFERENCE LAB SCANNED REPORT 04/28/2023 08:33:34 See Scanned Report Final Performing Location
--- OUTSIDE RECORDS SUMMARY | 2023-07-25 11:33 | External Medical Summary | Summary of Care ---
Author Name Unknown Organization [facility] Address [address] [place] [address] Phone [phone] Care Team Providers Care Spot Man Name Role Phone Robert Garza PA-C Primary Care Provider +1 [phone] Reason for Visit * Reason Onset Date Comments Outpatient Testing 05/06/2023 Encounter Details Date Type Department Care Team Description 05/06/2023 Telephone NephrologyMoris [address] [place] [address] Dennis Sanford MD 200 [facility] [place] [id number] Outpatient Testing Allergies Active Allergy Reactions Severity Noted Date Comments Amoxicillin-Pot Clavulanate Hives 04/26/2016 Pollen Other (Please comment) Medium 04/12/2012 Seasonal allergies: Itchy watery eyes, sneezes. 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 documented in this encounter Plan of Treatment Upcoming Encounters Date Type Specialty Care Team Description 05/15/2023 Hospital Encounter Surgery Donnie Elena MD [address] [place] [address] 05/15/2023 Surgery Surgery Donnie Elena MD [address] [place] [address] LAPAROSCOPIC INSERTION INTRAPERITONEAL CANNULA OR CATHETER 05/18/2023 Scheduled Telephone General Surgery Nurse Baldo Gen Surg Ceci Sultana RN [address] [place] [address] 05/20/2023 Office Visit Family Medicine Robert Garza PA-Mirza [address] [place] [address] 06/01/2023 Office Visit Nephrology Dennis Sanford MD 200 [facility] [place] [address] 07/29/2023 Telemedicine Transplant Surgery Coordinator, Transplant Nurse [address] [place] [address] [place] [address] 07/29/2023 Office Visit Transplant Clinic Alexei Ross, ARON [address] [place] [address] Stephanie Milton, TACTICAL DEBRIEFER [address] [place] [address] 07/29/2023 Laboratory Laboratory [place], Lab B[address]a [address] [place] [address] Scheduled Orders Name Type Priority Associated Diagnoses Orde r Schedule XR CHEST 2 VIEWS Medical Imaging Routine Chronic kidney disease, stage 5 (HCC) Expected: 05/07/2023 (Approximate), Expires: 06/06/2024 HEPATITIS B SURFACE ANTIGEN Lab Routine Chronic kidney disease, stage 5 (HCC) Expected: 05/07/2023 (Approximate), Expires: 05/06/2024 HEPATITIS B SURFACE ANTIBODY Lab Routine Chronic kidney disease, stage 5 (HCC) Expected: 05/07/2023 (Approximate), Expires: 05/06/2024 HEPATITIS B CORE ANTIBODY IGM Lab Routine Chronic kidney disease, stage 5 (HCC) Expected: 05/07/2023 (Approximate), Expires: 05/06/2024 HEPATITIS B CORE ANTIBODIES IGG AND IGM Lab Routine Chronic kidney disease, stage 5 (HCC) Expected: 05/07/2023 (Approximate), Expires: 05/06/2024 HEPATITIS C ANTIBODY SCREEN WITH PROGRESSION TO HEPATITIS C RNA QUANTITATIVE Lab Routine Chronic kidney disease, stage 5 (HCC) Expected: 05/07/2023 (Approximate), Expires: 05/06/2024 Scheduled Procedures Name Priority Associated Diagnoses Date/Ti [...] the patient have Health Care Power of Recruiting Specialist? No Code Status History Code Status Date Activated Date Inactivated Comments Full Code 09/28/2018 11:48 PM 10/03/2018 4:20 PM This order reflects the patients wishes and were consensually agreed upon. Full Code 04/26/2016 12:06 PM 04/29/2016 11:05 PM Th is order reflects the patients wishes and were consensually agreed upon. Care Teams Spot Man Relationship Specialty Start Date End Date Robert Garza PA-C [address] [place] [address] PCP - General Physician Kitchen Cleaner 06/18/22 documented as of this encounter
--- OUTSIDE RECORDS SUMMARY | 2023-07-25 11:33 | External Medical Summary | Summary of Care ---
Author Name Unknown Organization [facility] Address [address] [place] [address] Phone [phone] Care Team Providers Care Senior Java Engineer Name Role Phone Robert Garza PA-C Primary Care Provider [phone] [phone] Reason for Visit * Reason Comments case management CKD CM progress note Encounter Details Date Type Department Care Team Description 04/08/2023 Mechanical Striper Care Coordination [address], [place] [id number] Miri Herzog business analyst ecommerce kidney disease, stage 5 (HCC)*; CKD, patient preferred treatment modality peritoneal dialysis Allergies Active Allergy Reactions Severity Noted Date Comments Amoxicillin-Pot Clavulanate Hives 04/26/2016 Pollen Other (Please comment) Medium 04/12/2012 Seasonal allergies: Itchy watery eyes, sneezes. 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 Follow up: 1-2 weeks, patient verbalizes understanding to call office if questions or concerns arise. Miri Herzog RN Kidney Transitions Specialist Nephrology Case Management documented in this encounter Plan of Treatment Upcoming Encounters Date Type Specialty Care Team Description 04/29/2023 Office Visit Nephrology Dennis Sanford MD [address] [place] [address] 05/20/2023 Office Visit Family Medicine Robert Garza PA-C [address] [place] [address] Health Maintenance Due Date Last Done Comments [...] - Td or Tdap) 10/03/2028 10/03/2018, 02/18/2016 Hepatitis C Screening Completed 07/22/2022 , 03/17/2018, 09/18/2015 Gonorrhea / Chlamydia Screen Discontinued 07/29/2022, 08/02/2019, [...] the patient have Health Care Power of Teacher Aide Clerical? No Code Status History Code Status Date Activated Date Inactivated Comments Full Code 09/28/2018 11:48 PM 10/03/2018 4:20 PM This order reflects the patients wishes and were consensually agreed upon. Full Code 04/26/2016 12:06 PM 04/29/2016 11:05 PM Th is order reflects the patients wishes and were consensually agreed upon. Care Teams Senior Java Engineer Relationship Specialty Start Date End Date Robert Garza PA-C [address] [place], [place] [address] [place] [address] PCP - General Physician Mathematical Statistician 06/18/22 documented as of this encounter
--- OUTSIDE RECORDS SUMMARY | 2023-07-25 11:33 | External Medical Summary | Summary of Care ---
Author Name Unknown Organization [facility] Address [address] [place] [address] Phone [phone] Care Team Providers Care Pet Sitting Name Role Phone Robert Garza PA-C Primary Care Provider [phone] [phone] Reason for Visit * Reason Comments Outpatient Testing Encounter Details Date Type Department Care Team Description 04/28/2023 Laboratory [facility] [id number] [facility] [address] [address] Pre-transplant evaluation for ESRD (end stage renal disease); End stage renal disease (HCC) Allergies Active Allergy Reactions Severity Noted Date Comments Amoxicillin-Pot Clavulanate Hives 04/26/2016 Pollen Other (Please comment) Medium 04/12/2012 Seasonal allergies: Itchy watery eyes, sneezes. 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 08/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 Nephrotic range proteinuria 08/03/2019 Nephrotic syndrome 11/13/2017 Overview: See 11/2015 note documented as of this encounter (statuses as of 04/28/2023) Resolved Problems Problem Noted Date Resolved Date [...] as of this encounter (statuses as of 04/28/2023) Immunizations Name Administration Dates Next Due SEASONAL [...] Office Visit Nephrology Dennis Sanford MD [address] [place] [address] 05/20/2023 Office Visit Family Medicine Robert Garza PA-C [address] [place] [address] Pending Results Name Type Priority Associated Diagnoses Date /Time MONTHLY HLA CLASS 1 & 2 W/REFLEX, SOLID ORGAN TRANSPLANT Lab STAT Pre-transplant evaluation for ESRD (end stage renal disease) 04/28/2023 8:33 AM EDT RENAL FUNCTION PANEL Lab Routine End stage renal disease (HCC) 04/28/2023 8:33 AM EDT Health Maintenance Due Date Last [...] stage renal disease) Other specified pre-operative examination End stage renal disease (HCC) End stage renal disease documented in this encounter Advance Directives Latest [...] the patient have Health Care Power of Upholstery Covers Inspector? No Code Status History Code Status Date Activated Date Inactivated Comments Full Code 09/28/2018 11:48 PM 10/03/2018 4:20 PM This order reflects the patients wishes and were consensually agreed upon. Full Code 04/26/2016 12:06 PM 04/29/2016 11:05 PM Th is order reflects the patients wishes and were consensually agreed upon. Care Teams Pet Sitting Relationship Specialty Start Date End Date Robert Garza PA-C [address] [place] [address] PCP - General Physician Superintendent Police 06/18/22 documented as of this encounter
--- OUTSIDE RECORDS SUMMARY | 2023-07-25 11:33 | External Medical Summary | Summary of Care ---
Author Name Unknown Organization [facility] Address [address] [place] [address] Phone [phone] Care Team Providers Care Grain Merchandiser Name Role Phone Robert Garza PA-C Primary Care Provider +1 [phone] Reason for Visit * Reason Onset Date Comments Appointment 05/01/2023 Encounter Details Date Type Department Care Team Description 05/01/2023 Telephone NephrologyMoris [address] [facility] [place] [address] Dennis Sanford MD 200 [place] [address] Appointment Allergies Active Allergy Reactions Severity Noted Date [...] Tablet 2 08/29/2022 Active Vitamin D (Ergocalciferol) 13405 UNIT Oral CapsuleIndications :Vitamin D deficiency Take [...] Telephone Encounter - Meghan Parker RN - 05/01/2023 9:43 AM EDT Pt scheduled to see Dr Elena on 05/05. * Telephone Encounter - Meghan Parker RN - 05/01/2023 9:43 AM EDT ----- Message from Yaneth Bess RN sent at 04/30/2023 3:30 PM EDT ----- Regarding: RE: appt I sent a teams to the assembler surgical garment, Susana. She will look at it BENITO. ----- Message ----- From: Dennis Sanford MD Sent: 04/30/2023 2:32 PM EDT To: Yaneth Bess RN, # Subject: appt Can we make sure she makes appt with Dr Elena at [facility] for PD cath surgery appt. Has been delaying this for a while now. Dennis Sanford MD documented in this encounter Plan of Treatment Upcoming Encounters Date Type Specialty Care Team Description 05/05/2023 Office Visit General Surgery Donnie Elena MD [address] [place] [address] 05/15/2023 Hospital Encounter Surgery Donnie Elena MD [address] [place] [address] 05/15/2023 Surgery Surgery Donnie Elena MD [address] [place] [address] LAPAROSCOPIC INSERTION INTRAPERITONEAL CANNULA OR CATHETER 05/18/2023 Scheduled Telephone General Surgery Nurse Baldo Gen Surg Ceci Sultana RN [address] [place] [address] 05/20/2023 Office Visit Family Medicine Robert Garza PA-C [address] [place] [address] 06/01/2023 Office Visit Nephrology Dennis Sanford MD [address] [place] [address] Scheduled Procedures Name Priority Associated Diagnoses Date/Ti [...] the patient have Health Care Power of Dental Tech? No Code Status History Code Status Date Activated Date Inactivated Comments Full Code 09/28/2018 11:48 PM 10/03/2018 4:20 PM This order reflects the patients wishes and were consensually agreed upon. Full Code 04/26/2016 12:06 PM 04/29/2016 11:05 PM Th is order reflects the patients wishes and were consensually agreed upon. Care Teams Grain Merchandiser Relationship Specialty Start Date End Date Robert Garza PA-C [address] [place] [address] PCP - General Physician Engraver Hand Hard Metals 06/18/22 documented as of this encounter
--- OUTSIDE RECORDS SUMMARY | 2023-07-25 11:33 | External Medical Summary | Summary of Care ---
Author Name Unknown Organization [facility] Address [address] [place] [address] Phone [phone] Care Team Providers Care Milk Inspector Name Role Phone Robert Garza PA-C Primary Care Provider [phone] [phone] Reason for Visit * Reason Comments Medication Refill Encounter Details Date Type Department Care Team Description [facility] [address] [place] [address] Dennis Sanford MD 200 [place] [address] Iron deficiency anemia, unspecified iron deficiency anemia type Allergies Active Allergy Reactions Severity Noted Date [...] AND EVENING MEALS. 60 Tablet 11 05/09/2022 3 Active Sodium Bicarbonate 650 MG Oral TabletIndications :CKD (chronic kidney disease) stage 5, GFR less than 15 ml/min (HCC),Metabolic acidosis Take 1 Tablet by mouth in the morning and 1 Tablet before bedtime. 180 Tablet 2 08/29/2022 Active Vitamin D (Ergocalciferol) 89136 UNIT Oral CapsuleIndication s:Vitamin D deficiency Take 50,000 Units by mouth [...] Acetate (Phos Binder) 667 MG Oral Capsule (Phoslo)Indicatio ns:Chronic kidney disease, stage 5 (HCC) Take 2 Capsules by mouth in the morning and 2 Capsules at noon and 2 Capsules in the evening. Take with meals. 180 Capsule 1 03/24/2023 Active Ferrous Sulfate 325 (65 Fe) MG Oral Tablet (FeroSul)Indicati ons:Iron deficiency anemia, unspecified iron deficiency anemia type Take 1 Tablet by mouth in the morning and 1 Tablet before bedtime. 180 Tablet 2 04/21/2023 Active Ferrous Sulfate 325 (65 Fe) MG Oral Tablet (Feosol)Indicatio ns:Iron deficiency anemia, unspecified iron deficiency anemia type Take 1 Tablet by mouth in the morning and 1 Tablet before bedtime. 180 Tablet 2 07/23/2022 3 Discontinue d(Refill) documented as of this encounter (statuses as [...] encounter Miscellaneous Notes * Telephone Encounter - Jayne Lucas MD - 04/21/2023 5:29 PM EDTSigned Prescriptions: Disp Refills Ferrous Sulfate 325 (65 Fe) MG Oral Tablet*180 Ta*2 Sig: Take 1 Tablet by mouth in the morning and 1 Tablet before bedtime. Authorizing Provider: JAYNE LUCAS * Telephone Encounter - Rosario Delarosa LPN - 04/21/2023 4:37 PM EDTPending Prescriptions: Disp Refills Ferrous Sulfate 325 (65 Fe) MG Oral Tablet*180 Ta*2 Sig: Take 1 Tablet by mouth in the morning and 1 Tablet before bedtime. * Telephone Encounter - Rosario Delarosa LPN - 04/21/2023 3:52 PM EDT Please review and approve medication refill request. 05/15/2022 (in office), 06/25/2022 (telemedicine) documented in this encounter Plan of Treatment Upcoming Encounters Date Type Specialty Care Team Description 04/29/2023 Office Visit Nephrology Dennis Sanford MD 200 [place] [address] 05/20/2023 Office Visit Family Medicine Robert Garza PA-C [address] [place] [address] Health Maintenance Due Date Last Done Comments [...] as of this encounter Visit Diagnoses Diagnosis Iron deficiency anemia, unspecified iron deficiency anemia type documented in this encounter Advance Directives Latest [...] the patient have Health Care Power of Commuter Pilot? No Code Status History Code Status Date Activated Date Inactivated Comments Full Code 09/28/2018 11:48 PM 10/03/2018 4:20 PM This order reflects the patients wishes and were consensually agreed upon. Full Code 04/26/2016 12:06 PM 04/29/2016 11:05 PM Th is order reflects the patients wishes and were consensually agreed upon. Care Teams Milk Inspector Relationship Specialty Start Date End Date Robert Garza PA-C [address] [place] [address] PCP - General Physician Child Care Sitter 06/18/22 documented as of this encounter
--- OUTSIDE RECORDS SUMMARY | 2023-07-25 11:33 | External Medical Summary | Summary of Care ---
Author Name Unknown Organization [facility] Address [address] [place] [address] Phone [phone] Care Team Providers Care Administrative Services Manager Name Role Phone Robert Garza PA-C Primary Care Provider +1 [phone] Reason for Visit * Reason Comments Outpatient Testing Encounter Details Date Type Department Care Team Description 04/28/2023 Laboratory [facility] [phone] [facility] [address] [address] Pre-transplant evaluation for ESRD (end stage renal [...] Tablet 2 08/29/2022 Active Vitamin D (Ergocalciferol) 44536 UNIT Oral CapsuleIndications :Vitamin D deficiency Take [...] Office Visit Nephrology Dennis Sanford MD [address] [place] [address] 05/20/2023 Office Visit Family Medicine Robert Garza PA-C [address] [place] [address] Pending Results Name Type Priority Associated Diagnoses [...] the patient have Health Care Power of Reporting Coordinator? No Code Status History Code Status Date Activated Date Inactivated Comments Full Code 09/28/2018 11:48 PM 10/03/2018 4:20 PM This order reflects the patients wishes and were consensually agreed upon. Full Code 04/26/2016 12:06 PM 04/29/2016 11:05 PM Th is order reflects the patients wishes and were consensually agreed upon. Care Teams Administrative Services Manager Relationship Specialty Start Date End Date Robert Garza PA-C [address] [place] [address] PCP - General Physician Supervisory Investigative Specialist 06/18/22 documented as of this encounter
--- OUTSIDE RECORDS SUMMARY | 2023-07-25 11:33 | External Medical Summary | Summary of Care ---
Author Name Unknown Organization [facility] Address [address] [place] [address] Phone [phone] Care Team Providers Care Pharmacy Cashier Name Role Phone Robert Garza PA-C Primary Care Provider +1 -[phone] Reason for Visit * Reason Comments Outpatient Testing Encounter Details Date Type Department Care Team Description 05/08/2023 Laboratory [facility] [phone] [facility] [address] [address] Chronic kidney disease, stage 5 (HCC); Pre-op testing Allergies Active Allergy Reactions Severity Noted Date Comments Amoxicillin-Pot Clavulanate Hives 04/26/2016 Pollen Other (Please comment) Medium 04/12/2012 Seasonal allergies: Itchy watery eyes, sneezes. 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 08/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 Nephrotic range proteinuria 08/03/2019 Nephrotic syndrome 11/13/2017 Overview: See 11/2015 note documented as of this encounter (statuses as of 05/08/2023) Resolved Problems Problem Noted Date Resolved Date [...] as of this encounter (statuses as of 05/08/2023) Immunizations Name Administration Dates Next Due SEASONAL [...] [address] [place] [id number] 05/15/2023 Surgery Surgery Donnie Elena MD [address] [place] [address] LAPAROSCOPIC INSERTION INTRAPERITONEAL CANNULA OR CATHETER 05/18/2023 Scheduled Telephone General Surgery Nurse Baldo Gen Surg Ceci Sultana RN [address] [facility] [address] [place] [address] 05/20/2023 Office Visit Family Medicine Robert Garza PA-C [address] [place] [address] 06/01/2023 Office Visit Nephrology Dennis Sanford MD [address] [place] [address] 07/29/2023 Telemedicine Transplant Surgery Coordinator, Transplant Nurse [address] [place] [address] [place] [address] 07/29/2023 Office Visit Transplant Clinic Alexei Ross, ARON [address] [place] [address] Stephanie Milton, CUSTOMER SUPPORT PROFESSIONAL [address] [place] [address] 07/29/2023 Laboratory Laboratory [facility] B1a [address] [place] [address] Pending Results Name Type Priority Associated Diagnoses Date /Time CBC Lab Routine Chronic kidney disease, stage 5 (HCC) Pre-op testing 05/08/2023 9:10 AM EDT BASIC METABOLIC PANEL Lab Routine Chronic kidney disease, stage 5 (HCC) Pre-op testing 05/08/2023 9:10 AM EDT HEPATITIS B SURFACE ANTIGEN Lab Routine Chronic kidney disease, stage 5 (HCC) 05/08/2023 9:10 AM EDT HEPATITIS B SURFACE ANTIBODY Lab Routine Chronic kidney disease, stage 5 (HCC) 05/08/2023 9:10 AM EDT HEPATITIS B CORE ANTIBODY IGM Lab Routine Chronic kidney disease, stage 5 (HCC) 05/08/2023 9:10 AM EDT HEPATITIS B CORE ANTIBODIES IGG AND IGM Lab Routine Chronic kidney disease, stage 5 (HCC) 05/08/2023 9:10 AM EDT HEPATITIS C ANTIBODY SCREEN WITH PROGRESSION TO HEPATITIS C RNA QUANTITATIVE Lab Routine Chronic kidney disease, stage 5 (HCC) 05/08/2023 9:10 AM EDT HEPATITIS C ANTIBODY Lab Routine Chronic kidney disease, stage 5 (HCC) 05/08/2023 9:10 AM EDT HEPATITIS C RNA ADD ON Lab Routine Chronic kidney disease, stage 5 (HCC) 05/08/2023 9:10 AM EDT Scheduled Procedures Name Priority Associated Diagnoses Date/Ti [...] Diagnoses Diagnosis Chronic kidney disease, stage 5 (HCC) Pre-op testing Preoperative examination, unspecified FSGS (focal [...] the patient have Health Care Power of Auto Mechanic Apprentice? No Code Status History Code Status Date Activated Date Inactivated Comments Full Code 09/28/2018 11:48 PM 10/03/2018 4:20 PM This order reflects the patients wishes and were consensually agreed upon. Full Code 04/26/2016 12:06 PM 04/29/2016 11:05 PM Th is order reflects the patients wishes and were consensually agreed upon. Care Teams Pharmacy Cashier Relationship Specialty Start Date End Date Robert Garza PA-C [address] [place] [address] PCP - General Physician Harp Repairer 06/18/22 documented as of this encounter
--- OUTSIDE RECORDS SUMMARY | 2023-07-25 11:34 | External Medical Summary | Summary of Care ---
Author Name Unknown Organization [facility] Address [address] [place] [address] Phone [phone] Care Team Providers Care House Fellow Name Role Phone Robert Garza PA-C Primary Care Provider [phone] Reason for Referral * Evaluate & Treat - Unlimited Visits (Within 10 days (routine)) - Authorized Specialty Diagnoses / Procedures Referred By Carol colon Referred To Contact General Surgery Diagnoses Chronic kidney disease, stage 5 (HCC) Dennis Sanford MD [address] [place] [address] Donnie Elena MD [facility] [address] [place] [address] Referral ID Status Reason Start Date Expiration Date Visits Requested Visits Authorized [id number] Authorized Specialty Services Required 03/24/2023 999 999 Question Answer Referral Priority Within 10 days (routine) What condition is the patient being seen for? General Surgery Conditions - PD referral What condition is the patient being seen for? All other conditions - Stage 5 ckd Comments Pt is on transplant list but Dr Sanford feels she will need dialysis prior to transplant. She is requesting PD. Please schedule for evaluation and possible surgery. Reason for Visit * Reason Onset Date Comments Test Results 03/24/2023 Encounter Details Date Type Department Care Team Description 03/24/2023 Telephone Nephrology, Moris Berry [address] [place] [address] Dennis Sanford MD [address] [place], [place] [address] Test Results Allergies Active Allergy Reactions Severity Noted Date Comments Amoxicillin-Pot Clavulanate Hives 04/26/2016 Pollen Other (Please comment) Medium 04/12/2012 Seasonal allergies: Itchy watery eyes, sneezes. documented as of this encounter (statuses as of 03/24/2023) Medications Medication Sig Dispensed Refills Start Date End Date Status Carvedilol 12.5 MG Oral Tablet (Coreg) TAKE 1 TABLET BY MOUTH 2 TIMES A DAY WITH MORNING AND EVENING MEALS. 60 Tablet 11 05/09/2022 3 Active Ferrous Sulfate 325 (65 Fe) MG Oral Tablet (Feosol)Indicatio ns:Iron deficiency anemia, unspecified iron deficiency anemia type Take 1 Tablet by mouth in the morning and 1 Tablet before bedtime. 180 Tablet 2 07/23/2022 Active Sodium Bicarbonate 650 MG Oral TabletIndications :CKD (chronic kidney disease) stage 5, GFR less than 15 ml/min ([facility]),Metabolic acidosis Take 1 Tablet by mouth in the morning and 1 Tablet before bedtime. 180 Tablet 2 08/29/2022 Active Vitamin D (Ergocalciferol) 10657 UNIT Oral CapsuleIndication s:Vitamin D deficiency Take [...] with meals. 180 Capsule 1 03/24/2023 Active Calcium Acetate (Phos Binder) 667 MG Oral Capsule (Phoslo) Take 1 Capsule by mouth in the morning and 1 Capsule at noon and 1 Capsule in the evening. Take with meals. 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 Order pended for RX due to increased dose. Aware thatDr Sanford is requesting surgical consult for PD cath referral. Pt aware that they will be in contact to set up appointment. * Telephone Encounter - Meghan Parker RN - 03/24/2023 11:46 AM EDT ----- Message from Dennis Sanford MD sent at 03/24/2023 10:49 AM EDT ----- Dropping kidney function but still no major symptoms of ESRD. Benito is getting her so double the dose of Phoslo. Unfortunately her sister was not a match for transplant so she will need dialysis before transplant. At this point I want her to see Dr Lawrence Elena--Surgeon at [facility] for Placement of PD cath. ( Same surgeon as her sister's mother in law) Between the appt and the surgery and then 2 weeks after surgery it will take another 1-2 month before she will be ready for dialysis. So I do want the referral made. documented in this encounter Plan of Treatment Upcoming Encounters Date Type Specialty Care Team Description 05/20/2023 Office Visit Family Medicine Robert Garza PA-C [address] [place] [address] 08/27/2023 Office Visit Nephrology Dennis Sanford MD [address] [facility] [place] [address] Scheduled Referrals Name Type Priority Associated Diagnoses Orde r Schedule SURGERY REFERRAL OP Referral Within 10 da ys (routine) Chronic kidney disease, stage 5 (HCC) Ordered: 03/24/2023 Health Maintenance Due Date Last Done Comments Hepatitis B (1 of 3 - 3-dose series) 1996 COVID-19 Vaccine (#1) 1996 Pneumococcal Vaccine: Pediatrics (0 to 5 Years) and At-Risk Patients (6 to 64 Years) (1 - PCV) 01/03/2002 Depression Screening, Annual for Pts 12 and Over 08/02/2020 08/02/2019 Influenza Vaccine (FLU shot) (#1) [...] the patient have Health Care Power of Motion Picture Film Examiner? No Code Status History Code Status Date Activated Date Inactivated Comments Full Code 09/28/2018 11:48 PM 10/03/2018 4:20 PM This order reflects the patients wishes and were consensually agreed upon. Full Code 04/26/2016 12:06 PM 04/29/2016 11:05 PM Th is order reflects the patients wishes and were consensually agreed upon. Care Teams House Fellow Relationship Specialty Start Date End Date Robert Garza PA-C [address] [place] [address] PCP - General Physician Railroad Construction Director 06/18/22 documented as of this encounter
--- OUTSIDE RECORDS SUMMARY | 2023-07-25 11:34 | External Medical Summary | Summary of Care ---
Author Name Unknown Organization [facility] Address [address] [place] [address] Phone [phone] Care Team Providers Care Technical Marketing Consultant Name Role Phone Robert Garza PA-C Primary Care Provider [phone] Reason for Visit * Reason Onset Date Comments Appointment 04/03/2023 Encounter Details Date Type Department Care Team Description 04/03/2023 Telephone [facility] [place] [address] Dennis Sanford MD 200 [facility] [place] [address] Appointment Allergies Active Allergy Reactions Severity Noted Date Comments Amoxicillin-Pot Clavulanate Hives 04/26/2016 Pollen Other (Please comment) Medium 04/12/2012 Seasonal allergies: Itchy watery eyes, sneezes. 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 (15 years old or older) No 10/20/20 22 Cognitive Status Response Date of Assessm ent Because of a physical, menta l, or emotional condition, do you have serious difficulty concentrating, remembering, or making decisions? (5 years old or older No 05/08/2022 documented as of this encounter Miscellaneous Notes * Telephone Encounter - HEIDE Puentes - 04/03/2023 1:51 PM EDT 04/03 called patient, left message. Trying to get patient scheduled sooner with Dr. Sanford in [place] in April. Openings on Apr 29. documented in this encounter Plan of Treatment Upcoming Encounters Date Type Specialty Care Team Description 05/20/2023 Office Visit Family Medicine Robert Garza PA-C [address] [place] [address] 08/27/2023 Office Visit Nephrology Dennis Sanford MD [address] [place] [address] Health Maintenance Due Date Last Done Comments [...] the patient have Health Care Power of Porcelain Slusher? No Code Status History Code Status Date Activated Date Inactivated Comments Full Code 09/28/2018 11:48 PM 10/03/2018 4:20 PM This order reflects the patients wishes and were consensually agreed upon. Full Code 04/26/2016 12:06 PM 04/29/2016 11:05 PM Th is order reflects the patients wishes and were consensually agreed upon. Care Teams Technical Marketing Consultant Relationship Specialty Start Date End Date Robert Garza PA-C [address] [place] [address] PCP - General Physician Walking Dragline Operator 06/18/22 documented as of this encounter
--- OUTSIDE RECORDS SUMMARY | 2023-07-25 11:34 | External Medical Summary ---
Demographics Address [address] [place] [address] Phone Unavailable Phone Unavailable Preferred Language Unknown Marital Status Unknown Judaism Affiliation Unknown Race Unknown Ethnic Group Unknown Author Name Unknown Address Unknown Organization K01:[facility] [place] [facility] [place] [address] [facility] [address] Laboratory Report Ordering Provider Test Date Status CARLO ROWLAND 03/20/2023 08:39:32 Final Observation Date Value Abnormality Reference (Units ) Status WBC, Total 03/20/2023 08:39:32 6.75 4.00-10.80 (K/uL) Final RBC 03/20/2023 08:39:32 3.68 3.85-5.15 (M/uL) Final Hemoglobin 03/20/2023 08:39:32 11.0 Below low normal 12.0-15.3 (g/dL) Final HCT 03/20/2023 08:39:32 33.4 Below low normal 36.0-45.2 (%) Final MCV 03/20/2023 08:39:32 90.8 81.5-97.5 (fL) Final MCH 03/20/2023 08:39:32 29.9 27.0-34.0 (pg) Final MCHC 03/20/2023 08:39:32 32.9 32.0-36.0 (g/dL) Final RDW 03/20/2023 08:39:32 12.3 11.5-15.5 (%) Final Platelets 03/20/2023 08:39:32 166 140-400 (K/uL) Final MPV 03/20/2023 08:39:32 11.4 6.6-11.1 (fL) Final Nucleated erythrocytes/100 leukocytes [Ratio] in Blood by Automated count 03/20/2023 08:39:32 0 <=0 (/100 WBCs) Final Performing Location LAB[facility] [place] [address] [place] [address]
--- OUTSIDE RECORDS SUMMARY | 2023-07-25 11:34 | External Medical Summary | Summary of Care ---
Author Name Unknown Organization [facility] Address [address] [place] [address] Phone [phone] Care Team Providers Care Conventions Reservationist Name Role Phone Robert Garza PA-C Primary Care Provider [phone] Reason for Visit * Reason Onset Date Comments Outpatient Testing 03/19/2023 Encounter Details Date Type Department Care Team Description 03/19/2023 Telephone NephrologyMoris [address] [place] [address] Dennis Sanford MD 200 [facility] [place] [phone] Outpatient Testing Allergies Active Allergy Reactions Severity Noted Date Comments Amoxicillin-Pot Clavulanate Hives 04/26/2016 Pollen Other (Please comment) Medium 04/12/2012 Seasonal allergies: Itchy watery eyes, sneezes. documented as of this encounter (statuses as of 03/19/2023) Medications Medication Sig Dispensed Refills Start Date End Date Status Carvedilol 12.5 MG Oral Tablet (Coreg) TAKE 1 TABLET BY MOUTH 2 TIMES A DAY WITH MORNING AND EVENING MEALS. 60 Tablet 11 05/09/2022 05/09/2023 Active Ferrous Sulfate 325 (65 Fe) MG Oral Tablet (Feosol)Indications :Iron deficiency anemia, unspecified iron deficiency anemia type Take 1 Tablet by mouth in the morning and 1 Tablet before bedtime. 180 Tablet 2 07/23/2022 Active Sodium Bicarbonate 650 MG Oral TabletIndications:C KD (chronic kidney disease) stage 5, GFR less than 15 ml/min (HCC),Metabolic acidosis Take 1 Tablet by mouth in the morning and 1 Tablet before bedtime. 180 Tablet 2 08/29/2022 Active Vitamin D (Ergocalciferol) 71785 UNIT Oral CapsuleIndications: Vitamin D deficiency Take [...] Take with meals. 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 That is way too late. She needs seen within 2 months with monthly renal panel. Dennis Sanford MD ----- Message ----- From: Yudelka Galindo RN Sent: 03/19/2023 2:43 PM EDT To: Dennis Sanford MD, [address] Just wanted to update you on Radha's sister's crossmatch. Unfortunately the crossmatch was incompatible. I am scheduling her for evaluation for kidney exchange, but you know with that there is no way to predict how long it will take to find a compatible match. Thanks, Yudelka documented in this encounter Plan of Treatment Upcoming Encounters Date Type Specialty Care Team Description 05/20/2023 Office Visit Family Medicine Robert Garza PA-C [address] [place] [address] 08/27/2023 Office Visit Nephrology Dennis Sanford MD 200 [place] [address] Scheduled Orders Name Type Priority Associated Diagnoses Orde r Schedule RENAL FUNCTION PANEL Lab Routine End stage renal disease (HCC) Every Month for 12 Occurrences starting 03/19/2023 until 03/19/2024 Health Maintenance Due Date Last Done Comments [...] as of this encounter Visit Diagnoses Diagnosis End stage renal disease (HCC)- Primary End stage renal disease documented in this [...] patient have Health Care Power of Manager Furniture? No Code Status History Code Status Date Activated Date Inactivated Comments Full Code 09/28/2018 11:48 PM 10/03/2018 4:20 PM This order reflects the patients wishes and were consensually agreed upon. Full Code 04/26/2016 12:06 PM 04/29/2016 11:05 PM Th is order reflects the patients wishes and were consensually agreed upon. Care Teams Conventions Reservationist Relationship Specialty Start Date End Date Robert Garza PA-C [address] [place] [address] PCP - General Physician Kiss Setter Hand 06/18/22 documented as of this encounter
--- OUTSIDE RECORDS SUMMARY | 2023-07-25 11:34 | External Medical Summary | Summary of Care ---
Author Name Unknown Organization [facility] Address [address] [place] [address] Phone [phone] Support Name Relationship Address Phone Agnieszka Lane Mother Unknown Yudleka Lane Grandparent Unknown Bryce [place] Emergency Contact [address] [place] [address] Care Team Providers Care Fitter Machinist Name Role Phone Robert Garza PA-C Primary Care Provider [phone] Reason for Visit * Reason Comments Outpatient Testing Encounter Details Date Type Department Care Team Description 03/20/2023 Laboratory [facility] [id number] [facility] [address] [address] Pre-transplant evaluation for ESRD (end stage renal disease); CKD (chronic kidney disease) stage 5, GFR less than 15 ml/min ([facility]); End stage renal disease (HCC) Allergies Active Allergy Reactions Severity Noted Date Comments Amoxicillin-Pot Clavulanate Hives 04/26/2016 Pollen Other (Please comment) Medium 04/12/2012 Seasonal allergies: Itchy watery eyes, sneezes. 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 08/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 Nephrotic range proteinuria 08/03/2019 Nephrotic syndrome 11/13/2017 Overview: See 11/2015 note documented as of this encounter (statuses as of 03/20/2023) Resolved Problems Problem Noted Date Resolved Date [...] as of this encounter (statuses as of 03/20/2023) Immunizations Name Administration Dates Next Due Seasonal [...] Office Visit Family Medicine Robert Garza PA-C [address] [place] [address] 08/27/2023 Office Visit Nephrology Dennis Sanford MD 200 [facility] [place] [address] Pending Results Name Type Priority Associated Diagnoses Date /Time MONTHLY HLA CLASS 1 & 2 W/REFLEX, SOLID ORGAN TRANSPLANT Lab STAT Pre-transplant evaluation for ESRD (end stage renal disease) 03/20/2023 8:39 AM EDT RENAL FUNCTION PANEL Lab Routine CKD (chronic kidney disease) stage 5, GFR less than 15 ml/min (HCC) 03/20/2023 8:39 AM EDT CBC Lab Routine CKD (chronic kidney disease) stage 5, GFR less than 15 ml/min (HCC) 03/20/2023 8:39 AM EDT Health Maintenance Due Date Last [...] stage renal disease) Other specified pre-operative examination CKD (chronic kidney disease) stage 5, GFR less than 15 ml/min (HCC) Chronic kidney disease, Stage V End stage renal disease (HCC) End stage [...] the patient have Health Care Power of Supply Chain Tech? No Code Status History Code Status Date Activated Date Inactivated Comments Full Code 09/28/2018 11:48 PM 10/03/2018 4:20 PM This order reflects the patients wishes and were consensually agreed upon. Full Code 04/26/2016 12:06 PM 04/29/2016 11:05 PM Th is order reflects the patients wishes and were consensually agreed upon. Care Teams Fitter Machinist Relationship Specialty Start Date End Date Robert Garza PA-C [address] [place] [phone] PCP - General Physician Bingo Floater 06/18/22 documented as of this encounter
--- OUTSIDE RECORDS SUMMARY | 2023-07-25 11:34 | External Medical Summary | Summary of Care ---
Author Name Unknown Organization [facility] Address [address] [place] [address] Phone [phone] Care Team Providers Care Rn Maternal Child Name Role Phone Robert Garza PA-C Primary Care Provider [phone] Reason for Visit * Reason Onset Date Comments Outpatient Testing 03/19/2023 Encounter Details Date Type Department Care Team Description 03/19/2023 Telephone NephrologyMoris [address] [place] [address] Dennis Sanford MD 200 [facility] [place] [phone] Outpatient Testing Allergies Active Allergy Reactions Severity [...] Tablet 2 08/29/2022 Active Vitamin D (Ergocalciferol) 65977 UNIT Oral CapsuleIndications: Vitamin D deficiency Take [...] Miscellaneous Notes * Telephone Encounter - HEIDE Sen - 03/19/2023 5:[address] Sanford has nothing sooner than the August appointment. If someone would like to help us findsomething we will be happy to get this scheduled sooner. Thank you [facility] * Telephone Encounter - Marita Kirkpatrick LPN [...] Office Visit Family Medicine Robert Garza PA-C [address] [place], [place] [address] [address] 08/27/2023 Office Visit Nephrology Dennis Sanford MD [address] [place], [place] [address] [address] Scheduled Orders Name Type Priority Associated Diagnoses [...] the patient have Health Care Power of Over The Horizon Targeting Supervisor? No Code Status History Code Status Date Activated Date Inactivated Comments Full Code 09/28/2018 11:48 PM 10/03/2018 4:20 PM This order reflects the patients wishes and were consensually agreed upon. Full Code 04/26/2016 12:06 PM 04/29/2016 11:05 PM Th is order reflects the patients wishes and were consensually agreed upon. Care Teams Rn Maternal Child Relationship Specialty Start Date End Date Robert Garza PA-C [address] [place] [address] PCP - General Physician Stock Taker 06/18/22 documented as of this encounter
--- OUTSIDE RECORDS SUMMARY | 2023-07-25 11:34 | External Medical Summary ---
Demographics Address [address] [place] [address] Phone Unavailable Phone Unavailable Preferred Language Unknown Marital Status Unknown Sikh Affiliation Unknown Race Unknown Ethnic Group Unknown Author Name Unknown Address Unknown Organization K01:[facility] [place] - [address] [facility] [address] Laboratory Report Ordering Provider Test Date Status LAZ MATTHEWS 02/23/2023 16:13:19 Final Observation Date Value Abnormality Reference (Units ) Status BUN 02/23/2023 16:13:19 66 Above high normal 6-20 (mg/dL) Final Creatinine 02/23/2023 16:13:19 8.3 Above high normal 0.5-1.0 (mg/dL) Final Glomerular filtration rate/1.73 sq M.predicted [Volume Rate/Area] in Serum, Plasma or Blood by Creatinine-based formula (CKD-EPI) 02/23/2023 16:13:19 6 Below low normal >=60 (mL/min) Final eGFR is calculated based on the CKD-EPI 2020 equation SODIUM 02/23/2023 16:13:19 139 135-146 (m mol/L) Final Potassium 02/23/2023 16:13:19 5.1 3.5-5.1 (m mol/L) Final Cl 02/23/2023 16:13:19 107 98-107 (mm ol/L) Final CO2 02/23/2023 16:13:19 20 Below low normal 22- 32 (mmol/L) Final Anion gap 02/23/2023 16:13:19 12 7-15 (mmol /L) Final Glucose 02/23/2023 16:13:19 94 70-120 (mg /dL) Final Calcium 02/23/2023 16:13:19 8.7 8.4-10.2 ( mg/dL) Final Albumin 02/23/2023 16:13:19 4.1 3.8-5.0 (g /dL) Final Phosphate 02/23/2023 16:13:19 5.3 Above high normal 2. 5-4.8 (mg/dL) Final Performing Location LABORATORY C - [address] [facility] [address]
--- OUTSIDE RECORDS SUMMARY | 2023-07-25 11:34 | External Medical Summary | Summary of Care ---
Author Name Unknown Organization [facility] Address [address] [place] [address] Phone [phone] Care Team Providers Care Mortuary Technician Name Role Phone Robert Garza PA-C Primary Care Provider [phone] Reason for Visit * Reason Comments case management CKD CM goal review Encounter Details Date Type Department Care Team Description 03/25/2023 Drag Sawyer Care Coordination [address], [place] [id number] Miri Herzog RN Chronic kidney disease, stage 5 (HCC)* Allergies Active Allergy Reactions Severity Noted Date Comments Amoxicillin-Pot Clavulanate Hives 04/26/2016 Pollen Other (Please comment) Medium 04/12/2012 Seasonal allergies: Itchy watery eyes, sneezes. 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 08/03/2019 Nephrotic range proteinuria 08/03/2019 Nephrotic syndrome 11/13/2017 Overview: See 11/2015 note documented as of this encounter (statuses as of 03/25/2023) Resolved Problems Problem Noted Date Resolved Date [...] Nutrition Pamphlet given for WIC 09/13/2015 Jen Keslser RN 09/13/2015 Education Booklet and appropriate trimester [...] as of this encounter (statuses as of 03/25/2023) Immunizations Name Administration Dates Next Due Seasonal [...] Progress Notes * Miri Herzog RN - 03/25/2023 3:51 PM EDT Drag Sawyer Progress Note: Date: 03/25/23 Assigned Patient Tier: 3 Connected with patient via phone. Verified patient name/. Advised patient that call is being recorded for quality and training purposes. Assessment: Pt. noted the following: CKD CM goal review Spoke with pt, she reports she is doing ok. She is aware of care team and has contact information for each. She has monthly labs ordered. Next nephrology appt will be scheduled for 04/22. She received letter to schedule appt with surgeon at [facility]. for PD catheter consult. Pt reports that her phosphate binder was increased to 2 tabs with each meal. Pt reports adherence with low sodium diet and limiting phosphorus containing foods/drinks. Pt wt fluctuates between 197-200#, she has had an 8# loss since December. Denies edema. No SOB, no N/V,no weakness/dizziness, no falls. Pt able to teach back red flags. Plan will f/u in 1-2 weeks for progress note. . Did you receive an alert for an annual wellness visit? No Is this call for a hospital, fci or rehab facility discharge to home? No Medication Reconciliation: Medication Reconciliation completed: reviewed Review of Current goals: Discussed the following patient-centered CM goals with the patient during this discussion: -CKD: Patient will maintain kidney function as long as possible -Status: On Track denies s/s of uremia. -ESRD: Patient will be prepared for dialysis initiation -Status: On Track pt has had PD nurse home visit, needs appt with surgeon for PD consult. -ESRD: Promote minimal renal risk for patient -Status: On Track pt getting labs monthly, adherent with diet. COPD Patient: No CHF Patient: NO CM Plan: Reviewed 3 Red Flags with patient. Advised to call CM with any of the following: Red Flag 1: SOB, Red Flag 2: Metallic taste, or Red Flag 3: N/V Remote Patient Monitoring: At this time, RPM not offered/considered for patient due to pt using own scale. Plan for Future Contacts: Plan to follow up within 2 weeks to check progress on the following goals/needs s/s of uremia. Planned contacts from the following parties will occur this week: N/A as additional contacts per workflow. Advancement/Closure Plan: [...] call office if symptoms occur. Follow up: 1-2weeks, patient verbalizes understanding to call office if questions or concerns arise. Miri Herzog RN Kidney Transitions Specialist Nephrology Case Management documented in this encounter Plan of Treatment Upcoming Encounters Date Type Specialty Care Team Description 05/20/2023 Office Visit Family Medicine Robert Garza, PA-C [address] [place] [phone] 08/27/2023 Office Visit Nephrology Dennis Sanford MD [address] [place] [address] Health Maintenance Due Date Last Done Comments [...] patient have Health Care Power of Senior Digital Designer? No Code Status History Code Status Date Activated Date Inactivated Comments Full Code 09/28/2018 11:48 PM 10/03/2018 4:20 PM This order reflects the patients wishes and were consensually agreed upon. Full Code 04/26/2016 12:06 PM 04/29/2016 11:05 PM Th is order reflects the patients wishes and were consensually agreed upon. Care Teams Mortuary Technician Relationship Specialty Start Date End Date Robert Garza PA-C [address] [place] [address] [phone] PCP - General Physician Trains Service Conductor 06/18/22 documented as of this encounter
--- OUTSIDE RECORDS SUMMARY | 2023-07-25 11:34 | External Medical Summary | Summary of Care ---
Author Name Unknown Organization [facility] Address [address] [place] [address] Phone [phone] Care Team Providers Care Small Offset Printer Name Role Phone Robert Garza PA-C Primary Care Provider [phone] Reason for Visit * Reason Onset Date Comments Follow Up 03/02/2023 Kidney donor [facility] Encounter Details Date Type Department Care Team Description 03/02/2023 Telephone Transplant Clinic, [facility] [address] [place] [address] Yudelka Galindo, RN [address] [place] [address] Follow Up (Kidney donor status) Allergies Active Allergy Reactions Severity Noted Date Comments Amoxicillin-Pot Clavulanate Hives 04/26/2016 Pollen Other (Please comment) Medium 04/12/2012 Seasonal allergies: Itchy watery eyes, sneezes. 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 Has decided to decline NFP. 10/15/2015 eJn Kessler RN 10/15/2015 11/15/2015 Problem Action Taken [...] as of this encounter (statuses as of 03/02/2023) Immunizations Name Administration Dates Next Due Seasonal Influenza, Quadriva lent, No Preserve, 6 Mons & Above, IM 07/21/2019 TDAP (age 10 and older)(Boostrix) 10/03/2018,07/2015 [...] encounter Miscellaneous Notes * Telephone Encounter - Yudelka Galindo RN - 03/02/2023 11:40 AM EDT ----- Message from Dennis Sanford MD sent at 03/02/2023 9:25 AM EDT ----- Regarding: RE: Donor situation Thanks Yudelka for the update Most recent crossmatch is probably her sister. We will update the patient about the situation. Dennis Sanford MD ----- Message ----- From: Yudelka Galindo RN Sent: 02/27/2023 3:41 PM EDT To: Dennis Sanford MD, Miri Herzog RN Subject: RE: Donor situation Hi Radha Jay has had several donors come forward. Unfortunately when donors don't follow through, I am not able to call the recipient to let them know, and they are misled. All donors that have come forward were contacted within a few days of when they submitted the online donor questionnaire and preliminary compatibility blood work was arranged and discussed with the donors at that time. In November she had a donor that was ruled out for malignant melanoma. In December she had a donor who hung up on us when we called her to arrange testing, didn't answer repeat calls back to her, and did not respond to the letter that was then sent to her. In December another donor was made aware that she needed to repeat crossmatch blood work because her initial crossmatch came back with unexpected positivity. She never went to have the repeat drawn. In December she had 2 other donors that crossmatch was set up. One was going to [facility] and the other was going to [facility]. Neither donor went for their blood work. Back in September she had a donor who was going to [facility] for crossmatch. She never went. She came forward again in January and finally went for crossmatch blood work 2 days ago. I should get the results next week. Hopefully she will be compatible and I can get her scheduled rema for evaluation and testing. Thanks, Yudelka ----- Message ----- From: Dennis Sanford MD Sent: 02/27/2023 3:17 PM EDT To: Yudelka Galindo, RN, Miri Herzog RN Subject: Donor situation Hi Yudelka, I saw Elysia today. As you can see her renal labs are getting progressively worse and creatinine is now up to 8 with GFR of 6. Fortunately she has absolutely no uremic symptoms and she does not needdialysis at this very moment but is getting very close. She says she has multiple donors but they have not heard from the transplant department. Where are we at this point with her donors and how fast do you think we can do her transplant ? I am trying to decide whether to do PD catheter at this time or not to decide about the timing withregards to transplant and PD Edilma Collins documented in this encounter Plan of Treatment Upcoming Encounters Date Type Specialty Care Team Description 05/20/2023 Office Visit Family Medicine Robert Garza PASylviaC [address] [place] [address] 08/27/2023 Office Visit Nephrology Dennis Sanford MD [address] [place] [address] Health Maintenance Due Date Last Done Comments [...] the patient have Health Care Power of Tax Examiner? No Code Status History Code Status Date Activated Date Inactivated Comments Full Code 09/28/2018 11:48 PM 10/03/2018 4:20 PM This order reflects the patients wishes and were consensually agreed upon. Full Code 04/26/2016 12:06 PM 04/29/2016 11:05 PM Th is order reflects the patients wishes and were consensually agreed upon. Care Teams Small Offset Printer Relationship Specialty Start Date End Date Robert Garza PA-C [address] [place] [id number] PCP - General Physician Linen Folder 06/18/22 documented as of this encounter
--- OUTSIDE RECORDS SUMMARY | 2023-07-25 11:34 | External Medical Summary | Summary of Care ---
Author Name Unknown Organization [facility] Address [address] [place] [address] Phone [phone] Care Team Providers Care [place] Dental Lab Technician Name Role Phone Robert Garza PA-C Primary Care Provider [phone] Reason for Visit * Reason Comments Chronic Kidney Disease (CKD) Encounter Details Date Type Department Care Team Description 02/27/2023 Office Visit Nephrology, Moris Berry [address] [place] [address] Dennis Sanford MD [address] [place] [address] Chronic kidney disease, stage 5 (HCC)*; FSGS (focal segmental glomerulosclerosis) with nephrosis Allergies Active Allergy Reactions Severity Noted Date Comments Amoxicillin-Pot Clavulanate Hives 04/26/2016 Pollen Other (Please comment) Medium 04/12/2012 Seasonal allergies: Itchy watery eyes, sneezes. 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 08/03/2019 Nephrotic range proteinuria 08/03/2019 Nephrotic syndrome 11/13/2017 Overview: See 11/2015 note documented as of this encounter (statuses as of 02/27/2023) Resolved Problems Problem Noted Date Resolved Date [...] as of this encounter (statuses as of 02/27/2023) Immunizations Name Administration Dates Next Due Seasonal Influenza, Quadriva lent, No Preserve, 6 Mons & Above, IM 07/21/2019 TDAP (age 10 and older)(Boostrix) 10/03/2018,07/2015 documented as of this encounter Social History Tobacco Use Types Packs/Day Years Used Date Smoking Tobacco: Never Smokeless Tobacco: Never Tobacco Cessation:Counseling Given: Not Answered Alcohol Use Standard Drinks/Week Comments No 0 [...] Sign Reading Time Taken Comments Blood Pressure 136/84 02/27/2023 3:10 PM EDT Pulse 56 02/27/2023 2:27 PM EDT Temperature 35.9 C (96.7 F) 02/27/2023 2:27 PM ED T Respiratory Rate 18 02/27/2023 2:27 PM EDT Oxygen Saturation 99% 02/27/2023 2:27 PM EDT Inhaled Oxygen Concentration - - Weight 89.4 kg (197 lb) 02/27/2023 2:27 PM EDT Height - - Body Mass Index 33.81 11/29/2022 10:24 AM EDT documented in this [...] Progress Notes * Dennis Sanford MD - 02/27/2023 2:28 PM EDT Chief Complaint Patient presents with Chronic Kidney Disease (CKD) SUBJECTIVE: HPI:Patient is a 28 year old female with notable for history of biopsy-proven primary FSGS, nephrotic range [id number],CKD stage 5, HTN hypothyroidism called today for CKD follow up. Notes from Nephrology consult by Dr Travis Regarding her primary FSGS-patient is been having nephrotic range proteinuria since 2016 (at that time she had her 1st child) and then lost to follow-up and with her 2nd she was found to have persistent nephrotic range proteinuria and underwent renal biopsy in02/2019which showed primary FSGS NOSvariant, ATN, interstitial fibrosis and tubular atrophy 20-25%. [...] 2021 because nobody was there to help herdrive to outpatient laboratory. Since last visit ----She decided to do PD and also has multiple potential donors. So she cancelled her AVF surgery. Patient presents today and reports she is feeling well. Denies any inc in fatigue- cares for 3 small children . Good appetite, no pruritus, normal sleep pattern. Is now listed on transplant list and gets monthly labs. She has multiple donors but they have not heard anything from the transplant department. No edema despite No diuretics. Hgb, alb still normal. HISTORY: Current Outpatient Medications Medication Sig Dispense Refill Carvedilol 12.5 MG Oral Tablet (Coreg) TAKE 1 TABLET BY MOUTH 2 TIMES A DAY WITH MORNING AND EVENING MEALS. 60 Tablet 11 Ferrous Sulfate 325 (65 Fe) MG Oral Tablet (Feosol) Take 1 Tablet by mouth in the morning and 1Tablet before bedtime. 180 Tablet 2 Sodium Bicarbonate 650 MG Oral Tablet Take 1 Tablet by mouth in the morning and 1 Tablet beforebedtime. 180 Tablet 2 Vitamin D (Ergocalciferol) 85939 UNIT Oral Capsule Take 50,000 Units by [...] evening. Take with meals. 90 Capsule 1 No current facility-administered medications for this visit. Review of patient's allergies indicates: Allergen Reactions Environmental [Pollen] Other (Please comment) Seasonal allergies: Itchy watery eyes, sneezes. Augmentin [Amoxicillin-Pot Clavulanate] Hives Past Medical History: Diagnosis Date Chronic kidney disease (CKD), stage II (mild) FSGS (focal segmental glomerulosclerosis) 2015 Hypothyroidism Kidney disease, chronic, stage IV (GFR 15-29 ml/min) ([facility]) 06/20/2021 Nephrotic syndrome 2016 Surveillance of previously prescribed contraceptive method 04/25/2009 Implanon left arm 04/19/09, removal due 04/19/2012 Viral warts, unspecified 02/13/2009 condyloma Past Surgical History: Procedure Laterality Date DELIVERY ONLY W/ N/A 09/30/2018 DELIVERY AND CARE performed by Mio Fuentes MD at [facility] INSERT CONTRACEPTIVE CAPSULES 04/19/09 Implanon IR BIOPSY 06/04/2022 RENAL BIOPSY, PERCUTANEOUS (TROCAR/NEEDLE) N/A 02/23/2019 RENAL BIOPSY PERCUTANEOUS performed by [facility] [place] [place] [facility] [place] Family History Problem Relation Age of Onset No Past Hx Mother Other (scoliosis) Father Other (ing hernias) Father No Past Hx Sister No Past Hx Brother Other (Polydactyly) Brother No Known Problems Brother No Known Problems Son No Known Problems Son No Known Problems Son No Known Problems Daughter Social History Socioeconomic History Marital status: Single Spouse name: bryce Thakkar yo Number of children: 3 Years of [...] systems were reviewed and were negative. OBJECTIVE: There were no vitals taken for this visit. Wt Readings from Last 1 Encounters: 01/14/23 92.5 kg (204 lb) General appearance: alert, no apparent distress. [...] Readings: BP Readings from Last 4 Encounters: 01/14/23 132/76 11/29/22 153/100 11/26/22 138/88 11/20/22 118/78 Last 3 Weights: Wt Readings from Last 3 Encounters: 01/14/23 92.5 kg (204 lb) 11/29/22 90.7 kg (200 lb) 11/26/22 91 kg (200 lb 11.2 oz) Estimated body mass index is 35.02 kg/m as calculated from the following: Height as of 11/29/22: 1.626 m (5' 4"). Weight as of 01/14/23: 92.5 kg (204 lb). LABS: Latest Reference Range & Units [...] Normal. No mass. Kidneys and ureters: The [place] kidneys are small and atrophic. Stomach and [...] with nephrosis Gradually worsening renal function with proteinuria>unfortunately now progressed to CKD 5 GFR now 5. medication non compliance- previously on prednisone and cyclosporine, stopped by herself, andlost to follow up with nephrology. Kidney biopsy 06/04/22 showed advanced FSGS with IFTA 60%,Glomerular obsolescence. Pt is aware of MECHANIC WELDER TRUCK DRIVER modalities- Pt is also listed with transplant. She has decided to do PD at home now after talking to her sister's Mother in law who is my PD patient. She told good things about the PD nurse in [facility] unit and now she wants to do sameas her sister's Mother in law. She also wants to use the same surgeon for PD--which is Dr Elena at [facility]. Will arrange this. Already did home visit by PD nurse and she has been cleared without any issues. Even now she feels completely normal and is very surprised to hear that GFR is so low. Normal exam no edema despite no diuretics. Absolutely no uremic symptoms so no need to start dialysis at this point. She has multiple donors. But they have not heard from the transplant department. I will reach out to the transplant department coordinators and ask them to give call to the patientand update regarding the donor situation Patient would really like to get transplant directly without doing dialysis Follow Up: Return in about 2 months (around 04/29/2023) for Clinic Visit. | For: Clinic Visit I spent a total of 40-54 minutes (exact time 52 mins) on the date of service in preparation, delivery, and documentation of the care provided to Radha Lane excluding any time spent in the performance of separately billed services. Dennis Sanford MD documented in this encounter Nursing Notes * Meghan Parker RN - 02/27/2023 2:29 PM EDT Follow up visit. No recent updates from transplant team. Has not been contacted by transplant team recently. documented in this encounter Plan of Treatment Upcoming Encounters Date Type Specialty Care Team Description 05/20/2023 Office Visit Family Medicine Robert Garza PA-C [address] [place] [address] 08/27/2023 Office Visit Nephrology Dennis Sanford MD [address] [place] [address] Health Maintenance Due Date Last Done Comments [...] Ratio Discontinued 10/06/2022, 04/20 Nephrology Referral Discontinued 11/20/2022 GARDASIL-HPV IMMUNIZATION SERIES Aged Out No longer [...] the patient have Health Care Power of Nba Player? No Code Status History Code Status Date Activated Date Inactivated Comments Full Code 09/28/2018 11:48 PM 10/03/2018 4:20 PM This order reflects the patients wishes and were consensually agreed upon. Full Code 04/26/2016 12:06 PM 04/29/2016 11:05 PM Th is order reflects the patients wishes and were consensually agreed upon. Care Teams [place] [facility] Dental Lab Technician Relationship Specialty Start Date End Date Robert Garza PA-C [address] [place] [id number] PCP - General Physician Furnace Tapper 06/18/22 documented as of this encounter
--- OUTSIDE RECORDS SUMMARY | 2023-07-25 11:34 | External Medical Summary | Summary of Care ---
Demographics Address [address] [place] [address] Mobile Phone Email Address Preferred Language Martiniquais Marital Status Unknown Amish Affiliation Unknown Race White Ethnic Group Not or Lati no Author Name Unknown Organization [facility] Address [address] [place] [address] Phone [phone] Support Name Relationship Address Phone Agnieszka Lane Mother Unknown Yudelka Lane Grandparent Unknown Bryce Madison Emergency Contact [address] [place] [address] Care Team Providers Care Clinical Nurse Reviewer Name Role Phone Robert Garza PA-C Primary Care Provider +1 [phone] Reason for Visit * Reason Onset Date Comments Appointment 02/18/2023 Encounter Details Date Type Department Care Team Description 02/18/2023 Telephone [facility] [place] [address] Dennis Sanford MD [address] [facility] [place] [address] Appointment Allergies Active Allergy Reactions Severity Noted Date Comments Amoxicillin-Pot Clavulanate Hives 04/26/2016 Pollen Other (Please comment) Medium 04/12/2012 Seasonal allergies: Itchy watery eyes, sneezes. 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 documented in this encounter Plan of Treatment Upcoming Encounters Date Type Specialty Care Team Description 02/27/2023 Office Visit Nephrology Dennis Sanford MD [address] [place] [address] 05/20/2023 Office Visit Family Medicine Robert Garza PA-C [address] [place] [address] Scheduled Orders Name Type Priority Associated Diagnoses Orde r Schedule RENAL FUNCTION PANEL Lab Routine Chronic kidney disease, stage 5 (HCC) Expected: 02/23/2023 (Approximate), Expires: 02/19/2024 Health Maintenance Due Date Last Done Comments [...] the patient have Health Care Power of Barometers Calibrator? No Code Status History Code Status Date Activated Date Inactivated Comments Full Code 09/28/2018 11:48 PM 10/03/2018 4:20 PM This order reflects the patients wishes and were consensually agreed upon. Full Code 04/26/2016 12:06 PM 04/29/2016 11:05 PM Th is order reflects the patients wishes and were consensually agreed upon. Care Teams Clinical Nurse Reviewer Relationship Specialty Start Date End Date Robert Garza PA-C [address] [place] [address] PCP - General Physician Paper Coating Machine Operator 06/18/22 documented as of this encounter
--- OUTSIDE RECORDS SUMMARY | 2023-07-25 11:34 | External Medical Summary | Summary of Care ---
Author Name Unknown Organization [facility] Address [address] [place] [address] Phone [phone] Support Name Relationship Address Phone Agnieszka Lane Mother Unknown Yudelka Lane Grandparent Unknown Bryce Madison Emergency Contact [address] [place] [address] Care Team Providers Care Supervisor Cell Operation Name Role Phone Robert Garza PA-C Primary Care Provider +1 [phone] Reason for Visit * Reason Comments case management CKD CM goal review Encounter Details Date Type Department Care Team Description 02/17/2023 Fishing Tool Supervisor Care Coordination [address] [place], [place] [id number] Miri Herzog RN Chronic kidney disease, stage 5 ([facility])* Allergies Active Allergy Reactions Severity Noted Date [...] Tablet 2 08/29/2022 Active Vitamin D (Ergocalciferol) 99224 UNIT Oral CapsuleIndication s:Vitamin D deficiency Take [...] with meals. 90 Capsule 1 11/27/2022 Active Levothyroxine Sodium 50 MCG Oral Tablet (Levoxyl) Take 1 Tablet by mouth daily first thing in the morning. (at least 30 min prior to breakfast or other meds) 90 Tablet 3 08/29/2022 02/17/2023 Discontinue d(Medicatio n List Clean Up) documented as of this encounter (statuses as [...] rock exercises Tylenol as needed 05/31/2018 Jen Ksesler RN ongoing 06/28/18 Problem Action Taken Date [...] Progress Notes * Miri Herzog RN - 02/17/2023 4:25 PM EDT Fishing Tool Supervisor Progress Note: Date: 02/17/23 Assgned Patient Tier: 3 Connected with patient via phone. Verified patient name/. Advised patient that call is being recorded for quality and training purposes. Assessment: Pt. noted the following: CKD CM goal review Pt denies s/s of uremia. She is able to teach back at least 5 red flags to monitor for and report. Pt has had a 6# wt loss in the past month. She is having some food insecurities and has not been eating as well as she should be. Referral placed to [facility] for food rader. BP 138/75. Pt reports that she has not seen a surgeon for PD catheter consult. Bottles out med rec done. Pt reports adherence. Plan; will f/u in 10-14 days for s/s of uremia. Did you receive an alert for an annual wellness visit? No Is this call for a hospital, skilled nursing or rehab facility discharge to home? No Medication Reconciliation: Medication Reconciliation completed: yes Review of Current goals: Discussed the following patient-centered CM goals with the patient during this discussion: -CKD: Patient will maintain kidney function as long as possible -Status: At Risk GFR 6. -ESRD: Patient will be prepared for dialysis initiation -Status: At Risk pt needs surgical consult re: PD catheter placement. -ESRD: Promote minimal renal risk for patient -Status: On Track pt able to verbalize s/s to monitor for. . COPD Patient: No CHF Patient: NO CM Plan: Reviewed 3 Red Flags with patient. Advised to call CM with any of the following: Red Flag 1: SOB, Red Flag 2: Edema or Red Flag 3: N/V, loss of appetite Remote Patient Monitoring: At this time, RPM not offered/considered for patient due to pt using home equipment. Plan for Future Contacts: Plan to [...] call office if symptoms occur. Follow up: 10-14 days, patient verbalizes understanding to call office if questions or concerns arise. Office number [phone] Miri Hrezog RN Kidney Transitions Specialist Nephrology Case Management documented in this encounter Plan of Treatment Upcoming Encounters Date Type Specialty Care Team Description 05/20/2023 Office Visit Family Medicine Robert Garza, PAPaul [address] [place] [address] Health Maintenance Due Date Last Done Comments [...] the patient have Health Care Power of Pepper Picker? No Code Status History Code Status Date Activated Date Inactivated Comments Full Code 09/28/2018 11:48 PM 10/03/2018 4:20 PM This order reflects the patients wishes and were consensually agreed upon. Full Code 04/26/2016 12:06 PM 04/29/2016 11:05 PM Th is order reflects the patients wishes and were consensually agreed upon. Care Teams Supervisor Cell Operation Relationship Specialty Start Date End Date Robert Garza PA-C [address] [place] [address] PCP - General Physician Home Attendant 06/18/22 documented as of this encounter
--- OUTSIDE RECORDS SUMMARY | 2023-07-25 11:34 | External Medical Summary ---
Demographics Address [address] [place] [address] Phone Unavailable Phone Unavailable Preferred Language Unknown Marital Status Unknown Confucianism Affiliation Unknown Race Unknown Ethnic Group Unknown Author Name Unknown Address Unknown Organization K01[place] [facility] [place] [facility] [address] [place] [address] Laboratory Report Ordering Provider Test Date Status CARLO ROWLAND 03/20/2023 08:39:32 Final Observation Date Value Abnormality Reference (Units ) Status BUN 03/20/2023 08:39:32 67 Above high normal 6-20 (mg/dL) Final Creatinine 03/20/2023 08:39:32 8.5 Above high normal 0.5-1.0 (mg/dL) Final Glomerular filtration rate/1.73 sq M.predicted [Volume Rate/Area] in Serum, Plasma or Blood by Creatinine-based formula (CKD-EPI) 03/20/2023 08:39:32 6 Below low normal >=60 (mL/min) Final eGFR is calculated based on the CKD-EPI 2020 equation SODIUM 03/20/2023 08:39:32 137 135-146 (m mol/L) Final Potassium 03/20/2023 08:39:32 4.9 3.5-5.1 (m mol/L) Final Cl 03/20/2023 08:39:32 103 98-107 (mm ol/L) Final CO2 03/20/2023 08:39:32 18 Below low normal 22- 32 (mmol/L) Final Anion gap 03/20/2023 08:39:32 16 Above high normal 7- 15 (mmol/L) Final Glucose 03/20/2023 08:39:32 77 70-120 (mg /dL) Final Calcium 03/20/2023 08:39:32 8.7 8.4-10.2 ( mg/dL) Final Albumin 03/20/2023 08:39:32 4.4 3.8-5.0 (g /dL) Final Phosphate 03/20/2023 08:39:32 6.8 Above high normal 2. 5-4.8 (mg/dL) Final Performing Location [facility] [place] [address] [facility] [address]
--- OUTSIDE RECORDS SUMMARY | 2023-07-25 11:34 | External Medical Summary | Summary of Care ---
Author Name Unknown Organization [facility] Address [address] [place] [address] Phone [phone] Care Team Providers Care Wet Process Head Miller Name Role Phone Robert Garza PA-C Primary Care Provider [phone] [phone] Reason for Visit * Reason Onset Date Comments case management 04/03/2023 CKD CM attempt t o contact Encounter Details Date Type Department Care Team Description 04/03/2023 Fly Worker Telephone Nephrology, [address] [address] Miri Herzog wealth management advisor (CKD CM attempt to contact ) Allergies Active Allergy Reactions Severity Noted [...] Tablet 2 08/29/2022 Active Vitamin D (Ergocalciferol) 00519 UNIT Oral CapsuleIndications :Vitamin D deficiency Take [...] Telephone Encounter - Miri Herzog RN - 04/03/2023 1:39 PM EDT Follow-up Routine Attempted Phone Call First Attempt Call Outcome Left Voicemail/Message Plan To attempt another outreach Miri Herzog RN Kidney Transitions Specialist CKD Fly Worker documented in this encounter Plan of Treatment Upcoming Encounters Date Type Specialty Care Team Description 05/20/2023 Office Visit Family Medicine Robert Garza PA-C [address] [place] [address] 08/27/2023 Office Visit Nephrology Dennis Sanford MD [address] [place] [address] Health Maintenance Due Date Last Done Comments [...] the patient have Health Care Power of Bail Bonding Agent? No Code Status History Code Status Date Activated Date Inactivated Comments Full Code 09/28/2018 11:48 PM 10/03/2018 4:20 PM This order reflects the patients wishes and were consensually agreed upon. Full Code 04/26/2016 12:06 PM 04/29/2016 11:05 PM Th is order reflects the patients wishes and were consensually agreed upon. Care Teams Wet Process Head Miller Relationship Specialty Start Date End Date Robert Garza PA-Mirza [address] [place] [address] [phone] PCP - General Physician Casing Flusher 06/18/22 documented as of this encounter
--- OUTSIDE RECORDS SUMMARY | 2023-07-25 11:34 | External Medical Summary | Summary of Care ---
Author Name Unknown Organization [facility] Address [address] [place] [address] Phone [phone] Support Name Relationship Address Phone Agnieszka Lane Mother Unknown Yudelka Lane Grandparent Unknown Bryce Madison Emergency Contact [address] [place] [address] Care Team Providers Care Attendant Honor Bar Name Role Phone Robert Garza PA-C Primary Care Provider [phone] [phone] Reason for Visit * Reason Comments Outpatient Testing Encounter Details Date Type Department Care Team Description 02/23/2023 Laboratory [facility] [id number] [facility] Lab [address] [address] Chronic kidney disease, stage 5 (HCC) Allergies Active Allergy Reactions Severity Noted Date Comments Amoxicillin-Pot Clavulanate Hives 04/26/2016 Pollen Other (Please comment) Medium 04/12/2012 Seasonal allergies: Itchy watery eyes, sneezes. 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 08/03/2019 Nephrotic syndrome 11/13/2017 Overview: See 11/2015 note documented as of this encounter (statuses as of 02/23/2023) Resolved Problems Problem Noted Date Resolved Date [...] as of this encounter (statuses as of 02/23/2023) Immunizations Name Administration Dates Next Due Seasonal [...] 02/27/2023 Office Visit Nephrology Dennis Sanford MD [address] [place] [address] 05/20/2023 Office Visit Family Medicine Robert Garza PA-C [address] [place] [address] Pending Results Name Type Priority Associated Diagnoses Date /Time RENAL FUNCTION PANEL Lab Routine Chronic kidney disease, stage 5 (HCC) 02/23/2023 4:13 PM EDT Health Maintenance Due Date Last Done [...] Diagnosis Chronic kidney disease, stage 5 (HCC) documented [...] the patient have Health Care Power of Hooker Inspector? No Code Status History Code Status Date Activated Date Inactivated Comments Full Code 09/28/2018 11:48 PM 10/03/2018 4:20 PM This order reflects the patients wishes and were consensually agreed upon. Full Code 04/26/2016 12:06 PM 04/29/2016 11:05 PM Th is order reflects the patients wishes and were consensually agreed upon. Care Teams Attendant Honor Bar Relationship Specialty Start Date End Date Robert Garza PA-C [address] [place], [place] [address] johnson [id number] PCP - General Physician Job Setter 06/18/22 documented as of this encounter
--- OUTSIDE RECORDS SUMMARY | 2023-07-25 11:34 | External Medical Summary | Summary of Care ---
Author Name Unknown Organization [facility] Address [address] [place] [address] Phone [phone] Care Team Providers Care Back Hand Name Role Phone Robert Garza PA-C Primary Care Provider +1 [phone] Reason for Visit * Reason Onset Date Comments Test Results Lab 03/20/2023 Incompatible ki dney donor Encounter Details Date Type Department Care Team Description 03/20/2023 Telephone Transplant Clinic, [place] [address] [place] [address] Yudelka Galindo, RN [address] [place] [address] Test Results Lab (Incompatible kidney donor) Allergies Active Allergy Reactions Severity Noted Date [...] Tablet 2 08/29/2022 Active Vitamin D (Ergocalciferol) 84995 UNIT Oral CapsuleIndications: Vitamin D deficiency Take [...] rock exercises Tylenol as needed 05/31/2018 Jen eKssler RN ongoing 06/28/18 Problem Action Taken Date [...] Telephone Encounter - Yudelka Galindo RN - 03/20/2023 9:10 AM EDT Late note from 03/13/23. Spoke with patient's potential renal donor/sister MR # [id number] to make her aware that the results of preliminary crossmatch have been reviewed and found to be incompatible. Donor wishes to proceed with evaluation for kidney exchange and will relay this to patient. Preliminary crossmatch 02/27/23, T cell negative, B cell positive by flow cytometry. No DSA was identified. Scanned into [employer]. documented in this encounter Plan of Treatment Upcoming Encounters Date Type Specialty Care Team Description 05/20/2023 Office Visit Family Medicine Robert Garza, PA-C [address] [place] [address] 08/27/2023 Office Visit Nephrology Dennis Sanford MD [address] [place] [address] Health Maintenance Due Date Last Done Comments [...] the patient have Health Care Power of Bliss Press Operator? No Code Status History Code Status Date Activated Date Inactivated Comments Full Code 09/28/2018 11:48 PM 10/03/2018 4:20 PM This order reflects the patients wishes and were consensually agreed upon. Full Code 04/26/2016 12:06 PM 04/29/2016 11:05 PM Th is order reflects the patients wishes and were consensually agreed upon. Care Teams Back Hand Relationship Specialty Start Date End Date Robert Garza PA-C [address] [place] [address] PCP - General Physician Pearl Glue Drier 06/18/22 documented as of this encounter
--- OUTSIDE RECORDS SUMMARY | 2023-07-25 11:34 | External Medical Summary | Summary of Care ---
Author Name Unknown Organization [facility] Address [address] [place] [address] Phone [phone] Care Team Providers Care Neck Pinner Name Role Phone Robert Garza PA-C Primary Care Provider +1 [phone] Reason for Visit * Reason Comments case management CKD CM goal review Encounter Details Date Type Department Care Team Description 02/17/2023 Wire Rigger Care Coordination [address] [place], [place] [phone] Miri Herzog RN Chronic kidney disease, stage 5 ([facility])* Allergies Active Allergy Reactions Severity Noted Date Comments Amoxicillin-Pot Clavulanate Hives 04/26/2016 Pollen Other (Please comment) Medium 04/12/2012 Seasonal allergies: Itchy watery eyes, sneezes. 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 Referral placed to [facility] for food rader. BP 138/75. Pt reports that she has not seen a surgeon for PD catheter consult. Bottles out med rec done. Pt reports adherence. Plan; will f/u in 10-14 days for s/s of uremia. Did you receive an alert for an annual wellness visit? No Is this call for a hospital, penitentiary or rehab facility discharge to home? No [...] if questions or concerns arise. Office number [phone] Miri Herzog RN Kidney Transitions Specialist Nephrology Case Management documented in this encounter Plan of Treatment Upcoming Encounters Date Type Specialty Care Team Description 05/20/2023 Office Visit Family Medicine Robert Garza, PAPaul [address] [place] [address] Health Maintenance Due Date Last Done Comments [...] the patient have Health Care Power of Driver Retraining Instructor? No Code Status History Code Status Date Activated Date Inactivated Comments Full Code 09/28/2018 11:48 PM 10/03/2018 4:20 PM This order reflects the patients wishes and were consensually agreed upon. Full Code 04/26/2016 12:06 PM 04/29/2016 11:05 PM Th is order reflects the patients wishes and were consensually agreed upon. Care Teams Neck Pinner Relationship Specialty Start Date End Date Robert Garza PA-C [address] [place] [address] PCP - General Physician Color Control Supervisor 06/18/22 documented as of this encounter
--- OUTSIDE RECORDS SUMMARY | 2023-07-25 11:34 | External Medical Summary | Summary of Care ---
Author Name Unknown Organization [facility] Address [address] [place] [address] Phone [phone] Care Team Providers Care Controls Designer Name Role Phone Robert Garza PA-C Primary Care Provider [phone] [phone] Reason for Visit * Reason Comments case management CKD CM progress note Encounter Details Date Type Department Care Team Description 03/03/2023 Customs And Border Protection Inspector Care Coordination [address] [place], [place] [phone] Miri Herzog RN Chronic kidney disease, stage 5 (HCC)* Allergies Active Allergy Reactions Severity Noted Date Comments Amoxicillin-Pot Clavulanate Hives 04/26/2016 Pollen Other (Please comment) Medium 04/12/2012 Seasonal allergies: Itchy watery eyes, sneezes. 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 She reports that she got call re: food rader and said she has gotten food. Sig other also got a good check and that was also helpful. Pt is able to teach back red flags. Reviewed note from transplant nurse, pt is going to reach out to potential donors she has talked with re: getting labs done. Pt remains hopeful that she can get transplant before needing dialysis. But is aware that if she has any S/S she is to call right away as she will need to have PD catheter placed. Plan; will f/u in 2-3 weeks for goal review. Exacerbation Plan Reviewed S/S of uremia and fluid retention. Reviewed diet restrictions, including no added salt, phosphorus and potassium. Encouraged to call office if symptoms occur. Follow up: 2-3 weeks, patient verbalizes understanding to call office if questions or concerns arise. Office number [phone] Miri Herzog RN Kidney Transitions Specialist Nephrology Case Management documented in this encounter Plan of Treatment Upcoming Encounters Date Type Specialty Care Team Description 05/20/2023 Office Visit Family Medicine Robert Garza PA-C [address] [place] [address] 08/27/2023 Office Visit Nephrology Dennis Sanford MD [address] [place] [address] Health Maintenance Due Date Last Done Comments [...] patient have Health Care Power of Manager Dialysis? No Code Status History Code Status Date Activated Date Inactivated Comments Full Code 09/28/2018 11:48 PM 10/03/2018 4:20 PM This order reflects the patients wishes and were consensually agreed upon. Full Code 04/26/2016 12:06 PM 04/29/2016 11:05 PM Th is order reflects the patients wishes and were consensually agreed upon. Care Teams Controls Designer Relationship Specialty Start Date End Date Robert Garza PA-C [address] [place] [address] PCP - General Physician Director Of First Impressions 06/18/22 documented as of this encounter
--- OUTSIDE RECORDS SUMMARY | 2023-07-25 11:34 | External Medical Summary | Summary of Care ---
Author Name Unknown Organization [facility] Address [address] [place] [address] Phone [phone] Support Name Relationship Address Phone Agnieszka Lane Mother Unknown Yudelka Lane Grandparent Unknown Bryce Madison Emergency Contact [address] [place] [address] Care Team Providers Care Project Coach Name Role Phone Robert Garza PA-C Primary Care Provider +1 [phone] Reason for Visit * Reason Comments Outpatient Testing Encounter Details Date Type Department Care Team Description 03/20/2023 [facility] [phone] [facility] [address] [address] Pre-transplant evaluation for ESRD (end stage renal disease); CKD (chronic kidney disease) stage 5, GFR less than 15 ml/min ([facility]); End stage renal disease (HCC) [...] Tablet 2 08/29/2022 Active Vitamin D (Ergocalciferol) 80539 UNIT Oral CapsuleIndications: Vitamin D deficiency Take [...] having any current needs or questions 03/03/2016 Jne Kessler RN 03/03/2016 04/16/2016 Problem Action Taken [...] Visit Family Medicine Robert Garza PA-C [address] [place] [address] 08/27/2023 Office Visit Nephrology Dennis Sanford MD [address] [place] [address] Pending Results Name Type Priority Associated Diagnoses [...] the patient have Health Care Power of Automotive Worker Foreman? No Code Status History Code Status Date Activated Date Inactivated Comments Full Code 09/28/2018 11:48 PM 10/03/2018 4:20 PM This order reflects the patients wishes and were consensually agreed upon. Full Code 04/26/2016 12:06 PM 04/29/2016 11:05 PM Th is order reflects the patients wishes and were consensually agreed upon. Care Teams Project Coach Relationship Specialty Start Date End Date Robert Garza PA-C [address] [place] [phone] PCP - General Physician Drainlayer 06/18/22 documented as of this encounter
--- OUTSIDE RECORDS SUMMARY | 2023-07-25 11:34 | External Medical Summary | Summary of Care ---
Author Name Unknown Organization [facility] Address [address] [place] [address] Phone [phone] Care Team Providers Care Bicycle Mechanic Name Role Phone Robert Garza PA-C Primary Care Provider [phone] [phone] Reason for Visit * Reason Onset Date Comments case management 04/08/2023 CKD CM 2nd attem pt to contact Encounter Details Date Type Department Care Team Description 04/08/2023 Ordnance Engineering Technician Telephone Care Coordination [address] [place], [place] [id number] Miri Herzog, risk management consultant (CKD CM 2nd attempt to con... Allergies Active Allergy Reactions Severity Noted Date [...] Tablet 2 08/29/2022 Active Vitamin D (Ergocalciferol) 76552 UNIT Oral CapsuleIndications :Vitamin D deficiency Take [...] Telephone Encounter - Miri Herzog RN - 04/08/2023 11:03 AM EDT Follow-up Routine Attempted Phone Call Second Attempt Call Outcome Left Voicemail/Message Plan To attempt another outreach Miri Herzog RN Kidney Transitions Specialist CKD Ordnance Engineering Technician documented in this encounter Plan of Treatment Upcoming Encounters Date Type Specialty Care Team Description 04/29/2023 Office Visit Nephrology Dennis Sanford MD [address] [place] [address] 05/20/2023 Office Visit Family Medicine Robert Garza PA-C [address] [place] [address] Health Maintenance Due Date Last Done [...] the patient have Health Care Power of Manufacturing Specialist? No Code Status History Code Status Date Activated Date Inactivated Comments Full Code 09/28/2018 11:48 PM 10/03/2018 4:20 PM This order reflects the patients wishes and were consensually agreed upon. Full Code 04/26/2016 12:06 PM 04/29/2016 11:05 PM Th is order reflects the patients wishes and were consensually agreed upon. Care Teams Bicycle Mechanic Relationship Specialty Start Date End Date Robert Garza PA-C [address] [place] [address] PCP - General Physician Clay Artist 06/18/22 documented as of this encounter
--- OUTSIDE RECORDS SUMMARY | 2023-07-25 11:35 | External Medical Summary | Summary of Care ---
Author Name Unknown Organization [facility] Address [address] [place] [address] Phone [phone] Care Team Providers Care Business Rules Analyst Name Role Phone Robert Garza PA-C Primary Care Provider [phone] [phone] Reason for Visit * Reason Comments case management CKD CM progress note Encounter Details Date Type Department Care Team Description 01/27/2023 Rn Circulating Care Coordination [address] [place], [place] [phone] Miri Herzog RN Chronic kidney disease, stage 5 (HCC)* Allergies Active Allergy Reactions Severity Noted Date Comments Amoxicillin-Pot Clavulanate Hives 04/26/2016 Pollen Other (Please comment) Medium 04/12/2012 Seasonal allergies: Itchy watery eyes, sneezes. documented as of this encounter (statuses as of 01/27/2023) Medications Medication Sig Dispensed Refills Start Date [...] before bedtime. 180 Tablet 2 07/23/2022 Active Levothyroxine Sodium 50 MCG Oral Tablet (Levoxyl) Take 1 Tablet by mouth daily first thing in the morning. (at least 30 min prior to breakfast or other meds) 90 Tablet 3 08/29/2022 Active Sodium Bicarbonate 650 MG Oral TabletIndications:C KD (chronic kidney disease) stage 5, GFR less than 15 ml/min (HCC),Metabolic acidosis Take 1 Tablet by mouth in the morning and 1 Tablet before bedtime. 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 Wt 204#, BP in the 130/70's. Pt continues to have a sore throat, worse in the mornings, her youngest child and sig other also now have it. She is taking APAP with some relief. She denies any edema. No loss of appetite or N/V. No medication changes since last call. Pt is able to give 3+ (red flags) s/s to monitor for. Pt had labs drawn for transplant and she did f/u with PCP re: her sore throat. Plan; will f/u in 2-3 weeks for goal review. Exacerbation Plan Reviewed S/S of uremia and fluid retention. Reviewed diet restrictions, including no added salt, phosphorus and potassium. Encouraged to call office if symptoms occur. Follow up: 2-3weeks, patient verbalizes understanding to call office if questions or concerns arise. Office number [phone] Miri Herzog RN Kidney Transitions Specialist Nephrology Case Management documented in this encounter Plan of Treatment Upcoming Encounters Date Type Specialty Care Team Description 05/20/2023 Office Visit Family Medicine Robert Garza PA-C [address] [place] [address] Health Maintenance Due Date Last Done Comments [...] the patient have Health Care Power of Force Adjustment Supervisor? No Code Status History Code Status Date Activated Date Inactivated Comments Full Code 09/28/2018 11:48 PM 10/03/2018 4:20 PM This order reflects the patients wishes and were consensually agreed upon. Full Code 04/26/2016 12:06 PM 04/29/2016 11:05 PM Th is order reflects the patients wishes and were consensually agreed upon. Care Teams Business Rules Analyst Relationship Specialty Start Date End Date Robert Garza PA-C [address] [place] [address] PCP - General Physician Loom Mechanic 06/18/22 documented as of this encounter
--- OUTSIDE RECORDS SUMMARY | 2023-07-25 11:35 | External Medical Summary | Summary of Care ---
Author Name Unknown Organization [facility] Address [address] [place] [address] Phone [phone] Care Team Providers Care City Editor Name Role Phone Robert Garza PA-C Primary Care Provider [phone] Reason for Visit * Reason Onset Date Comments Test Results 02/17/2023 Encounter Details Date Type Department Care Team Description 02/17/2023 Telephone NephrologyMoris [facility] [place] [address] Dennis Sanford MD [address] [facility] [place] [id number] Test Results Allergies Active Allergy Reactions Severity [...] Tablet 2 08/29/2022 Active Vitamin D (Ergocalciferol) 70969 UNIT Oral CapsuleIndication s:Vitamin D deficiency Take [...] encounter Miscellaneous Notes * Telephone Encounter - Dennis Sanford MD - 02/17/2023 4:35 PM EDT See other C/cc note to Miri * Telephone Encounter - Meghan Parker RN - 02/17/2023 2:46 PM EDT TE with pt regarding worsening lab results. She states she feels perfectly fine and has no uremic symptoms. She states that she is surprised that she is feeling well based on her current lab results.Pt does not have appt for PD cath insertion and states she does have 2 potential donors. * Telephone Encounter - Meghan Parker RN - 02/17/2023 2:45 PM EDT ----- Message from Dennis Sanford MD sent at 02/17/2023 2:15 PM EDT ----- Renal function even worse now with creatinine of 8. Ask how she is feeling. She wanted to do peritoneal dialysis. She has already been cleared by PD nurse at the [facility] unit in [place]. I would like her to be seen soon for assessment regarding whether to start dialysis. documented in this encounter Plan of Treatment Upcoming Encounters Date Type Specialty Care Team Description 05/20/2023 Office Visit Family Medicine Robert Garza PA-C [address] [place] [address] Health Maintenance Due Date Last Done [...] patient have Health Care Power of Metal Die Finisher? No Code Status History Code Status Date Activated Date Inactivated Comments Full Code 09/28/2018 11:48 PM 10/03/2018 4:20 PM This order reflects the patients wishes and were consensually agreed upon. Full Code 04/26/2016 12:06 PM 04/29/2016 11:05 PM Th is order reflects the patients wishes and were consensually agreed upon. Care Teams City Editor Relationship Specialty Start Date End Date Robert Garza PA-C [address] [place] [address] [phone] PCP - General Physician Photoengraving Machine Operator/Tender 06/18/22 documented as of this encounter
--- OUTSIDE RECORDS SUMMARY | 2023-07-25 11:35 | External Medical Summary ---
Author Name Unknown Address Unknown Organization K01:[facility] [place] [address] [place] [address] Laboratory Report Ordering Provider Test Date Status JEANRICHJOHN 02/16/2023 16:06:24 Final Deficient: <20 ng/mL
Ins ufficient: 20-29 ng/mL
Recommended/Optimum:30-50 ng/mL

Vitamin D intoxication is rare. If suspicious of Vitamin D toxicity, evaluation of serum Calcium and PTH is recommended. Observation Date Value Abnormality Reference (Units ) Status 25-OH Vitamin D total 02/16/2023 16:06:24 24 >19 (ng/mL) Final Performing Location LABORATORY [facility] - [address] [place] [address]
--- OUTSIDE RECORDS SUMMARY | 2023-07-25 11:35 | External Medical Summary | Summary of Care ---
Author Name Unknown Organization [facility] Address [address] [place] [address] Phone [phone] Care Team Providers Care Scrap Yard Worker Name Role Phone Robert Garza PA-C Primary Care Provider [phone] [phone] Reason for Visit * Reason Onset Date Comments Test Results 02/17/2023 Encounter Details Date Type Department Care Team Description 02/17/2023 Telephone [facility] [place] [address] Dennis Sanford MD [address] [place] [address] Test Results Allergies Active Allergy Reactions Severity [...] Tablet 2 08/29/2022 Active Vitamin D (Ergocalciferol) 13281 UNIT Oral CapsuleIndications: Vitamin D deficiency Take [...] been [facility] [place]. I would like her to be seen soon for assessment regarding whether to start dialysis. documented in this encounter Plan of Treatment Upcoming Encounters Date Type Specialty Care Team Description 05/20/2023 Office Visit Family Medicine Robert Garza PA-C [address] [place] [address] Health Maintenance Due Date Last Done Comments [...] the patient have Health Care Power of Patient Relations Manager? No Code Status History Code Status Date Activated Date Inactivated Comments Full Code 09/28/2018 11:48 PM 10/03/2018 4:20 PM This order reflects the patients wishes and were consensually agreed upon. Full Code 04/26/2016 12:06 PM 04/29/2016 11:05 PM Th is order reflects the patients wishes and were consensually agreed upon. Care Teams Scrap Yard Worker Relationship Specialty Start Date End Date Robert Garza PA-C [address] [place] [address] PCP - General Physician Model Technician 06/18/22 documented as of this encounter
--- OUTSIDE RECORDS SUMMARY | 2023-07-25 11:35 | External Medical Summary | Summary of Care ---
Author Name Unknown Organization [facility] Address [address] [place] [address] Phone [phone] Care Team Providers Care Museum Or Zoo Director Name Role Phone Robert Garza PA-C Primary Care Provider [phone] [phone] Reason for Visit * Reason Comments Outpatient Testing Encounter Details Date Type Department Care Team Description 02/16/2023 [facility] [phone] [address] Pre-transplant evaluation for ESRD (end stage renal disease); CKD (chronic kidney disease) stage 5, GFR less than 15 ml/min ([facility]); Chronic kidney disease, stage 5 ([facility]) Allergies Active Allergy Reactions Severity Noted Date Comments Amoxicillin-Pot Clavulanate Hives 04/26/2016 Pollen Other (Please comment) Medium 04/12/2012 Seasonal allergies: Itchy watery eyes, sneezes. 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 08/03/2019 Nephrotic range proteinuria 08/03/2019 Nephrotic syndrome 11/13/2017 Overview: See 11/2015 note documented as of this encounter (statuses as of 02/16/2023) Resolved Problems Problem Noted Date Resolved Date [...] as of this encounter (statuses as of 02/16/2023) Immunizations Name Administration Dates Next Due Seasonal [...] Office Visit Family Medicine Robert Garza PA-C [address] [place] [address] Pending Results Name Type Priority Associated Diagnoses Date /Time MONTHLY HLA CLASS 1 & 2 W/REFLEX, SOLID ORGAN TRANSPLANT Lab STAT Pre-transplant evaluation for ESRD (end stage renal disease) 02/16/2023 4:06 PM EDT RENAL FUNCTION PANEL Lab Routine CKD (chronic kidney disease) stage 5, GFR less than 15 ml/min (HCC) 02/16/2023 4:06 PM EDT CBC Lab Routine CKD (chronic kidney disease) stage 5, GFR less than 15 ml/min (HCC) 02/16/2023 4:06 PM EDT 25-HYDROXY VITAMIN D Lab Routine Chronic kidney disease, stage 5 (HCC) 02/16/2023 4:06 PM EDT Health Maintenance Due Date Last [...] ml/min (HCC) Chronic kidney disease, Stage V Chronic kidney disease, stage 5 (HCC) documented [...] the patient have Health Care Power of Clay Preparation Supervisor? No Code Status History Code Status Date Activated Date Inactivated Comments Full Code 09/28/2018 11:48 PM 10/03/2018 4:20 PM This order reflects the patients wishes and were consensually agreed upon. Full Code 04/26/2016 12:06 PM 04/29/2016 11:05 PM Th is order reflects the patients wishes and were consensually agreed upon. Care Teams Museum Or Zoo Director Relationship Specialty Start Date End Date Robert Garza PA-C [address] [place] [phone] PCP - General Physician Street Inspector 06/18/22 documented as of this encounter
--- OUTSIDE RECORDS SUMMARY | 2023-07-25 11:35 | External Medical Summary ---
Demographics Address [address] [place] [address] Phone Unavailable Phone Unavailable Preferred Language Unknown Marital Status Unknown Episcopal Affiliation Unknown Race Unknown Ethnic Group Unknown Author Name Unknown Address Unknown Organization : Laboratory Report Ordering Provider Test Date Status DEMETRA ESCOBAR 02/16/2023 16:06:24 Correction Observation Date Value Abnormality Reference (Units ) Status REFERENCE LAB SCANNED REPORT 02/16/2023 16:06:24 See Scanned Report Final Performing Location
--- OUTSIDE RECORDS SUMMARY | 2023-07-25 11:35 | External Medical Summary ---
Demographics Address [address] [place] [address] Phone Unavailable Phone Unavailable Preferred Language Unknown Marital Status Unknown Hinduism Affiliation Unknown Race Unknown Ethnic Group Unknown Author Name Unknown Address Unknown Organization K01:[facility] [place] [facility] [address] [facility] [place] [address] Laboratory Report Ordering Provider Test Date Status CARLO ROWLAND 02/16/2023 16:06:24 Final Observation Date Value Abnormality Reference (Units ) Status BUN 02/16/2023 16:06:24 79 Above high normal 6-20 (mg/dL) Final Creatinine 02/16/2023 16:06:24 8.1 Above high normal 0.5-1.0 (mg/dL) Final Glomerular filtration rate/1.73 sq M.predicted [Volume Rate/Area] in Serum, Plasma or Blood by Creatinine-based formula (CKD-EPI) 02/16/2023 16:06:24 6 Below low normal >=60 (mL/min) Final eGFR is calculated based on the CKD-EPI 2020 equation SODIUM 02/16/2023 16:06:24 136 135-146 (m mol/L) Final Potassium 02/16/2023 16:06:24 5.1 3.5-5.1 (m mol/L) Final Cl 02/16/2023 16:06:24 104 98-107 (mm ol/L) Final CO2 02/16/2023 16:06:24 18 Below low normal 22- 32 (mmol/L) Final Anion gap 02/16/2023 16:06:24 14 7-15 (mmol /L) Final Glucose 02/16/2023 16:06:24 89 70-120 (mg /dL) Final Calcium 02/16/2023 16:06:24 8.5 8.4-10.2 ( mg/dL) Final Albumin 02/16/2023 16:06:24 4.1 3.8-5.0 (g /dL) Final Phosphate 02/16/2023 16:06:24 6.5 Above high normal 2. 5-4.8 (mg/dL) Final Performing Location LABORATORY [facility] [place] - [address] [facility] [place] [address]
--- NOTE | 2023-07-25 11:59 | Nephrology Consultation ---
Date of Consultation July 25, 2023 Assessment & Plan (1) ESRD on peritoneal dialysis: She complains of abdominal pain mainly around the exit site, exit site looks slightly erythematous but no discharge. This started around midday yesterday, not associated with nausea/vomiting or fever. She last open her bowels yesterday. She has taken levofloxacin 250 mg for the last 2 days and has received Etrapenam while inpatient. Peritoneal effluent appears clean, no generalized abdomen tenderness or guarding on exam today, abdominal pain has vastly improved. She likely has exit site infection or Tunnelled infection, low probability of peritonitis. This could be Ovulatory pain as well. -Peritoneal fluid, cell count culture and Gram stain and swab culture has been sent-needs to follow on this. -Order ultrasound abdomen to look for tunnelled infection.-If the ultrasound scan is suggested of tunnel infection change Etrapenam him to meropenem for his pseudomonal cover, continue on IV antibiotics unless her pain subsides and then convert this to oral ciprofloxacin 500 mg daily--for a total of 10 days, if it is not suggestive of a tunnelled infection, she can be discharged on cephalexin for a total of 7 days 500 mg twice daily(if clinically well) and can be followed up by the peritoneal nurse on Thursday. Need to follow-up on the swab culture upon discharge. In either of the situations continue with the Mupiprion application twice daily. -However if the peritoneal fluid analysis shows peritonitis then she would need IP vancomycin plus ceftazidime with daily cell counts to monitor for resolution. Decision to discharge home with him to complete 2 weeks of IV antibiotics would depend upon how she responds to the IV antibiotics. Antibiotics can be narrowed as per peritoneal culture. - If she needs to stay today, she will be on CCPD-- Dialysis nurse aware and will set up the machine. (2) Abdominal pain: History of Present Illness Reason for Consultation: Pain along exit site of peritoneal dialysis catheter Peritoneal dialysis patient Attending Physician: Brisa Morrow MD History of Present Illness 28-year-old female , ESRD on PD (started recently , secondary to FSGS -primary road equipment operator Dr. Bhatia , dialyzes at [place]).she presented to the ER with abdominal pain which started around 2 PM .she contacted the emergency PD nurse who advised her to drain the fluid and go to ER for suspected peritonitis. Her pain was mainly concentrated around the exit site of the PD catheter. No discharge but she noticed erythema around it. Denied any fever, nausea, diarrhea shortness of breath. She last open her bowels yesterday. She is not on menstrual period, denies any vaginal discharge, However she may Ovulating( she track this with obi which shows that she has Ovulated). CT scan of abdomen ruled out any acute intra-abdominal pathology. She was started on Etrapenam. Normal WBC, with K on wnl, Eulovemic on exam, Normal hemodynamics. On examination today she was comfortable, her abdominal pain has vastly improved. This is mainly along the exit site. Exit sites look clean with no discharge but some erythema around it. Abdomen is soft, nontender with no guarding or rigidity She on on manual exchanges. Past medical history of hypothyroidism, hypertension, nephrotic syndrome, focal segmental glomerulosclerosis with nephrosis,end-stage renal disease on peritoneal dialysis, history of abnormal uterine bleeding, anxiety and depression. Allergies Allergy/AdvReac Type Severity Reaction Status Date / Time amoxicillin [From Augmentin] Allergy Intermediate Rash Verified 07/24/23 23:24 clavulanic acid Allergy Intermediate Rash Verified 07/24/23 23:24 [From Augmentin] pollen extracts Allergy Intermediate ITCHY Verified 07/24/23 23:24 EYES, SNEEZING, CONGESTION Home Medications Medication Instructions Recorded Confirmed Type carvedilol 12.5 mg tablet 12.5 mg PO BID 07/24/23 07/24/23 History levofloxacin 250 mg tablet 250 mg PO DAILY 07/24/23 07/24/23 History levothyroxine 50 mcg tablet 50 mcg PO DAILYBB 07/24/23 07/24/23 History promethazine-DM 6.25 mg-15 mg/5 mL 5 ml PO QID PRN Cough 07/24/23 07/24/23 History oral syrup Patient History Medical History (Updated 07/25/23 @ 11:59 by Deana Mo MD) Proteinuria FSGS (focal segmental glomerulosclerosis) Nephrotic syndrome Chronic kidney disease, stage V Surgical History (Updated 07/24/23 @ 22:31 by Denzel Ruffin PA-C) History of section H/O laparoscopy With intraperitoneal catheter placement performed 05/29/2023 Dr. Laci Elena @ [facility]. Social History Smoking Status: Never smoker Hx Alcohol Use: No Hx Substance Use: No Preferred Language: Indian Communication Ability: Effective Brokerage Manager Required: No Beliefs That Will Affect Care: None Current Living Situation: Family and Significant Other Feels Safe at Home: Yes Assistive Devices: Glasses Assistive Devices Comment: not with pt Review of Systems 2 Review of Systems: Alert, oriented comfortable No shortness of breath, no pedal edema Abdomen soft nontender, no guarding or rigidity. Pain on palpation on the exit site. Results & Data Vital Signs (Past 12 Hours) Vital Signs Pulse Pulse Resp BP Pulse Ox O2 Del Method 07/25/23 08:00 69 17 128/78 96 Room Air 07/25/23 06:00 69 16 121/69 98 Room Air 07/25/23 04:18 62 16 132/80 97 Room Air 07/25/23 02:57 75 20 138/83 99 Room Air 07/25/23 01:00 87 17 138/83 99 Room Air Laboratory Results 07/25/23 10:07 07/25/23 10:07 (2) Abdominal pain Abdominal location: generalized Qualified Code(s): R10.84 - Generalized abdominal pain
--- NOTE | 2023-07-25 14:12 | Communication Note ---
Date of Service: July 25, 2023 Evaluated pt at bedside in ED and in new room. Reports pain getting better since admission, but feels tenderness localized around PD cath. Site with localized erythema Discussed case with Dr. Mo -Fluid counts with WBC <10 and no bacteria on culture as of yet -s/p 1 dose ertapenem -US pending for tunneled infection -if positive, will need to transition to cipro/flagyl -if negative, Keflex x7 days Formal progress note to follow in am
--- NOTE | 2023-07-25 14:40 | Ultrasound Report ---
ABDOMINAL ULTRASOUND, RIGHT UPPER QUADRANT HISTORY: looking for cellulitis PD site v peritonitis. COMPARISON: CT of the abdomen and pelvis July 24, 2023. TECHNIQUE: Sonography of the anterior abdominal wall adjacent to the peritoneal dialysis catheter was performed. FINDINGS: No abdominal wall fluid collection or other sonographic abnormality adjacent to the periton eal dialysis catheter was identified. IMPRESSION: No abdominal wall fluid collection or other sonographic abnormality adjacent to the perit klein dialysis catheter identified. ACT 112: Negative or not required by law. Electronically signed by: Virgil Rebolledo M.D. 07/25/2023 2:39 PM
--- NOTE | 2023-07-25 17:11 | Discharge Summary ---
Discharge Summary Date of Service July 25, 2023 Notes For Next Care Provider Medication Changes From Visit Keflex 500mg BID for cellulitis for 7 days Admission HPI Per Admitting Provider 28-year-old female with past medical history significant for hypothyroidism, hypertension, nephrotic syndrome, focal segmental glomerulosclerosis with nephrosis,end-stage renal disease on peritoneal dialysis, history of abnormal uterine bleeding, anxiety and depression presents with severe abdominal pain. Pain is located around peritoneal dialysis catheter site. Denies any fevers. No chest pain or shortness of breath. No nausea. No headache. No runny nose or sore throat or cough. No diarrhea or constipation. Hemodynamics are stable. Past medical history. As mentioned above Past surgical history. . Insert contraceptive capsules. IR biopsy. Laparoscopic insertion of intraperitoneal cannula. Renal biopsy. Social history. No smoking. No alcohol use. No drug use. Family history. Father has scoliosis. Admission Exam Per Admitting Provider General- Not in distress Head- atraumatic Eyes- PERRL. ENT- oropharynx clear Neck- supple, no JVD. Lungs- clear to auscultation no wheezing or crackles. Heart- regular rhythm; no murmur, no gallop. Abdomen- normal bowel sounds, soft, nontender, no distension. Peritoneal cath site no erythema or drainage seen. Extremities- no pretibial edema, no erythema Neuro- alert, oriented x 3; PERRL no facial palsy; no dysarthria; moves extremities. Skin- warm & dry Principal Dx & Hospital Course #1 = Principal Diagnosis (1) Abdominal pain: Ms Lane is a 28-year-old female with past medical history significant for hypothyroidism, hypertension, nephrotic syndrome, focal segmental glomerulosclerosis with nephrosis,end-stage renal disease on peritoneal dialysis, history of abnormal uterine bleeding, anxiety and depression presents with severe abdominal pain. Pain is located around peritoneal dialysis catheter site. Denies any fevers. No chest pain or shortness of breath. No nausea. No headache. No runny nose or sore throat or cough. No diarrhea or constipation. Hemodynamics are stable. On admission, culture and cell count was obtained from peritoneal fluid, which were not concerning for peritonitis. Abdominal ultrasound did not reveal signs of tunneled line infection. Patient was discharged with keflex for cellulitis with plans for follow up with her manager quantitative. Care was cooridinated with Dr. Izaguirre. Abdominal pain Possible PD cath site infection -Nephrology consulted, likely cellulitis Home with Keflex 500mg bid x 7 days History of focal segmental glomerulosclerosis End-stage renal disease on peritoneal dialysis -resume home PD Hypertension On Coreg Hypothyroidism On Synthyroid On day of dialysis, patient was afebrile, HDS, and endorsed understanding about plan for discharge. Discharge Exam Constitutional WD/WN, vitals as above Respiratory normal respiratory effort, lungs clear to auscultation Cardiovascular RRR, no murmur, no edema Gastrointestinal (Abdomen) PD site with no drainage +surround erythema, NTND,no guarding Updated Medication List Medication Instructions Recorded Confirmed Type carvedilol 12.5 mg tablet 12.5 mg PO BID 07/24/23 07/24/23 History levothyroxine 50 mcg tablet 50 mcg PO DAILYBB 07/24/23 07/24/23 History promethazine-DM 6.25 mg-15 mg/5 mL 5 ml PO QID PRN Cough 07/24/23 07/24/23 History oral syrup cephalexin 500 mg capsule 500 mg PO BIDM 7 days #11 caps 07/25/23 Rx Hospital Stay Data Consultations 07/25/23 01:35 ED Decision to Admit Stat 07/25/23 09:33 Consult Nephrology Routine Diagnostic Imagining Performed 07/24/23 22:24 CT abd pelvis wo con Stat 07/25/23 11:33 US abdomen limited Routine Pending Results Patient Have Any Pending Studies at Discharge: No Discharge Instructions Given to Patient (Per Discharging Provider) You were admitted for abdominal pain around your PD site catheter. Your fluid studies were negative for infection. Your ultrasound was negative for tunneled infection or abscess around the catheter. You will be sent home with 3 doses of Keflex and a prescription for 11 doses to your pharmacy in [place]. Keflex is for cellulitis. Please take your does this evening when getting home with dinner/snack. Please take the 3 doses and the doses at your pharmacy, which will account for a total of 7 days (14 doses) of treatment. Please follow up with your manager quantitative regarding your symptoms. Total Time Total Time Spent Total Time Spent (In Minutes): 55
== END 2023-07-25 18:16 | disposition home or self-care (01) | DRG 602 ==
LOC: ED 21:26 → EDINP 07-25 05:35 → 3E 07-25 09:14